=== PATIENT | male | born 1990 | race Caucasian/White ===

== ENCOUNTER 2016-11-29 10:14 | Inpatient (IN) | payer OTHER ==
[2016-11-29 11:08] VITALS: BMI 24.3
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
[2016-11-29] MEDS ORDERED: chlordiazePOXIDE HCL 25 MG CAPSULE PO PRN (12:26)
[2016-11-29] MEDS ORDERED: MAGNESIUM HYDROX 2400MG/30ML ORAL SUSPENSION 30 ML CUP PO PRN (12:26)
[2016-11-29] MEDS ORDERED: LOPERAMIDE HCL 2 MG CAPSULE PO PRN (12:26)
[2016-11-29] MEDS ORDERED: ACETAMINOPHEN 325 MG TABLET (FP) PO PRN (12:26)
[2016-11-29] MEDS ORDERED: MENTHOL/PHENOL 1 EACH UD MM PRN (12:26)
[2016-11-29] MEDS ORDERED: P-EPHED 60MG/TRIPROLIDI 2.5MG TABLET PO PRN (12:26)
[2016-11-29] MEDS ORDERED: MAG HYDROX/AL HYDROX/SIMETH 30 ML UNIT-DOSE CUP PO PRN (12:26)
[2016-11-29] MEDS ORDERED: hydrOXYzine PAMOATE 50 MG CAPSULE (FP) PO PRN (12:26)
[2016-11-29] MEDS ORDERED: guaiFENesin/D-METHORPHAN HB 10 ML UNIT-DOSE CUPS PO PRN (12:26)
[2016-11-29] MEDS ORDERED: MAGNESIUM CITRATE 300 ML BOTTLE PO PRN (12:26)
[2016-11-29] MEDS ORDERED: IBUPROFEN 400 MG TABLET (FP) PO PRN (12:26)
[2016-11-29] MEDS ORDERED: chlordiazePOXIDE HCL 25 MG CAPSULE PO ONE (15:00)
[2016-11-29] MEDS: CEPHALEXIN MONOHYDRATE 500 MG CAPSULE (UD) PO SCH ×2 (17:58→22:13)
[2016-11-29] MEDS: chlordiazePOXIDE HCL 25 MG CAPSULE PO SCH ×2 (18:00→22:13)
[2016-11-29] MEDS: NICOTINE 21 MG/24 HOURS TOPICAL PATCH TD SCH (18:03)
[2016-11-29 19:22] LABS: URINE APPEARANCE CLEAR; URINE BLOOD NEGATIVE (NEGATIVE); URINE GLUCOSE (UA) NEGATIVE (NEGATIVE); URINE KETONE TRACE (NEGATIVE); URINE LEUK ESTERASE NEGATIVE (NEGATIVE); URINE NITRITE NEGATIVE (NEGATIVE); URINE UROBILINOGEN NEGATIVE E.U./dl (0.2-1.0)
[2016-11-29 19:23] LABS: URINE COLOR YELLOW; URINE PROTEIN 1+ (NEGATIVE)
[2016-11-29 19:25] LABS: URINE MUCUS MANY; URINE RBC 28 /hpf (0-3); URINE WBC 2 /hpf (3-5)
[2016-11-29] MEDS ORDERED: diphenhydrAMINE HCL 50 MG CAPSULE PO PRN (22:00)
[2016-11-29] MEDS: THIAMINE HCL 100 MG TABLET (FP) PO SCH (22:13)
[2016-11-30] MEDS: chlordiazePOXIDE HCL 25 MG CAPSULE PO SCH ×4 (05:56→22:26)
[2016-11-30] MEDS: NICOTINE 21 MG/24 HOURS TOPICAL PATCH TD SCH (10:42)
[2016-11-30] MEDS ORDERED: METHADONE HCL 10 MG TABLET (FOR DETOX USE ONLY) PO ONE (11:00)
[2016-11-30 11:02] LABS: URINE APPEARANCE CLEAR; URINE BILIRUBIN NEGATIVE (NEGATIVE); URINE BLOOD 2+ (NEGATIVE); URINE COLOR YELLOW; URINE GLUCOSE (UA) NEGATIVE (NEGATIVE); URINE KETONE NEGATIVE (NEGATIVE); URINE NITRITE NEGATIVE (NEGATIVE); URINE PROTEIN NEGATIVE (NEGATIVE); URINE UROBILINOGEN NEGATIVE E.U./dl (0.2-1.0)
[2016-11-30 11:03] LABS: URINE LEUK ESTERASE TRACE (NEGATIVE)
[2016-11-30 11:04] LABS: MCHC 33.9 g/dl (32.0-35.9); MEAN CELL VOLUME 94.6 fl (80-96); MEAN PLT VOLUME 8.9 fl (7.5-11.1); PLATELET COUNT 224 K/MM3 (134-434); RDW 13.2 % (11.9-15.9); WHITE BLOOD COUNT 4.9 K/mm3 (4.0-10.0)
[2016-11-30 11:07] LABS: CALCIUM OXALATE CRYSTALS MODERATE /hpf (NONE SEEN); URINE MUCUS RARE; URINE RBC 11 /hpf (0-3); URINE WBC <1 /hpf (3-5)
[2016-11-30] MEDS ORDERED: METHADONE HCL 5 MG TABLET ONE (11:21)
[2016-11-30] MEDS ORDERED: METHADONE HCL 40 MG DISPERSABLE TABLET ONE (11:22)
[2016-11-30 11:26] LABS: ALBUMIN 3.3 g/dl (3.4-5.0); ALK PHOS 55 U/L (45-117); ANION GAP 8 (8-16); BILIRUBIN,TOTAL 0.2 mg/dL (0.2-1.0); CALCIUM 8.2 mg/dL (8.5-10.1); CO2 28 mmol/L (21-32); COCKROFT - GAULT 161.27; CREATININE 0.7 mg/dL (0.7-1.3); GLUCOSE,RANDOM 84 mg/dL (74-106); SGOT/AST 26 U/L (15-37); SGPT/ALT 28 U/L (12-78); TOT PROT 6.3 g/dl (6.4-8.2)
[2016-11-30] MEDS ORDERED: METHADONE 80 MG, METHADONE 5 MG PO ONE (11:30)
[2016-11-30] MEDS: CEPHALEXIN MONOHYDRATE 500 MG CAPSULE (UD) PO SCH ×2 (12:38→22:26)
[2016-11-30] MEDS: PRENATAL VITAMINS W/ FOLIC ACID TABLET (FP) PO SCH (12:38)
--- NOTE | 2016-11-30 12:44 | EKG ---
Test Reason : Blood Pressure : / mmHG Vent. Rate : 058 BPM Atrial Rate : 058 BPM P-R Int : 146 ms QRS Dur : 094 ms QT Int : 448 ms P-R-T Axes : 004 065 039 degrees QTc Int : 439 ms SINUS BRADYCARDIA NON-SPECIFIC INTRA-VENTRICULAR CONDUCTION DELAY NO PREVIOUS ECGS AVAILABLE Confirmed by FRED PRABHAKAR MD ([id number]) on 11/30/2016 12:44:20 PM Referred By: Confirmed By:FRED PRABHAKAR MD
--- NOTE | 2016-11-30 12:50 | PN ---
[facility] CIWA - CIWA Score Nausea/Vomitin-No Nausea/No Vomiting Muscle Tremors: 4-Moderate,w/Arms Extend Anxiety: 4-Mod. Anxious/Guarded Agitation: 4-Moderately Restless Paroxysmal Sweats: No Perspiration Orientation: 0-Oriented Tacttile Disturbances: 1-Very Mild Itch/Numbness Auditory Disturbances: 0-None Visual Disturbances: 0-None Headache: 2-Mild CIWA-Ar Total Score: 15 S Progress Note (SOAP) Subjective: Anxious, restless, sweating, chills, tremor, interrupted sleep Objective: 11/30/16 12:45 Last Vital Signs Temp Pulse Resp BP Pulse Ox 97.6 F 71 18 125/75 11/30/16 09:34 11/30/16 09:34 11/30/16 09:34 11/30/16 09:34 Laboratory Tests 11/29/16 11/30/16 11/30/16 19:03 07:00 07:00 WBC 4.9 D RBC 4.27 Hgb 13.7 D Hct 40.4 MCV 94.6 MCHC 33.9 RDW 13.2 Plt Count 224 D MPV 8.9 D Sodium 142 Potassium 4.3 Chloride 106 Carbon Dioxide 28 Anion Gap 8 BUN 13 Creatinine 0.7 D Creat Clearance w eGFR > 60 Random Glucose 84 Calcium 8.2 L Total Bilirubin 0.2 D AST 26 ALT 28 D Alkaline Phosphatase 55 D Total Protein 6.3 L Albumin 3.3 L Urine Color Yellow Urine Appearance Clear Urine pH 6.0 Ur Specific [place] 1.034 Urine Protein 1+ H Urine Glucose (UA) Negative Urine Ketones Trace H Urine Blood Negative Urine Nitrite Negative Urine Bilirubin 2.0 Urine Urobilinogen Negative Ur Leukocyte Esterase Negative Urine RBC 28 Urine WBC 2 Ur Epithelial Cells Rare Calcium Oxalate Crystal Urine Mucus Many RPR Titer 11/30/16 11/30/16 07:00 09:58 WBC RBC Hgb Hct MCV MCHC RDW Plt Count MPV Sodium Potassium Chloride Carbon Dioxide Anion Gap BUN Creatinine Creat Clearance w eGFR Random Glucose Calcium Total Bilirubin AST ALT Alkaline Phosphatase Total Protein Albumin Urine Color Yellow Urine Appearance Clear Urine pH 5.0 Ur Specific [place] 1.028 Urine Protein Negative Urine Glucose (UA) Negative Urine Ketones Negative Urine Blood 2+ H Urine Nitrite Negative Urine Bilirubin Negative Urine Urobilinogen Negative Ur Leukocyte Esterase Trace H Urine RBC 11 Urine WBC <1 Ur Epithelial Cells Rare Calcium Oxalate Crystal Moderate Urine Mucus Rare RPR Titer Nonreactive Labs noted: UA: 2+ blood, 1+ protein Assessment: 11/30/16 12:50 Withdrawal symptoms Noted with hematuria and proteinuria Plan: Continue detox Hematuria and proteinuria: encouraged to drink lots of water, repeat UA
[2016-11-30] MEDS: NICOTINE POLACRILEX 4 MG GUM BUC PRN ×2 (18:03→22:27)
[2016-11-30] MEDS: THIAMINE HCL 100 MG TABLET (FP) PO SCH (22:26)
[2016-12-01] MEDS: chlordiazePOXIDE HCL 25 MG CAPSULE PO SCH ×2 (05:45→10:29)
[2016-12-01] MEDS ORDERED: METHADONE HCL 40 MG DISPERSABLE TABLET PO SCH (09:00)
[2016-12-01] MEDS ORDERED: METHADONE HCL 40 MG DISPERSABLE TABLET ONE (09:11)
[2016-12-01] MEDS ORDERED: METHADONE HCL 5 MG TABLET ONE (09:11)
[2016-12-01] MEDS: CEPHALEXIN MONOHYDRATE 500 MG CAPSULE (UD) PO SCH ×2 (10:29→22:11)
[2016-12-01] MEDS: PRENATAL VITAMINS W/ FOLIC ACID TABLET (FP) PO SCH (10:29)
[2016-12-01] MEDS: METHADONE 80 MG, METHADONE 5 MG PO SCH (10:30)
[2016-12-01] MEDS: NICOTINE POLACRILEX 4 MG GUM BUC PRN ×4 (10:33→22:13)
--- NOTE | 2016-12-01 15:14 | PN ---
[facility] CIWA - CIWA Score Nausea/Vomitin-No Nausea/No Vomiting Muscle Tremors: 4-Moderate,w/Arms Extend Anxiety: 4-Mod. Anxious/Guarded Agitation: 4-Moderately Restless Paroxysmal Sweats: 3 Orientation: 0-Oriented Tacttile Disturbances: 0-None Auditory Disturbances: 0-None Visual Disturbances: 0-None Headache: 0-None Present CIWA-Ar Total Score: 15 BHS Progress Note (SOAP) Subjective: Sweating,interrupted sleep,restless,tremors Objective: 12/01/16 15:13 Vital Signs - 8 hr 12/01/16 12/01/16 12/01/16 09:21 13:56 13:58 Temperature 97.4 F L Pulse Rate 59 L 70 70 Respiratory 20 18 18 Rate Blood Pressure 102/63 122/68 122/68 Laboratory Tests 11/29/16 11/30/16 11/30/16 19:03 07:00 07:00 WBC 4.9 D RBC 4.27 Hgb 13.7 D Hct 40.4 MCV 94.6 MCHC 33.9 RDW 13.2 Plt Count 224 D MPV 8.9 D Sodium 142 Potassium 4.3 Chloride 106 Carbon Dioxide 28 Anion Gap 8 BUN 13 Creatinine 0.7 D Creat Clearance w eGFR > 60 Random Glucose 84 Calcium 8.2 L Total Bilirubin 0.2 D AST 26 ALT 28 D Alkaline Phosphatase 55 D Total Protein 6.3 L Albumin 3.3 L Urine Color Yellow Urine Appearance Clear Urine pH 6.0 Ur Specific [place] 1.034 Urine Protein 1+ H Urine Glucose (UA) Negative Urine Ketones Trace H Urine Blood Negative Urine Nitrite Negative Urine Bilirubin 2.0 Urine Urobilinogen Negative Ur Leukocyte Esterase Negative Urine RBC 28 Urine WBC 2 Ur Epithelial Cells Rare Calcium Oxalate Crystal Urine Mucus Many RPR Titer 11/30/16 11/30/16 07:00 09:58 WBC RBC Hgb Hct MCV MCHC RDW Plt Count MPV Sodium Potassium Chloride Carbon Dioxide Anion Gap BUN Creatinine Creat Clearance w eGFR Random Glucose Calcium Total Bilirubin AST ALT Alkaline Phosphatase Total Protein Albumin Urine Color Yellow Urine Appearance Clear Urine pH 5.0 Ur Specific [place] 1.028 Urine Protein Negative Urine Glucose (UA) Negative Urine Ketones Negative Urine Blood 2+ H Urine Nitrite Negative Urine Bilirubin Negative Urine Urobilinogen Negative Ur Leukocyte Esterase Trace H Urine RBC 11 Urine WBC <1 Ur Epithelial Cells Rare Calcium Oxalate Crystal Moderate Urine Mucus Rare RPR Titer Nonreactive labs noted Assessment: 12/01/16 15:14 Withdrawal sx. Plan: Continue detox
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
[2016-12-01] MEDS: chlordiazePOXIDE 5 MG CAPSULE PO SCH ×2 (17:23→22:11)
[2016-12-01] MEDS: THIAMINE HCL 100 MG TABLET (FP) PO SCH (22:10)
[2016-12-02] MEDS ORDERED: METHADONE HCL 5 MG TABLET ONE (04:03)
[2016-12-02] MEDS ORDERED: METHADONE HCL 40 MG DISPERSABLE TABLET ONE (04:04)
[2016-12-02] MEDS: METHADONE 80 MG, METHADONE 5 MG PO SCH (05:52)
[2016-12-02] MEDS: chlordiazePOXIDE 5 MG CAPSULE PO SCH ×2 (05:52→10:12)
[2016-12-02] MEDS: NICOTINE POLACRILEX 4 MG GUM BUC PRN ×4 (05:57→21:27)
--- NOTE | 2016-12-02 09:37 | PN ---
B[facility] Progress Note (SOAP) Subjective: Sweating,interrupted sleep & body aches Objective: 12/02/16 09:35 Vital Signs - 8 hr 12/02/16 12/02/16 12/02/16 03:03 03:30 06:21 Temperature 97.5 F L Pulse Rate 61 Respiratory 18 18 16 Rate Blood Pressure 111/63 12/02/16 09:21 Temperature Pulse Rate 66 Respiratory 20 Rate Blood Pressure 117/75 Laboratory Last Values WBC 4.9 K/mm3 (4.0-10.0) D 11/30/16 07:00 RBC 4.27 M/mm3 (4.00-5.60) 11/30/16 07:00 Hgb 13.7 GM/dL (11.7-16.9) D 11/30/16 07:00 Hct 40.4 % (35.4-49) 11/30/16 07:00 MCV 94.6 fl (80-96) 11/30/16 07:00 MCHC 33.9 g/dl (32.0-35.9) 11/30/16 07:00 RDW 13.2 % (11.9-15.9) 11/30/16 07:00 Plt Count 224 K/MM3 (134-434) D 11/30/16 07:00 MPV 8.9 fl (7.5-11.1) D 11/30/16 07:00 Sodium 142 mmol/L (136-145) 11/30/16 07:00 Potassium 4.3 mmol/L (3.5-5.1) 11/30/16 07:00 Chloride 106 mmol/L (98-107) 11/30/16 07:00 Carbon Dioxide 28 mmol/L (21-32) 11/30/16 07:00 Anion Gap 8 (8-16) 11/30/16 07:00 BUN 13 mg/dL (7-18) 11/30/16 07:00 Creatinine 0.7 mg/dL (0.7-1.3) D 11/30/16 07:00 Creat Clearance w eGFR > 60 (>60) 11/30/16 07:00 Random Glucose 84 mg/dL (74-106) 11/30/16 07:00 Calcium 8.2 mg/dL (8.5-10.1) L 11/30/16 07:00 Total Bilirubin 0.2 mg/dL (0.2-1.0) D 11/30/16 07:00 AST 26 U/L (15-37) 11/30/16 07:00 ALT 28 U/L (12-78) D 11/30/16 07:00 Alkaline Phosphatase 55 U/L (45-117) D 11/30/16 07:00 Total Protein 6.3 g/dl (6.4-8.2) L 11/30/16 07:00 Albumin 3.3 g/dl (3.4-5.0) L 11/30/16 07:00 Urine Color Yellow 11/30/16 09:58 Urine Appearance Clear 11/30/16 09:58 Urine pH 5.0 (5.0-8.0) 11/30/16 09:58 Ur Specific [place] 1.028 (1.001-1.035) 11/30/16 09:58 Urine Protein Negative (NEGATIVE) 11/30/16 09:58 Urine Glucose (UA) Negative (NEGATIVE) 11/30/16 09:58 Urine Ketones Negative (NEGATIVE) 11/30/16 09:58 Urine Blood 2+ (NEGATIVE) H 11/30/16 09:58 Urine Nitrite Negative (NEGATIVE) 11/30/16 09:58 Urine Bilirubin Negative (NEGATIVE) 11/30/16 09:58 Urine Urobilinogen Negative E.U./dl (0.2-1.0) 11/30/16 09:58 Ur Leukocyte Esterase Trace (NEGATIVE) H 11/30/16 09:58 Urine RBC 11 /hpf (0-3) 11/30/16 09:58 Urine WBC <1 /hpf (3-5) 11/30/16 09:58 Ur Epithelial Cells Rare /hpf (FEW) 11/30/16 09:58 Calcium Oxalate Crystal Moderate /hpf (NONE SEEN) 11/30/16 09:58 Urine Mucus Rare 11/30/16 09:58 RPR Titer Nonreactive (NONREACTIVE) 11/30/16 07:00 labs noted Assessment: 12/02/16 09:36 Withdrawal sx. Plan: Continue detox
[2016-12-02] MEDS: PRENATAL VITAMINS W/ FOLIC ACID TABLET (FP) PO SCH (10:12)
[2016-12-02] MEDS: CEPHALEXIN MONOHYDRATE 500 MG CAPSULE (UD) PO SCH ×2 (10:12→23:03)
[2016-12-02] MEDS: chlordiazePOXIDE HCL 10 MG CAPSULE PO SCH ×2 (17:12→23:04)
[2016-12-02] MEDS: THIAMINE HCL 100 MG TABLET (FP) PO SCH (23:04)
[2016-12-03] MEDS ORDERED: METHADONE HCL 40 MG DISPERSABLE TABLET ONE (04:37)
[2016-12-03] MEDS ORDERED: METHADONE HCL 5 MG TABLET ONE (04:37)
[2016-12-03] MEDS: chlordiazePOXIDE HCL 10 MG CAPSULE PO SCH ×2 (06:11→10:27)
[2016-12-03] MEDS: METHADONE 80 MG, METHADONE 5 MG PO SCH (06:11)
[2016-12-03] MEDS: NICOTINE POLACRILEX 4 MG GUM BUC PRN ×6 (06:13→22:07)
[2016-12-03] MEDS: CEPHALEXIN MONOHYDRATE 500 MG CAPSULE (UD) PO SCH (10:27)
[2016-12-03] MEDS: PRENATAL VITAMINS W/ FOLIC ACID TABLET (FP) PO SCH (10:27)
--- NOTE | 2016-12-03 12:02 | PN ---
BHS Progress Note (SOAP) Subjective: Sweating, Tremors. Objective: PT. A & O X 2 (DISORIENTED ABOUT DAY / DATE). PT. OBSERVED AMBULATING ON UNIT. 12/03/16 11:58 Vital Signs Temperature 97.6 F 12/03/16 09:46 Pulse Rate 73 12/03/16 09:46 Respiratory Rate 18 12/03/16 09:46 Blood Pressure 120/76 12/03/16 09:46 O2 Sat by Pulse Oximetry (%) Laboratory Last Values WBC 4.9 K/mm3 (4.0-10.0) D 11/30/16 07:00 RBC 4.27 M/mm3 (4.00-5.60) 11/30/16 07:00 Hgb 13.7 GM/dL (11.7-16.9) D 11/30/16 07:00 Hct 40.4 % (35.4-49) 11/30/16 07:00 MCV 94.6 fl (80-96) 11/30/16 07:00 MCHC 33.9 g/dl (32.0-35.9) 11/30/16 07:00 RDW 13.2 % (11.9-15.9) 11/30/16 07:00 Plt Count 224 K/MM3 (134-434) D 11/30/16 07:00 MPV 8.9 fl (7.5-11.1) D 11/30/16 07:00 Sodium 142 mmol/L (136-145) 11/30/16 07:00 Potassium 4.3 mmol/L (3.5-5.1) 11/30/16 07:00 Chloride 106 mmol/L (98-107) 11/30/16 07:00 Carbon Dioxide 28 mmol/L (21-32) 11/30/16 07:00 Anion Gap 8 (8-16) 11/30/16 07:00 BUN 13 mg/dL (7-18) 11/30/16 07:00 Creatinine 0.7 mg/dL (0.7-1.3) D 11/30/16 07:00 Creat Clearance w eGFR > 60 (>60) 11/30/16 07:00 Random Glucose 84 mg/dL (74-106) 11/30/16 07:00 Calcium 8.2 mg/dL (8.5-10.1) L 11/30/16 07:00 Total Bilirubin 0.2 mg/dL (0.2-1.0) D 11/30/16 07:00 AST 26 U/L (15-37) 11/30/16 07:00 ALT 28 U/L (12-78) D 11/30/16 07:00 Alkaline Phosphatase 55 U/L (45-117) D 11/30/16 07:00 Total Protein 6.3 g/dl (6.4-8.2) L 11/30/16 07:00 Albumin 3.3 g/dl (3.4-5.0) L 11/30/16 07:00 Urine Color Yellow 11/30/16 09:58 Urine Appearance Clear 11/30/16 09:58 Urine pH 5.0 (5.0-8.0) 11/30/16 09:58 Ur Specific [place] 1.028 (1.001-1.035) 11/30/16 09:58 Urine Protein Negative (NEGATIVE) 11/30/16 09:58 Urine Glucose (UA) Negative (NEGATIVE) 11/30/16 09:58 Urine Ketones Negative (NEGATIVE) 11/30/16 09:58 Urine Blood 2+ (NEGATIVE) H 11/30/16 09:58 Urine Nitrite Negative (NEGATIVE) 11/30/16 09:58 Urine Bilirubin Negative (NEGATIVE) 11/30/16 09:58 Urine Urobilinogen Negative E.U./dl (0.2-1.0) 11/30/16 09:58 Ur Leukocyte Esterase Trace (NEGATIVE) H 11/30/16 09:58 Urine RBC 11 /hpf (0-3) 11/30/16 09:58 Urine WBC <1 /hpf (3-5) 11/30/16 09:58 Ur Epithelial Cells Rare /hpf (FEW) 11/30/16 09:58 Calcium Oxalate Crystal Moderate /hpf (NONE SEEN) 11/30/16 09:58 Urine Mucus Rare 11/30/16 09:58 RPR Titer Nonreactive (NONREACTIVE) 11/30/16 07:00 LABS NOTED. Assessment: 12/03/16 12:00 WITHDRAWAL SYMPTOMS. Plan: CONTINUE DETOX. ADVISED PATIENT TO FOLLOW-UP WITH [facility] / REHAB MEDICAL PROVIDER AFTER DISCHARGE FROM DETOX FOR GENERAL MEDICAL ASSESSMENT AND FOR ABNORMAL ADMISSION LAB VALUES.
[2016-12-03] MEDS: THIAMINE HCL 100 MG TABLET (FP) PO SCH (22:34)
[2016-12-04] MEDS: NICOTINE POLACRILEX 4 MG GUM BUC PRN ×2 (01:18→09:09)
[2016-12-04] MEDS ORDERED: METHADONE HCL 5 MG TABLET ONE (04:49)
[2016-12-04] MEDS ORDERED: METHADONE HCL 40 MG DISPERSABLE TABLET ONE (04:50)
[2016-12-04] MEDS: METHADONE 80 MG, METHADONE 5 MG PO SCH (05:39)
[2016-12-04 06:31] VITALS: BP 119/79; PULSE 65; TEMP 97.1
[2016-12-04] MEDS: PRENATAL VITAMINS W/ FOLIC ACID TABLET (FP) PO SCH (10:52)
--- NOTE | 2016-12-04 11:10 | DS ---
[facility] Detox Discharge Summary Admission Date: 11/29/16 Discharge Date: 12/04/16 - History Present History: Alcohol Dependence, Cocaine Dependence, MMTP Pertinent Past History: ADHD - Physical Exam Results Vital Signs: Vital Signs Temperature 97.1 F L 12/04/16 06:31 Pulse Rate 65 12/04/16 06:31 Respiratory Rate 18 12/04/16 06:31 Blood Pressure 119/79 12/04/16 06:31 O2 Sat by Pulse Oximetry (%) Pertinent Admission Physical Exam Findings: withdrawal sx. Laboratory Last Values WBC 4.9 K/mm3 (4.0-10.0) D 11/30/16 07:00 RBC 4.27 M/mm3 (4.00-5.60) 11/30/16 07:00 Hgb 13.7 GM/dL (11.7-16.9) D 11/30/16 07:00 Hct 40.4 % (35.4-49) 11/30/16 07:00 MCV 94.6 fl (80-96) 11/30/16 07:00 MCHC 33.9 g/dl (32.0-35.9) 11/30/16 07:00 RDW 13.2 % (11.9-15.9) 11/30/16 07:00 Plt Count 224 K/MM3 (134-434) D 11/30/16 07:00 MPV 8.9 fl (7.5-11.1) D 11/30/16 07:00 Sodium 142 mmol/L (136-145) 11/30/16 07:00 Potassium 4.3 mmol/L (3.5-5.1) 11/30/16 07:00 Chloride 106 mmol/L (98-107) 11/30/16 07:00 Carbon Dioxide 28 mmol/L (21-32) 11/30/16 07:00 Anion Gap 8 (8-16) 11/30/16 07:00 BUN 13 mg/dL (7-18) 11/30/16 07:00 Creatinine 0.7 mg/dL (0.7-1.3) D 11/30/16 07:00 Creat Clearance w eGFR > 60 (>60) 11/30/16 07:00 Random Glucose 84 mg/dL (74-106) 11/30/16 07:00 Calcium 8.2 mg/dL (8.5-10.1) L 11/30/16 07:00 Total Bilirubin 0.2 mg/dL (0.2-1.0) D 11/30/16 07:00 AST 26 U/L (15-37) 11/30/16 07:00 ALT 28 U/L (12-78) D 11/30/16 07:00 Alkaline Phosphatase 55 U/L (45-117) D 11/30/16 07:00 Total Protein 6.3 g/dl (6.4-8.2) L 11/30/16 07:00 Albumin 3.3 g/dl (3.4-5.0) L 11/30/16 07:00 Urine Color Yellow 11/30/16 09:58 Urine Appearance Clear 11/30/16 09:58 Urine pH 5.0 (5.0-8.0) 11/30/16 09:58 Ur Specific [place] 1.028 (1.001-1.035) 11/30/16 09:58 Urine Protein Negative (NEGATIVE) 11/30/16 09:58 Urine Glucose (UA) Negative (NEGATIVE) 11/30/16 09:58 Urine Ketones Negative (NEGATIVE) 11/30/16 09:58 Urine Blood 2+ (NEGATIVE) H 11/30/16 09:58 Urine Nitrite Negative (NEGATIVE) 11/30/16 09:58 Urine Bilirubin Negative (NEGATIVE) 11/30/16 09:58 Urine Urobilinogen Negative E.U./dl (0.2-1.0) 11/30/16 09:58 Ur Leukocyte Esterase Trace (NEGATIVE) H 11/30/16 09:58 Urine RBC 11 /hpf (0-3) 11/30/16 09:58 Urine WBC <1 /hpf (3-5) 11/30/16 09:58 Ur Epithelial Cells Rare /hpf (FEW) 11/30/16 09:58 Calcium Oxalate Crystal Moderate /hpf (NONE SEEN) 11/30/16 09:58 Urine Mucus Rare 11/30/16 09:58 RPR Titer Nonreactive (NONREACTIVE) 11/30/16 07:00 labs noted - Treatment Hospital Course: Detox Protocol Followed, Detoxed Safely, Responded well, Discharged Condition Good, Rehab Referral Accepted Patient has Accepted a Rehab Referral to: [facility] - Medication Discharge Medications: Ambulatory Orders Dextroamphetamine/Amphetamine [Adderall Xr 30 mg Capsule] 30 mg PO DAILY Methadone HCl 85 mg PO DAILY 11/29/16 - Diagnosis (1) Cocaine dependence Current Visit: Yes Status: Acute Qualifiers: Substance use status: uncomplicated Qualified Code(s): F14.20 - Cocaine dependence, uncomplicated (2) Nicotine dependence Current Visit: Yes Status: Acute Qualifiers: Nicotine product type: cigarettes Substance use status: uncomplicated Qualified Code(s): F17.210 - Nicotine dependence, cigarettes, uncomplicated (3) Opioid dependence on agonist therapy Current Visit: Yes Status: Acute (4) Sedative hypnotic or anxiolytic dependence Current Visit: Yes Status: Acute (5) ADHD (attention deficit hyperactivity disorder) Current Visit: Yes Status: Chronic (6) Alcohol dependence with uncomplicated withdrawal Current Visit: Yes Status: Chronic (7) Drug-induced mood disorder Current Visit: Yes Status: Acute - AMA Did Patient Leave Against Medical Advice: No
== END 2016-12-04 12:25 | disposition other institution (70) | DRG 773 ==
LOC: YASAS 10:14 → Y3N 14:54
PROVIDERS: ADMIT Internal Medicine; ATTEND Internal Medicine
PROC: HZ2ZZZZ Detoxification Services for Substance Abuse Treatment (ICD-10-PCS; principal; 2016-11-29)
DX: F11.20 Opioid dependence, uncomplicated (principal); F13.20 Sedative, hypnotic or anxiolytic dependence, uncomplicated; F10.230 Alcohol dependence with withdrawal, uncomplicated; F14.20 Cocaine dependence, uncomplicated; F17.210 Nicotine dependence, cigarettes, uncomplicated; F90.9 Attention-deficit hyperactivity disorder, unspecified type; F19.24 Other psychoactive substance dependence with psychoactive substance-induced mood disorder; L03.113 Cellulitis of right upper limb; R31.9 Hematuria, unspecified; R80.9 Proteinuria, unspecified; Z86.69 Personal history of other diseases of the nervous system and sense organs
CPT/HCPCS: 36415; 80053; 81003; 81015; 85027; 86593; 93005; 93010

== ENCOUNTER 2016-12-04 12:36 | Inpatient (IN) | payer OTHER ==
[2016-12-04] MEDS ORDERED: LOPERAMIDE HCL 2 MG CAPSULE PO PRN (13:08)
[2016-12-04] MEDS ORDERED: MENTHOL/PHENOL 1 EACH UD MM PRN (13:08)
[2016-12-04] MEDS ORDERED: guaiFENesin/D-METHORPHAN HB 10 ML UNIT-DOSE CUPS PO PRN (13:08)
[2016-12-04] MEDS ORDERED: IBUPROFEN 400 MG TABLET (FP) PO PRN (13:08)
[2016-12-04] MEDS ORDERED: diphenhydrAMINE HCL 50 MG CAPSULE PO PRN (13:08)
[2016-12-04] MEDS ORDERED: P-EPHED 60MG/TRIPROLIDI 2.5MG TABLET PO PRN (13:08)
[2016-12-04] MEDS ORDERED: MAGNESIUM CITRATE 300 ML BOTTLE PO PRN (13:08)
[2016-12-04] MEDS ORDERED: MAG HYDROX/AL HYDROX/SIMETH 30 ML UNIT-DOSE CUP PO PRN (13:08)
[2016-12-04] MEDS ORDERED: ACETAMINOPHEN 325 MG TABLET (FP) PO PRN (13:08)
--- NOTE | 2016-12-04 16:27 | HP ---
[facility] Re[facility] Assess/Revision - Admission History Admitted to Rehab from: [facility] Date of Admission to Rehab: 12/04/16 - Vital signs Vital Signs: Vital Signs Period Temp Pulse Resp BP Sys/Carrillo Pulse Ox Last 24 Hr 98.5 F 74 18 114/67 - Findings Detox History & Physical reviewed: Yes Concur with findings: Yes Comments/Additional Findings: transferred from detox to rehab admission as per protocol
[2016-12-04] MEDS: THIAMINE HCL 100 MG TABLET (FP) PO SCH (22:15)
[2016-12-05] MEDS: NICOTINE POLACRILEX 4 MG GUM BUC PRN ×6 (03:51→21:51)
[2016-12-05] MEDS ORDERED: METHADONE HCL 5 MG TABLET ONE (04:14)
[2016-12-05] MEDS ORDERED: METHADONE HCL 40 MG DISPERSABLE TABLET ONE (04:14)
[2016-12-05] MEDS ORDERED: METHADONE HCL 10 MG TABLET PO SCH (06:00)
[2016-12-05] MEDS: METHADONE 80 MG, METHADONE 5 MG PO SCH (06:15)
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
[2016-12-05] MEDS: NICOTINE 21 MG/24 HOURS TOPICAL PATCH TD SCH (10:22)
[2016-12-05] MEDS: PRENATAL VITAMINS W/ FOLIC ACID TABLET (FP) PO SCH (10:23)
[2016-12-05 11:45] LABS: HIV 1 & 2 AB NEGATIVE; HIV 1 AGp24 NEGATIVE
[2016-12-05] MEDS: QUEtiapine FUMARATE 100 MG TABLET (FP) PO SCH (21:50)
[2016-12-05] MEDS: THIAMINE HCL 100 MG TABLET (FP) PO SCH (21:50)
[2016-12-05] MEDS: CYCLOBENZAPRINE HCL 10 MG TABLET (FP) PO PRN (21:50)
[2016-12-06] MEDS ORDERED: METHADONE HCL 40 MG DISPERSABLE TABLET ONE (03:36)
[2016-12-06] MEDS ORDERED: METHADONE HCL 5 MG TABLET ONE (03:36)
[2016-12-06] MEDS: METHADONE 80 MG, METHADONE 5 MG PO SCH (06:23)
[2016-12-06] MEDS: NICOTINE POLACRILEX 4 MG GUM BUC PRN ×5 (06:25→21:35)
[2016-12-06] MEDS: PRENATAL VITAMINS W/ FOLIC ACID TABLET (FP) PO SCH (10:42)
[2016-12-06] MEDS: NICOTINE 21 MG/24 HOURS TOPICAL PATCH TD SCH (10:43)
[2016-12-06] MEDS: THIAMINE HCL 100 MG TABLET (FP) PO SCH (21:33)
[2016-12-06] MEDS: QUEtiapine FUMARATE 100 MG TABLET (FP) PO SCH (21:33)
[2016-12-06] MEDS: CYCLOBENZAPRINE HCL 10 MG TABLET (FP) PO PRN (21:34)
[2016-12-07] MEDS ORDERED: METHADONE HCL 5 MG TABLET ONE (03:27)
[2016-12-07] MEDS ORDERED: METHADONE HCL 40 MG DISPERSABLE TABLET ONE (03:28)
[2016-12-07] MEDS: METHADONE 80 MG, METHADONE 5 MG PO SCH (06:23)
[2016-12-07] MEDS: NICOTINE POLACRILEX 4 MG GUM BUC PRN ×5 (06:23→21:36)
[2016-12-07] MEDS: PRENATAL VITAMINS W/ FOLIC ACID TABLET (FP) PO SCH (10:24)
[2016-12-07] MEDS: NICOTINE 21 MG/24 HOURS TOPICAL PATCH TD SCH (10:24)
[2016-12-07] MEDS: QUEtiapine FUMARATE 100 MG TABLET (FP) PO SCH (21:35)
[2016-12-07] MEDS: THIAMINE HCL 100 MG TABLET (FP) PO SCH (21:35)
[2016-12-07] MEDS: CYCLOBENZAPRINE HCL 10 MG TABLET (FP) PO PRN (21:36)
[2016-12-08] MEDS ORDERED: METHADONE HCL 40 MG DISPERSABLE TABLET ONE (03:26)
[2016-12-08] MEDS ORDERED: METHADONE HCL 5 MG TABLET ONE (03:26)
[2016-12-08] MEDS: METHADONE 80 MG, METHADONE 5 MG PO SCH (06:17)
[2016-12-08] MEDS: NICOTINE POLACRILEX 4 MG GUM BUC PRN ×7 (06:18→21:42)
[2016-12-08] MEDS: NICOTINE 21 MG/24 HOURS TOPICAL PATCH TD SCH (10:37)
[2016-12-08] MEDS: PRENATAL VITAMINS W/ FOLIC ACID TABLET (FP) PO SCH (10:37)
[2016-12-08] MEDS: QUEtiapine FUMARATE 100 MG TABLET (FP) PO SCH (21:40)
[2016-12-08] MEDS: CYCLOBENZAPRINE HCL 10 MG TABLET (FP) PO PRN (21:40)
[2016-12-08] MEDS: THIAMINE HCL 100 MG TABLET (FP) PO SCH (21:40)
[2016-12-09] MEDS ORDERED: METHADONE HCL 5 MG TABLET ONE (03:33)
[2016-12-09] MEDS ORDERED: METHADONE HCL 40 MG DISPERSABLE TABLET ONE (03:33)
[2016-12-09] MEDS: METHADONE 80 MG, METHADONE 5 MG PO SCH (06:20)
[2016-12-09] MEDS: NICOTINE POLACRILEX 4 MG GUM BUC PRN ×4 (06:21→21:42)
[2016-12-09] MEDS: NICOTINE 21 MG/24 HOURS TOPICAL PATCH TD SCH (10:31)
[2016-12-09] MEDS: PRENATAL VITAMINS W/ FOLIC ACID TABLET (FP) PO SCH (10:31)
[2016-12-09] MEDS: MAGNESIUM HYDROX 2400MG/30ML ORAL SUSPENSION 30 ML CUP PO PRN ×2 (14:06→21:41)
[2016-12-09] MEDS: THIAMINE HCL 100 MG TABLET (FP) PO SCH (21:41)
[2016-12-09] MEDS: QUEtiapine FUMARATE 100 MG TABLET (FP) PO SCH (21:41)
[2016-12-09] MEDS: CYCLOBENZAPRINE HCL 10 MG TABLET (FP) PO PRN (21:42)
[2016-12-10] MEDS ORDERED: METHADONE HCL 5 MG TABLET ONE (03:29)
[2016-12-10] MEDS ORDERED: METHADONE HCL 40 MG DISPERSABLE TABLET ONE (03:30)
[2016-12-10] MEDS: METHADONE 80 MG, METHADONE 5 MG PO SCH (06:19)
[2016-12-10] MEDS: NICOTINE POLACRILEX 4 MG GUM BUC PRN ×5 (06:20→21:33)
[2016-12-10] MEDS: PRENATAL VITAMINS W/ FOLIC ACID TABLET (FP) PO SCH (10:17)
[2016-12-10] MEDS: NICOTINE 21 MG/24 HOURS TOPICAL PATCH TD SCH (10:18)
[2016-12-10] MEDS: QUEtiapine FUMARATE 100 MG TABLET (FP) PO SCH (21:32)
[2016-12-10] MEDS: THIAMINE HCL 100 MG TABLET (FP) PO SCH (21:32)
[2016-12-10] MEDS: CYCLOBENZAPRINE HCL 10 MG TABLET (FP) PO PRN (21:33)
[2016-12-11] MEDS ORDERED: METHADONE HCL 5 MG TABLET ONE (05:49)
[2016-12-11] MEDS ORDERED: METHADONE HCL 40 MG DISPERSABLE TABLET ONE (05:49)
[2016-12-11] MEDS ORDERED: METHADONE HCL 40 MG DISPERSABLE TABLET PO SCH (06:00)
[2016-12-11] MEDS: METHADONE 80 MG, METHADONE 5 MG PO SCH (06:36)
[2016-12-11] MEDS: NICOTINE POLACRILEX 4 MG GUM BUC PRN ×4 (06:38→21:50)
[2016-12-11] MEDS: NICOTINE 21 MG/24 HOURS TOPICAL PATCH TD SCH (10:12)
[2016-12-11] MEDS: CYCLOBENZAPRINE HCL 10 MG TABLET (FP) PO PRN ×2 (10:14→21:50)
[2016-12-11] MEDS: PRENATAL VITAMINS W/ FOLIC ACID TABLET (FP) PO SCH (10:57)
[2016-12-11] MEDS: THIAMINE HCL 100 MG TABLET (FP) PO SCH (21:48)
[2016-12-11] MEDS: QUEtiapine FUMARATE 100 MG TABLET (FP) PO SCH (21:49)
[2016-12-12] MEDS ORDERED: METHADONE HCL 5 MG TABLET ONE (03:26)
[2016-12-12] MEDS ORDERED: METHADONE HCL 40 MG DISPERSABLE TABLET ONE (03:26)
[2016-12-12] MEDS: METHADONE 80 MG, METHADONE 5 MG PO SCH (06:19)
[2016-12-12] MEDS: NICOTINE POLACRILEX 4 MG GUM BUC PRN ×5 (06:20→21:45)
[2016-12-12] MEDS: NICOTINE 21 MG/24 HOURS TOPICAL PATCH TD SCH (10:02)
[2016-12-12] MEDS: PRENATAL VITAMINS W/ FOLIC ACID TABLET (FP) PO SCH (10:02)
[2016-12-12] MEDS: MAGNESIUM HYDROX 2400MG/30ML ORAL SUSPENSION 30 ML CUP PO PRN (19:13)
[2016-12-12] MEDS: THIAMINE HCL 100 MG TABLET (FP) PO SCH (21:45)
[2016-12-12] MEDS: QUEtiapine FUMARATE 100 MG TABLET (FP) PO SCH (21:45)
[2016-12-12] MEDS: CYCLOBENZAPRINE HCL 10 MG TABLET (FP) PO PRN (21:46)
[2016-12-13] MEDS ORDERED: METHADONE HCL 5 MG TABLET ONE (04:25)
[2016-12-13] MEDS ORDERED: METHADONE HCL 40 MG DISPERSABLE TABLET ONE (04:25)
[2016-12-13] MEDS: METHADONE 80 MG, METHADONE 5 MG PO SCH (06:28)
[2016-12-13] MEDS: NICOTINE POLACRILEX 4 MG GUM BUC PRN ×5 (06:29→21:45)
[2016-12-13] MEDS: NICOTINE 21 MG/24 HOURS TOPICAL PATCH TD SCH (10:28)
[2016-12-13] MEDS: PRENATAL VITAMINS W/ FOLIC ACID TABLET (FP) PO SCH (10:28)
[2016-12-13] MEDS: QUEtiapine FUMARATE 100 MG TABLET (FP) PO SCH (21:44)
[2016-12-13] MEDS: THIAMINE HCL 100 MG TABLET (FP) PO SCH (21:44)
[2016-12-13] MEDS: CYCLOBENZAPRINE HCL 10 MG TABLET (FP) PO PRN (21:46)
[2016-12-14] MEDS ORDERED: METHADONE HCL 5 MG TABLET ONE (03:46)
[2016-12-14] MEDS ORDERED: METHADONE HCL 40 MG DISPERSABLE TABLET ONE (03:46)
[2016-12-14] MEDS: METHADONE 80 MG, METHADONE 5 MG PO SCH (06:13)
[2016-12-14] MEDS: NICOTINE POLACRILEX 4 MG GUM BUC PRN ×4 (06:15→21:35)
[2016-12-14] MEDS: NICOTINE 21 MG/24 HOURS TOPICAL PATCH TD SCH (10:26)
[2016-12-14] MEDS: PRENATAL VITAMINS W/ FOLIC ACID TABLET (FP) PO SCH (10:26)
[2016-12-14] MEDS: CYCLOBENZAPRINE HCL 10 MG TABLET (FP) PO PRN (21:35)
[2016-12-14] MEDS: QUEtiapine FUMARATE 100 MG TABLET (FP) PO SCH (21:35)
[2016-12-14] MEDS: THIAMINE HCL 100 MG TABLET (FP) PO SCH (21:35)
[2016-12-15] MEDS ORDERED: METHADONE HCL 5 MG TABLET ONE (03:24)
[2016-12-15] MEDS ORDERED: METHADONE HCL 40 MG DISPERSABLE TABLET ONE (03:25)
[2016-12-15] MEDS: METHADONE 80 MG, METHADONE 5 MG PO SCH (06:05)
[2016-12-15] MEDS: NICOTINE POLACRILEX 4 MG GUM BUC PRN ×5 (06:05→21:42)
[2016-12-15] MEDS: PRENATAL VITAMINS W/ FOLIC ACID TABLET (FP) PO SCH (10:34)
[2016-12-15] MEDS: NICOTINE 21 MG/24 HOURS TOPICAL PATCH TD SCH (10:34)
[2016-12-15] MEDS: QUEtiapine FUMARATE 100 MG TABLET (FP) PO SCH (21:42)
[2016-12-15] MEDS: THIAMINE HCL 100 MG TABLET (FP) PO SCH (21:42)
[2016-12-16] MEDS ORDERED: METHADONE HCL 40 MG DISPERSABLE TABLET ONE (03:14)
[2016-12-16] MEDS ORDERED: METHADONE HCL 5 MG TABLET ONE (03:14)
[2016-12-16] MEDS: NICOTINE POLACRILEX 4 MG GUM BUC PRN ×4 (06:05→21:41)
[2016-12-16] MEDS: METHADONE 80 MG, METHADONE 5 MG PO SCH (06:05)
[2016-12-16] MEDS: NICOTINE 21 MG/24 HOURS TOPICAL PATCH TD SCH (10:21)
[2016-12-16] MEDS: PRENATAL VITAMINS W/ FOLIC ACID TABLET (FP) PO SCH (10:21)
[2016-12-16] MEDS: QUEtiapine FUMARATE 100 MG TABLET (FP) PO SCH (21:40)
[2016-12-16] MEDS: THIAMINE HCL 100 MG TABLET (FP) PO SCH (21:40)
[2016-12-16] MEDS: CYCLOBENZAPRINE HCL 10 MG TABLET (FP) PO PRN (21:40)
[2016-12-17] MEDS ORDERED: METHADONE HCL 5 MG TABLET ONE (03:26)
[2016-12-17] MEDS ORDERED: METHADONE HCL 40 MG DISPERSABLE TABLET ONE (03:27)
[2016-12-17] MEDS: METHADONE 80 MG, METHADONE 5 MG PO SCH (06:10)
[2016-12-17] MEDS: NICOTINE POLACRILEX 4 MG GUM BUC PRN ×4 (06:11→17:19)
[2016-12-17] MEDS: PRENATAL VITAMINS W/ FOLIC ACID TABLET (FP) PO SCH (10:21)
[2016-12-17] MEDS: NICOTINE 21 MG/24 HOURS TOPICAL PATCH TD SCH (10:22)
[2016-12-17] MEDS: QUEtiapine FUMARATE 100 MG TABLET (FP) PO SCH (21:41)
[2016-12-17] MEDS: CYCLOBENZAPRINE HCL 10 MG TABLET (FP) PO PRN (21:42)
[2016-12-17] MEDS: THIAMINE HCL 100 MG TABLET (FP) PO SCH (21:42)
[2016-12-18] MEDS ORDERED: METHADONE HCL 5 MG TABLET ONE (06:03)
[2016-12-18] MEDS ORDERED: METHADONE HCL 40 MG DISPERSABLE TABLET ONE (06:03)
[2016-12-18] MEDS: METHADONE 80 MG, METHADONE 5 MG PO SCH (06:05)
[2016-12-18] MEDS: NICOTINE POLACRILEX 4 MG GUM BUC PRN ×5 (06:05→21:41)
[2016-12-18] MEDS: CYCLOBENZAPRINE HCL 10 MG TABLET (FP) PO PRN ×2 (10:39→21:40)
[2016-12-18] MEDS: PRENATAL VITAMINS W/ FOLIC ACID TABLET (FP) PO SCH (10:39)
[2016-12-18] MEDS: hydrOXYzine PAMOATE 50 MG CAPSULE (FP) PO PRN (10:39)
[2016-12-18] MEDS: NICOTINE 21 MG/24 HOURS TOPICAL PATCH TD SCH (10:40)
[2016-12-18] MEDS: QUEtiapine FUMARATE 100 MG TABLET (FP) PO SCH (21:40)
[2016-12-18] MEDS: THIAMINE HCL 100 MG TABLET (FP) PO SCH (21:40)
[2016-12-19] MEDS ORDERED: METHADONE HCL 5 MG TABLET ONE (03:23)
[2016-12-19] MEDS ORDERED: METHADONE HCL 40 MG DISPERSABLE TABLET ONE (03:24)
[2016-12-19] MEDS: NICOTINE POLACRILEX 4 MG GUM BUC PRN ×6 (05:59→21:44)
[2016-12-19] MEDS: METHADONE 80 MG, METHADONE 5 MG PO SCH (05:59)
[2016-12-19] MEDS: hydrOXYzine PAMOATE 50 MG CAPSULE (FP) PO PRN (10:13)
[2016-12-19] MEDS: PRENATAL VITAMINS W/ FOLIC ACID TABLET (FP) PO SCH (10:13)
[2016-12-19] MEDS: NICOTINE 21 MG/24 HOURS TOPICAL PATCH TD SCH (10:13)
[2016-12-19] MEDS: CYCLOBENZAPRINE HCL 10 MG TABLET (FP) PO PRN ×2 (10:13→21:43)
[2016-12-19] MEDS: QUEtiapine FUMARATE 100 MG TABLET (FP) PO SCH (21:43)
[2016-12-19] MEDS: THIAMINE HCL 100 MG TABLET (FP) PO SCH (21:43)
[2016-12-20] MEDS ORDERED: METHADONE HCL 5 MG TABLET ONE (03:21)
[2016-12-20] MEDS ORDERED: METHADONE HCL 40 MG DISPERSABLE TABLET ONE (03:22)
[2016-12-20] MEDS: NICOTINE POLACRILEX 4 MG GUM BUC PRN ×3 (06:17→21:35)
[2016-12-20] MEDS: METHADONE 80 MG, METHADONE 5 MG PO SCH (06:17)
[2016-12-20] MEDS: PRENATAL VITAMINS W/ FOLIC ACID TABLET (FP) PO SCH (10:33)
[2016-12-20] MEDS: NICOTINE 21 MG/24 HOURS TOPICAL PATCH TD SCH (10:33)
[2016-12-20] MEDS: hydrOXYzine PAMOATE 50 MG CAPSULE (FP) PO PRN (10:34)
[2016-12-20] MEDS: CYCLOBENZAPRINE HCL 10 MG TABLET (FP) PO PRN ×2 (10:34→21:35)
[2016-12-20] MEDS: THIAMINE HCL 100 MG TABLET (FP) PO SCH (21:34)
[2016-12-20] MEDS: QUEtiapine FUMARATE 100 MG TABLET (FP) PO SCH (21:34)
[2016-12-21] MEDS ORDERED: METHADONE HCL 5 MG TABLET ONE (03:16)
[2016-12-21] MEDS ORDERED: METHADONE HCL 40 MG DISPERSABLE TABLET ONE (03:17)
[2016-12-21] MEDS: METHADONE 80 MG, METHADONE 5 MG PO SCH (06:17)
[2016-12-21] MEDS: NICOTINE POLACRILEX 4 MG GUM BUC PRN ×3 (06:18→19:44)
[2016-12-21] MEDS: PRENATAL VITAMINS W/ FOLIC ACID TABLET (FP) PO SCH (10:30)
[2016-12-21] MEDS: NICOTINE 21 MG/24 HOURS TOPICAL PATCH TD SCH (10:30)
[2016-12-21] MEDS: hydrOXYzine PAMOATE 50 MG CAPSULE (FP) PO PRN (10:30)
[2016-12-21] MEDS: CYCLOBENZAPRINE HCL 10 MG TABLET (FP) PO PRN ×2 (10:30→21:35)
[2016-12-21] MEDS: THIAMINE HCL 100 MG TABLET (FP) PO SCH (21:35)
[2016-12-21] MEDS: QUEtiapine FUMARATE 100 MG TABLET (FP) PO SCH (21:35)
[2016-12-22] MEDS ORDERED: METHADONE HCL 5 MG TABLET ONE (05:02)
[2016-12-22] MEDS ORDERED: METHADONE HCL 40 MG DISPERSABLE TABLET ONE (05:03)
[2016-12-22] MEDS: METHADONE 80 MG, METHADONE 5 MG PO SCH (05:48)
[2016-12-22] MEDS: NICOTINE POLACRILEX 4 MG GUM BUC PRN ×4 (05:49→22:01)
[2016-12-22] MEDS: CYCLOBENZAPRINE HCL 10 MG TABLET (FP) PO PRN ×2 (10:43→22:00)
[2016-12-22] MEDS: NICOTINE 21 MG/24 HOURS TOPICAL PATCH TD SCH (10:43)
[2016-12-22] MEDS: PRENATAL VITAMINS W/ FOLIC ACID TABLET (FP) PO SCH (10:43)
[2016-12-22] MEDS: hydrOXYzine PAMOATE 50 MG CAPSULE (FP) PO PRN (10:43)
[2016-12-22] MEDS ORDERED: POLYETHYLENE GLYCOL 3350 119 GM BTL PO ONE (13:28)
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
[2016-12-22] MEDS: THIAMINE HCL 100 MG TABLET (FP) PO SCH (21:59)
[2016-12-22] MEDS: QUEtiapine FUMARATE 200 MG TABLET PO SCH (21:59)
[2016-12-23] MEDS ORDERED: METHADONE HCL 40 MG DISPERSABLE TABLET ONE (03:15)
[2016-12-23] MEDS ORDERED: METHADONE HCL 5 MG TABLET ONE (03:15)
[2016-12-23] MEDS: METHADONE 80 MG, METHADONE 5 MG PO SCH (05:36)
[2016-12-23] MEDS: NICOTINE POLACRILEX 4 MG GUM BUC PRN ×4 (05:37→21:32)
[2016-12-23] MEDS: PRENATAL VITAMINS W/ FOLIC ACID TABLET (FP) PO SCH (10:22)
[2016-12-23] MEDS: NICOTINE 21 MG/24 HOURS TOPICAL PATCH TD SCH (10:22)
[2016-12-23] MEDS: POLYETHYLENE GLYCOL 3350 119 GM BTL PO SCH (10:23)
[2016-12-23] MEDS: hydrOXYzine PAMOATE 50 MG CAPSULE (FP) PO PRN (10:24)
[2016-12-23] MEDS: MAGNESIUM HYDROX 2400MG/30ML ORAL SUSPENSION 30 ML CUP PO PRN (14:59)
[2016-12-23] MEDS: THIAMINE HCL 100 MG TABLET (FP) PO SCH (21:31)
[2016-12-23] MEDS: QUEtiapine FUMARATE 200 MG TABLET PO SCH (21:31)
[2016-12-23] MEDS: CYCLOBENZAPRINE HCL 10 MG TABLET (FP) PO PRN (21:32)
[2016-12-24] MEDS ORDERED: METHADONE HCL 5 MG TABLET ONE (03:36)
[2016-12-24] MEDS ORDERED: METHADONE HCL 40 MG DISPERSABLE TABLET ONE (03:36)
[2016-12-24] MEDS: METHADONE 80 MG, METHADONE 5 MG PO SCH (06:03)
[2016-12-24] MEDS: NICOTINE POLACRILEX 4 MG GUM BUC PRN ×4 (06:04→21:32)
[2016-12-24] MEDS: PRENATAL VITAMINS W/ FOLIC ACID TABLET (FP) PO SCH (10:28)
[2016-12-24] MEDS: CYCLOBENZAPRINE HCL 10 MG TABLET (FP) PO PRN ×2 (10:28→21:32)
[2016-12-24] MEDS: hydrOXYzine PAMOATE 50 MG CAPSULE (FP) PO PRN (10:28)
[2016-12-24] MEDS: NICOTINE 21 MG/24 HOURS TOPICAL PATCH TD SCH (10:28)
[2016-12-24] MEDS: MAGNESIUM HYDROX 2400MG/30ML ORAL SUSPENSION 30 ML CUP PO PRN (10:29)
[2016-12-24] MEDS: POLYETHYLENE GLYCOL 3350 119 GM BTL PO SCH (10:29)
[2016-12-24] MEDS: THIAMINE HCL 100 MG TABLET (FP) PO SCH (21:31)
[2016-12-24] MEDS: QUEtiapine FUMARATE 200 MG TABLET PO SCH (21:31)
[2016-12-25] MEDS ORDERED: METHADONE HCL 40 MG DISPERSABLE TABLET ONE (06:02)
[2016-12-25] MEDS ORDERED: METHADONE HCL 5 MG TABLET ONE (06:02)
[2016-12-25] MEDS: METHADONE 80 MG, METHADONE 5 MG PO SCH (06:04)
[2016-12-25] MEDS: NICOTINE POLACRILEX 4 MG GUM BUC PRN ×3 (06:04→21:41)
[2016-12-25] MEDS: hydrOXYzine PAMOATE 50 MG CAPSULE (FP) PO PRN (10:34)
[2016-12-25] MEDS: PRENATAL VITAMINS W/ FOLIC ACID TABLET (FP) PO SCH (10:34)
[2016-12-25] MEDS: NICOTINE 21 MG/24 HOURS TOPICAL PATCH TD SCH (10:34)
[2016-12-25] MEDS: POLYETHYLENE GLYCOL 3350 119 GM BTL PO SCH (10:35)
[2016-12-25] MEDS: CYCLOBENZAPRINE HCL 10 MG TABLET (FP) PO PRN ×2 (10:35→21:40)
[2016-12-25] MEDS: QUEtiapine FUMARATE 200 MG TABLET PO SCH (21:39)
[2016-12-25] MEDS: THIAMINE HCL 100 MG TABLET (FP) PO SCH (21:39)
[2016-12-26] MEDS ORDERED: METHADONE HCL 5 MG TABLET ONE (03:29)
[2016-12-26] MEDS ORDERED: METHADONE HCL 40 MG DISPERSABLE TABLET ONE (03:30)
[2016-12-26] MEDS: METHADONE 80 MG, METHADONE 5 MG PO SCH (06:07)
[2016-12-26] MEDS: NICOTINE POLACRILEX 4 MG GUM BUC PRN ×5 (06:08→21:42)
[2016-12-26] MEDS: POLYETHYLENE GLYCOL 3350 119 GM BTL PO SCH (10:19)
[2016-12-26] MEDS: NICOTINE 21 MG/24 HOURS TOPICAL PATCH TD SCH (10:20)
[2016-12-26] MEDS: hydrOXYzine PAMOATE 50 MG CAPSULE (FP) PO PRN ×2 (10:21→21:42)
[2016-12-26] MEDS: PRENATAL VITAMINS W/ FOLIC ACID TABLET (FP) PO SCH (10:21)
[2016-12-26] MEDS: THIAMINE HCL 100 MG TABLET (FP) PO SCH (21:41)
[2016-12-26] MEDS: QUEtiapine FUMARATE 200 MG TABLET PO SCH (21:41)
[2016-12-26] MEDS: CYCLOBENZAPRINE HCL 10 MG TABLET (FP) PO PRN (21:42)
[2016-12-27] MEDS ORDERED: METHADONE HCL 40 MG DISPERSABLE TABLET ONE (03:11)
[2016-12-27] MEDS ORDERED: METHADONE HCL 5 MG TABLET ONE (03:11)
[2016-12-27] MEDS: METHADONE 80 MG, METHADONE 5 MG PO SCH (06:04)
[2016-12-27] MEDS: NICOTINE POLACRILEX 4 MG GUM BUC PRN ×3 (06:05→21:45)
[2016-12-27] MEDS: PRENATAL VITAMINS W/ FOLIC ACID TABLET (FP) PO SCH (10:11)
[2016-12-27] MEDS: NICOTINE 21 MG/24 HOURS TOPICAL PATCH TD SCH (10:11)
[2016-12-27] MEDS: CYCLOBENZAPRINE HCL 10 MG TABLET (FP) PO PRN ×2 (10:14→21:44)
[2016-12-27] MEDS: hydrOXYzine PAMOATE 50 MG CAPSULE (FP) PO PRN (10:14)
[2016-12-27] MEDS: POLYETHYLENE GLYCOL 3350 119 GM BTL PO SCH (10:15)
[2016-12-27] MEDS: THIAMINE HCL 100 MG TABLET (FP) PO SCH (21:43)
[2016-12-27] MEDS: QUEtiapine FUMARATE 200 MG TABLET PO SCH (21:43)
[2016-12-28] MEDS ORDERED: METHADONE HCL 40 MG DISPERSABLE TABLET ONE (03:11)
[2016-12-28] MEDS ORDERED: METHADONE HCL 5 MG TABLET ONE (03:11)
[2016-12-28] MEDS: METHADONE 80 MG, METHADONE 5 MG PO SCH (05:49)
[2016-12-28] MEDS: CYCLOBENZAPRINE HCL 10 MG TABLET (FP) PO PRN ×2 (10:23→21:44)
[2016-12-28] MEDS: NICOTINE 21 MG/24 HOURS TOPICAL PATCH TD SCH (10:23)
[2016-12-28] MEDS: hydrOXYzine PAMOATE 50 MG CAPSULE (FP) PO PRN (10:23)
[2016-12-28] MEDS: PRENATAL VITAMINS W/ FOLIC ACID TABLET (FP) PO SCH (10:23)
[2016-12-28] MEDS: POLYETHYLENE GLYCOL 3350 119 GM BTL PO SCH (10:24)
[2016-12-28] MEDS: NICOTINE POLACRILEX 4 MG GUM BUC PRN ×2 (10:26→21:45)
[2016-12-28] MEDS: THIAMINE HCL 100 MG TABLET (FP) PO SCH (21:44)
[2016-12-28] MEDS: QUEtiapine FUMARATE 200 MG TABLET PO SCH (21:44)
[2016-12-29] MEDS ORDERED: METHADONE HCL 5 MG TABLET ONE (03:18)
[2016-12-29] MEDS ORDERED: METHADONE HCL 40 MG DISPERSABLE TABLET ONE (03:19)
[2016-12-29] MEDS: METHADONE 80 MG, METHADONE 5 MG PO SCH (06:12)
[2016-12-29] MEDS: NICOTINE POLACRILEX 4 MG GUM BUC PRN (06:14)
[2016-12-29 07:04] VITALS: BP 121/53; PULSE 85; TEMP 97.2
--- NOTE | 2016-12-29 08:22 | PN ---
Psychiatric Progress Note Vital Signs: Vital Signs Period Temp Pulse Resp BP Sys/Carrillo Pulse Ox Last 24 Hr 97.2 F 85 16-16 121/53 Date of Session: 12/29/16 Chief Complaint:: Discharge visit HPI: Patient addressed Alcohol,Cocaine,Opioid and Anxiolytic dependence comorbid with Substance induced mood disorder. ROS: S/P Cellulitis of R arm. Current Medications: Active Medications Generic Name Dose Route Start Last Admin Trade Name Freq PRN Reason Stop Dose Admin Acetaminophen 650 mg 12/04/16 13:08 Tylenol - PO Q4H PRN FEVER OR PAIN Al Hydroxide/Mg Hydroxide 30 ml 12/04/16 13:08 Mylanta Oral Suspension - PO Q6H PRN DYSPEPSIA Cyclobenzaprine HCl 10 mg 12/04/16 15:25 12/28/16 21:44 Flexeril - PO 10 mg TID PRN Administration MUSCLE SPASMS Diphenhydramine HCl 50 mg 12/04/16 13:08 Benadryl - PO HSMR1 PRN FOR ITCHING Eucalyptus/Menthol/Phenol/Sorbitol 1 each 12/04/16 13:08 Cepastat Lozenge - MM Q4H PRN SORE THROAT Guaifenesin 10 ml 12/04/16 13:08 Robitussin Dm - PO Q6H PRN COUGH Hydroxyzine Pamoate 50 mg 12/04/16 14:59 12/28/16 10:23 Vistaril - PO 50 mg Q4H PRN Administration ANXIETY Ibuprofen 400 mg 12/04/16 13:08 Motrin - PO Q6H PRN PAIN Loperamide HCl 4 mg 12/04/16 13:08 Imodium - PO Q6H PRN DIARRHEA Magnesium Hydroxide 30 ml 12/04/16 13:08 12/24/16 10:29 Milk Of Magnesia - PO 30 ml DAILY PRN Administration CONSTIPATION Methadone HCl 80 mg/ Methadone 85 mg 12/25/16 06:00 12/29/16 06:12 HCl 5 mg PO 12/31/16 05:59 85 mg DAILY@0600 DEREK Administration Nicotine 21 mg 12/05/16 10:00 12/28/16 10:23 Nicoderm Patch - TD 21 mg DAILY DEREK Administration Nicotine Polacrilex 4 mg 12/05/16 03:42 12/29/16 06:14 Nicorette Gum - BUC 4 mg Q2H PRN Administration NICOTINE REPLACEMENT RX Polyethylene Glycol 17 gm 12/23/16 10:00 12/28/16 10:24 Miralax (For Daily Use) - PO 17 gm DAILY DEREK Administration Multivit/Folic Acid/Iron 1 tab 12/05/16 10:00 12/28/16 10:23 Vitamins (Sjr) - PO 1 tab DAILY DEREK Administration Pseudoephedrine/Triprolidine 1 combo 12/04/16 13:08 Actifed - PO TID PRN NASAL CONGESTION Quetiapine Fumarate 200 mg 12/22/16 22:00 12/28/16 21:44 Seroquel - PO 200 mg HS DEREK Administration Thiamine HCl 100 mg 12/04/16 22:00 12/28/16 21:44 Vitamin B1 - PO 100 mg HS DEREK Administration Current Side Effect: No Lab tests ordered: No Lab tests reviewed: Yes Provider note:: Patient completed this program today.he has met his treatment goals and will continue to address his issues on outpatient basis at halfway facility with [facility].He continues to find that Seroquel 200 mg po hs help to reduce mood instability,sleeping difficulties.script for 30 days provided. Supportive therapy provided focusing on relapse prevention,coping skills, support utilization tpo maintain recovery. Patient is stable for discharge today. Total face to face time:: 30 Mental Status Exam - Mental Status Exam Alert and Oriented to: Time, Place, Person Cognitive Function: Grossly Intact Patient Appearance: Well Groomed Mood: Euthymic Affect: Appropriate Patient Behavior: Cooperative Speech Pattern: Aphasic Voice Loudness: Normal Thought Process: Goal Oriented Thought Disorder: Not Present Hallucinations: Denies Suicidal Ideation: Denies Homicidal Ideation: Denies Insight/Judgement: Fair Sleep: Fair Appetite: Good Muscle strength/Tone: Normal Gait/Station: Normal Psychiatric Treatment Plan - Problem List (1) Cellulitis of right arm Current Visit: Yes Comment: related to injection drug use - will order warm pack and keflex (2) Cocaine dependence Current Visit: Yes Qualifiers: Substance use status: uncomplicated Qualified Code(s): F14.20 - Cocaine dependence, uncomplicated (3) Drug-induced mood disorder Current Visit: Yes (4) Nicotine dependence Current Visit: Yes Qualifiers: Nicotine product type: cigarettes Substance use status: uncomplicated Qualified Code(s): F17.210 - Nicotine dependence, cigarettes, uncomplicated (5) Opioid dependence on agonist therapy Current Visit: Yes (6) Sedative hypnotic or anxiolytic dependence Current Visit: Yes
[2016-12-29] MEDS: POLYETHYLENE GLYCOL 3350 119 GM BTL PO SCH (09:54)
[2016-12-29] MEDS: NICOTINE 21 MG/24 HOURS TOPICAL PATCH TD SCH (09:56)
[2016-12-29] MEDS: PRENATAL VITAMINS W/ FOLIC ACID TABLET (FP) PO SCH (09:56)
== END 2016-12-29 10:50 | disposition home or self-care (01) | DRG 772 ==
LOC: YASAS 12:36 → Y5N 12:37
PROVIDERS: ADMIT Psychiatry & Neurology Psychiatry; ATTEND Psychiatry & Neurology Psychiatry
PROC: HZ42ZZZ Group Counseling for Substance Abuse Treatment, Cognitive-Behavioral (ICD-10-PCS; principal; 2016-12-04)
DX: F13.20 Sedative, hypnotic or anxiolytic dependence, uncomplicated (principal); F11.20 Opioid dependence, uncomplicated; F10.20 Alcohol dependence, uncomplicated; F14.20 Cocaine dependence, uncomplicated; F17.210 Nicotine dependence, cigarettes, uncomplicated; F19.24 Other psychoactive substance dependence with psychoactive substance-induced mood disorder; F19.280 Other psychoactive substance dependence with psychoactive substance-induced anxiety disorder; F19.282 Other psychoactive substance dependence with psychoactive substance-induced sleep disorder; F90.9 Attention-deficit hyperactivity disorder, unspecified type; L03.113 Cellulitis of right upper limb; Z63.4 Disappearance and death of family member
CPT/HCPCS: 36415; 87389

== ENCOUNTER 2018-01-11 13:43 | Inpatient (IN) | payer OTHER ==
[2018-01-11 16:29] VITALS: BMI 23.4
--- NOTE | 2018-01-11 17:55 | HP ---
CIWA Score - CIWA Score Nausea/Vomitin-Mild Nausea/No Vomiting Muscle Tremors: 2 Anxiety: 1-Mildly Anxious Agitation: 1-Slight > Activity Paroxysmal Sweats: 3 Orientation: 0-Oriented Tacttile Disturbances: 0-None Auditory Disturbances: 0-None Visual Disturbances: 0-None Headache: 0-None Present CIWA-Ar Total Score: 8 Admission ROS S - HPI Chief Complaint: withdrawal symptoms Allergies/Adverse Reactions: Allergies Allergy/AdvReac Type Severity Reaction Status Date / Time No Known Allergies Allergy Verified 01/11/18 16:57 History of Present Illness: 27yo male with hx of nicotine ( 2 PPD), xanax, cocaine and alcohol dependence is here seeking detox. Linked to [facility] at [facility] on methadone 160mg, last medicated today. PMHX: anxiety, depression, ADHD. Denies suicidal / homicidal ideation. Denies hx of hx of seizures, last seizures 2011 from benzo and alcohol withdrawal. Last detox [facility] a month ago, d/c 12/06/17. Longest period of sobriety 2 years. Exam Limitations: No Limitations - Ebola screening Have you traveled outside of the country in the last 21 days: No Have you had contact with anyone from an Ebola affected area: No Have you been sick,other than usual withdrawal symptoms: No - Review of Systems Constitutional: Chills, Diaphoresis, Loss of Appetite, Unintentional Wgt. Loss ( 30 lbs) EENT: reports: No Symptoms Reported Respiratory: reports: No Symptoms reported Cardiac: reports: No Symptoms Reported GI: reports: No Symptoms Reported, Nausea, Poor Appetite, Poor Fluid Intake : reports: No Symptoms Reported Musculoskeletal: reports: Back Pain (low back pain) Integumentary: reports: No Symptoms Reported Neuro: reports: See HPI Endocrine: reports: Increased Thirst Hematology: reports: No Symptoms Reported Psychiatric: reports: Orientated x3, Anxious Other Systems: Reviewed and Negative Patient History - Patient Medical History Hx Anemia: No Hx Asthma: No Hx Chronic Obstructive Pulmonary Disease (COPD): No Hx Cancer: No Hx Cardiac Disorders: No Hx Congestive Heart Failure: No Hx Hypertension: No Hx Hypercholesterolemia: No Hx Pacemaker: No HX Cerebrovascular Accident: No Hx Seizures: Yes (Last episode 2011) Hx Dementia: No Hx Diabetes: No Hx Gastrointestinal Disorders: No Hx Liver Disease: No Hx Genitourinary Disorders: No Hx Sexually Transmitted Disorders: No Hx Renal Disease (ESRD): No Hx Thyroid Disease: No Hx Human Immunodeficiency Virus (HIV): No (Last tested a week ago ) Hx Hepatitis C: Yes (Dx 2 weeks Pending tx ) Hx Depression: Yes Hx Suicide Attempt: No Hx Bipolar Disorder: No Hx Schizophrenia: No - Patient Surgical History Past Surgical History: No Hx Neurologic Surgery: No Hx Cataract Extraction: No Hx Cardiac Surgery: No Hx Lung Surgery: No Hx Breast Surgery: No Hx Breast Biopsy: No Hx Abdominal Surgery: No Hx Appendectomy: No Hx Cholecystectomy: No Hx Genitourinary Surgery: No Hx Section: (N/A) Hx Orthopedic Surgery: No Anesthesia Reaction: (N/A) - PPD History Previous Implant?: Yes Documented Results: Negative w/proof Date: 12/01/16 Results: 0mm PPD to be Administered?: Yes - Reproductive History Patient is a Female of Child Bearing Age (11 -55 yrs old): No - Smoking Cessation Smoking history: Current every day smoker Have you smoked in the past 12 months: Yes Aproximately how many cigarettes per day: 40 Hx Chewing Tobacco Use: No (DAILY) Initiated information on smoking cessation: Yes 'Breaking Loose' booklet given: 01/11/18 - Substance & Tx. History Hx Alcohol Use: Yes Hx Substance Use: Yes Substance Use Type: Alcohol, Tranquilizers Hx Substance Use Treatment: Yes ([facility] One month ago d/C 12/06/17) - Substances Abused Alcohol Route: Oral Frequency: Daily Amount used: liquor- 2 pints, beer- 2 six pack Age of first use: 13 Date of Last Use: 01/11/18 Alprazolam (Xanax) Route: Oral Frequency: Daily Amount used: 8mg Age of first use: 16 Date of Last Use: 01/10/18 Cocaine Route: Injection Frequency: Daily Amount used: 3 bags Age of first use: 16 Date of Last Use: 01/10/18 Family Disease History - Family Disease History Family Disease History: Other: Father (alive, incarcerated - ), Mother ( ) Admission Physical Exam BHS - Vital Signs Vital Signs: Vital Signs - 24 hr 01/11/18 16:26 Temperature 98.1 F Pulse Rate 55 L Respiratory 18 Rate Blood Pressure 119/76 - Physical General Appearance: Yes: Appropriately Dressed, Sweating, Anxious HEENTM: Yes: EOMI, Hearing grossly Normal, Normal ENT Inspection, Normocephalic , Normal Voice, CAROLYN, Pharynx Normal, Tm's normal Respiratory: Yes: Chest Non-Tender, Lungs Clear, Normal Breath Sounds, No Respiratory Distress, No Accessory Muscle Use Neck: Yes: Within Normal Limits Breast: Yes: Breast Exam Deferred Cardiology: Yes: Regular Rhythm, Regular Rate Abdominal: Yes: Normal Bowel Sounds, Non Tender, Flat, Soft Genitourinary: Yes: Within Normal Limits Back: Yes: Normal Inspection Musculoskeletal: Yes: full range of Motion, Gait Steady, Pelvis Stable Extremities: Yes: Normal Capillary Refill, Normal Inspection, Normal Range of Motion, Non-Tender Neurological: Yes: Depressed Affect Lymphatic: Yes: Within Normal Limits - Diagnostic (1) Hepatitis C Current Visit: Yes Status: Acute (2) Cocaine dependence Current Visit: No Status: Acute Qualifiers: Substance use status: uncomplicated Qualified Code(s): F14.20 - Cocaine dependence, uncomplicated (3) Nicotine dependence Current Visit: No Status: Acute Qualifiers: Nicotine product type: cigarettes Substance use status: uncomplicated Qualified Code(s): F17.210 - Nicotine dependence, cigarettes, uncomplicated (4) Opioid dependence on agonist therapy Current Visit: No Status: Acute (5) Sedative hypnotic or anxiolytic dependence Current Visit: No Status: Acute (6) ADHD (attention deficit hyperactivity disorder) Current Visit: No Status: Chronic (7) Alcohol dependence with uncomplicated withdrawal Current Visit: No Status: Chronic Cleared for Admission [facility] - Detox or Rehab [facility] Level of Care: Medically Supervised Detox Regimen/Protocol: [facility] Breath Alcohol Content Breath Alcohol Content: 0.010 Urine Drug Screen - Results Drug Screen Negative: No Urine Drug Screen Results: THC-Marijuana, LUIS-Cocaine, BZO-Benzodiazepines, MTD- Methadone
[2018-01-11] MEDS ORDERED: LOPERAMIDE HCL 2 MG CAPSULE PO PRN (18:06)
[2018-01-11] MEDS ORDERED: MAGNESIUM HYDROX 2400MG/30ML ORAL SUSPENSION 30 ML CUP PO PRN (18:06)
[2018-01-11] MEDS ORDERED: MENTHOL/PHENOL 1 EACH UD MM PRN (18:06)
[2018-01-11] MEDS ORDERED: P-EPHED 60MG/TRIPROLIDI 2.5MG TABLET PO PRN (18:06)
[2018-01-11] MEDS ORDERED: MAG HYDROX/AL HYDROX/SIMETH 30 ML UNIT-DOSE CUP PO PRN (18:06)
[2018-01-11] MEDS ORDERED: ACETAMINOPHEN 325 MG TABLET (FP) PO PRN (18:06)
[2018-01-11] MEDS ORDERED: guaiFENesin/D-METHORPHAN HB 10 ML UNIT-DOSE CUPS PO PRN (18:06)
[2018-01-11] MEDS ORDERED: MAGNESIUM CITRATE 300 ML BOTTLE PO PRN (18:06)
[2018-01-11] MEDS ORDERED: IBUPROFEN 400 MG TABLET (FP) PO PRN (18:06)
[2018-01-11] MEDS ORDERED: chlordiazePOXIDE HCL 25 MG CAPSULE PO ONE (19:00)
[2018-01-11] MEDS: NICOTINE POLACRILEX 4 MG GUM BC PRN ×2 (20:10→22:13)
[2018-01-11] MEDS: chlordiazePOXIDE HCL 25 MG CAPSULE PO SCH (22:11)
[2018-01-11] MEDS: THIAMINE HCL 100 MG TABLET (FP) PO SCH (22:11)
[2018-01-11] MEDS: MELATONIN 5 MG TABLETS PO PRN (22:12)
[2018-01-12 02:27] LABS: URINE APPEARANCE CLEAR; URINE BILIRUBIN NEGATIVE (<2.0 mg/dL); URINE BLOOD NEGATIVE (NEGATIVE); URINE COLOR LTYELLOW; URINE GLUCOSE (UA) NEGATIVE (NEGATIVE); URINE KETONE NEGATIVE (NEGATIVE); URINE LEUK ESTERASE TRACE (NEGATIVE); URINE NITRITE NEGATIVE (NEGATIVE); URINE PROTEIN NEGATIVE (NEGATIVE); URINE UROBILINOGEN NEGATIVE mg/dL (0.2-1.0)
[2018-01-12 02:53] LABS: EPI CELLS RARE /HPF (FEW)
[2018-01-12] MEDS: chlordiazePOXIDE HCL 25 MG CAPSULE PO SCH ×4 (06:11→22:16)
[2018-01-12] MEDS: NICOTINE POLACRILEX 4 MG GUM BC PRN ×5 (06:12→22:19)
[2018-01-12] MEDS: METHADONE HCL 40 MG DISPERSABLE TABLET PO SCH (07:40)
[2018-01-12] MEDS: hydrOXYzine PAMOATE 50 MG CAPSULE (FP) PO PRN (07:42)
[2018-01-12] MEDS: PRENATAL VITAMINS W/ FOLIC ACID TABLET (FP) PO SCH (10:14)
[2018-01-12] MEDS: NICOTINE 21 MG/24 HOURS TOPICAL PATCH TD SCH (10:14)
[2018-01-12 10:23] LABS: HEMATOCRIT 39.6 % (35.4-49); HEMOGLOBIN 13.6 GM/dL (11.7-16.9); MCH 32.3 pg (25.7-33.7); MCHC 34.3 g/dl (32.0-35.9); MEAN CELL VOLUME 94.1 fl (80-96); MEAN PLT VOLUME 8.3 fl (7.5-11.1); PLATELET COUNT 229 K/MM3 (134-434); RBC 4.21 M/mm3 (4.00-5.60); RDW 13.1 % (11.9-15.9); WHITE BLOOD COUNT 5.1 K/mm3 (4.0-10.0)
[2018-01-12 11:51] LABS: CHLORIDE 101 mmol/L (98-107); POTASSIUM 4.3 mmol/L (3.5-5.1); SODIUM 137 mmol/L (136-145)
[2018-01-12 12:12] LABS: ALBUMIN 3.3 g/dl (3.4-5.0); ALK PHOS 52 U/L (45-117); ANION GAP 7 (8-16); BILIRUBIN,TOTAL 0.3 mg/dL (0.2-1.0); BLOOD UREA NITROGEN 13 mg/dL (7-18); CALCIUM 8.5 mg/dL (8.5-10.1); CO2 29 mmol/L (21-32); CREATININE 0.7 mg/dL (0.7-1.3); GLUCOSE,RANDOM 87 mg/dL (74-106); SGOT/AST 48 U/L (15-37); SGPT/ALT 73 U/L (12-78); TOT PROT 6.6 g/dl (6.4-8.2)
--- NOTE | 2018-01-12 12:22 | PN ---
S CIWA - CIWA Score Nausea/Vomitin-No Nausea/No Vomiting Muscle Tremors: 4-Moderate,w/Arms Extend Anxiety: 4-Mod. Anxious/Guarded Agitation: 4-Moderately Restless Paroxysmal Sweats: 1-Minimal Palms Moist Orientation: 0-Oriented Tacttile Disturbances: 3-Moderate Itch/Numb/Burn Auditory Disturbances: 0-None Visual Disturbances: 0-None Headache: 0-None Present CIWA-Ar Total Score: 16 BHS Progress Note (SOAP) Subjective: ANXIETY,SWEATS,COLD SWEATS,TREMORS,INTERMITTENT SLEEP-TAKES SEROQUEL. Objective: 01/12/18 12:20 Vital Signs 01/12/18 01/12/18 05:47 09:06 Temperature 97.5 F L 96.5 F L Pulse Rate 60 70 Respiratory 16 18 Rate Blood Pressure 114/73 132/72 Laboratory Tests 01/11/18 01/12/18 01/12/18 Unknown 07:30 07:30 WBC 5.1 RBC 4.21 Hgb 13.6 Hct 39.6 MCV 94.1 MCH 32.3 MCHC 34.3 RDW 13.1 Plt Count 229 MPV 8.3 Sodium 137 Potassium 4.3 Chloride 101 Carbon Dioxide 29 Anion Gap 7 L BUN 13 Creatinine 0.7 Creat Clearance w eGFR > 60 Random Glucose 87 Calcium 8.5 Total Bilirubin 0.3 D AST 48 H D ALT 73 D Alkaline Phosphatase 52 Total Protein 6.6 Albumin 3.3 L Urine Color Ltyellow Urine Appearance Clear Urine pH 5.0 Ur Specific [place] 1.013 Urine Protein Negative Urine Glucose (UA) Negative Urine Ketones Negative Urine Blood Negative Urine Nitrite Negative Urine Bilirubin Negative Urine Urobilinogen Negative Ur Leukocyte Esterase Trace Urine WBC (Auto) <1 Urine RBC (Auto) 1 Ur Epithelial Cells Rare Assessment: 01/12/18 12:21 WITHDRAWAL SX Plan: CONTINUE DETOX INCREASE PO FLUIDS FOLLOW UP WITH PSYCH EVAL/RE:INSOMNIA
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
[2018-01-12] MEDS: chlordiazePOXIDE HCL 25 MG CAPSULE PO PRN (15:02)
--- NOTE | 2018-01-12 18:00 | EKG ---
Test Reason : Blood Pressure : / mmHG Vent. Rate : 053 BPM Atrial Rate : 053 BPM P-R Int : 156 ms QRS Dur : 094 ms QT Int : 452 ms P-R-T Axes : 011 063 061 degrees QTc Int : 424 ms SINUS BRADYCARDIA OTHERWISE NORMAL ECG WHEN COMPARED WITH ECG OF 29-NOV-2016 16:54, NO SIGNIFICANT CHANGE WAS FOUND Confirmed by MD KAVIN, KENNEY ([id number]) on 01/12/2018 5:59:44 PM Referred By: Confirmed By:KENNEY VALE MD
[2018-01-12] MEDS ORDERED: QUEtiapine FUMARATE 100 MG TABLET (FP) PO SCH (22:00)
[2018-01-12] MEDS: THIAMINE HCL 100 MG TABLET (FP) PO SCH (22:16)
[2018-01-12] MEDS: MELATONIN 5 MG TABLETS PO PRN (22:18)
[2018-01-13] MEDS: NICOTINE POLACRILEX 4 MG GUM BC PRN ×6 (04:16→22:26)
[2018-01-13] MEDS: chlordiazePOXIDE HCL 25 MG CAPSULE PO PRN ×3 (04:16→21:12)
[2018-01-13] MEDS: chlordiazePOXIDE HCL 25 MG CAPSULE PO SCH ×3 (05:10→17:05)
[2018-01-13] MEDS: METHADONE HCL 40 MG DISPERSABLE TABLET PO SCH (05:13)
[2018-01-13] MEDS: PRENATAL VITAMINS W/ FOLIC ACID TABLET (FP) PO SCH (10:04)
[2018-01-13] MEDS: NICOTINE 21 MG/24 HOURS TOPICAL PATCH TD SCH (10:04)
--- NOTE | 2018-01-13 14:22 | PN ---
[facility] CIWA - CIWA Score Nausea/Vomitin-No Nausea/No Vomiting Muscle Tremors: 4-Moderate,w/Arms Extend Anxiety: 4-Mod. Anxious/Guarded Agitation: 4-Moderately Restless Paroxysmal Sweats: 1-Minimal Palms Moist Orientation: 0-Oriented Tacttile Disturbances: 0-None Auditory Disturbances: 0-None Visual Disturbances: 0-None Headache: 0-None Present CIWA-Ar Total Score: 13 S Progress Note (SOAP) Subjective: OOB WITH STEADY GAIT.INTERMITTENT SLEEP. Objective: 01/13/18 14:20 Vital Signs 01/13/18 01/13/18 01/13/18 06:36 09:18 13:55 Temperature 98 F 96.0 F L 97.1 F L Pulse Rate 52 L 75 67 Respiratory 18 20 18 Rate Blood Pressure 112/59 106/64 111/62 Laboratory Tests 01/11/18 01/12/18 01/12/18 Unknown 07:30 07:30 WBC 5.1 RBC 4.21 Hgb 13.6 Hct 39.6 MCV 94.1 MCH 32.3 MCHC 34.3 RDW 13.1 Plt Count 229 MPV 8.3 Sodium 137 Potassium 4.3 Chloride 101 Carbon Dioxide 29 Anion Gap 7 L BUN 13 Creatinine 0.7 Creat Clearance w eGFR > 60 Random Glucose 87 Calcium 8.5 Total Bilirubin 0.3 D AST 48 H D ALT 73 D Alkaline Phosphatase 52 Total Protein 6.6 Albumin 3.3 L Urine Color Ltyellow Urine Appearance Clear Urine pH 5.0 Ur Specific [place] 1.013 Urine Protein Negative Urine Glucose (UA) Negative Urine Ketones Negative Urine Blood Negative Urine Nitrite Negative Urine Bilirubin Negative Urine Urobilinogen Negative Ur Leukocyte Esterase Trace Urine WBC (Auto) <1 Urine RBC (Auto) 1 Ur Epithelial Cells Rare RPR Titer 01/12/18 07:30 WBC RBC Hgb Hct MCV MCH MCHC RDW Plt Count MPV Sodium Potassium Chloride Carbon Dioxide Anion Gap BUN Creatinine Creat Clearance w eGFR Random Glucose Calcium Total Bilirubin AST ALT Alkaline Phosphatase Total Protein Albumin Urine Color Urine Appearance Urine pH Ur Specific [place] Urine Protein Urine Glucose (UA) Urine Ketones Urine Blood Urine Nitrite Urine Bilirubin Urine Urobilinogen Ur Leukocyte Esterase Urine WBC (Auto) Urine RBC (Auto) Ur Epithelial Cells RPR Titer Nonreactive Assessment: 01/13/18 14:21 WITHDRAWAL SX Plan: CONTINUE DETOX F/U WITH PSYCH MD TODAY RE:INSOMNIA
[2018-01-13] MEDS: QUEtiapine FUMARATE 100 MG TABLET (FP) PO SCH (22:24)
[2018-01-13] MEDS: chlordiazePOXIDE 5 MG CAPSULE PO SCH (22:24)
[2018-01-13] MEDS: THIAMINE HCL 100 MG TABLET (FP) PO SCH (22:24)
[2018-01-14] MEDS: METHADONE HCL 40 MG DISPERSABLE TABLET PO SCH (05:34)
[2018-01-14] MEDS: chlordiazePOXIDE 5 MG CAPSULE PO SCH ×3 (05:34→17:09)
[2018-01-14] MEDS: NICOTINE POLACRILEX 4 MG GUM BC PRN ×4 (05:36→20:03)
[2018-01-14] MEDS: NICOTINE 21 MG/24 HOURS TOPICAL PATCH TD SCH (10:17)
[2018-01-14] MEDS: PRENATAL VITAMINS W/ FOLIC ACID TABLET (FP) PO SCH (10:17)
--- NOTE | 2018-01-14 13:54 | PN ---
[facility] Progress Note (SOAP) Subjective: ANXIETY,SWEATS/CHILLS,FATIGUE. Objective: 01/14/18 13:53 Vital Signs 01/14/18 01/14/18 01/14/18 06:11 06:30 09:51 Temperature 98.8 F 97.3 F L Pulse Rate 62 71 Respiratory 16 18 16 Rate Blood Pressure 113/63 120/75 Laboratory Tests 01/11/18 01/12/18 01/12/18 Unknown 07:30 07:30 WBC 5.1 RBC 4.21 Hgb 13.6 Hct 39.6 MCV 94.1 MCH 32.3 MCHC 34.3 RDW 13.1 Plt Count 229 MPV 8.3 Sodium 137 Potassium 4.3 Chloride 101 Carbon Dioxide 29 Anion Gap 7 L BUN 13 Creatinine 0.7 Creat Clearance w eGFR > 60 Random Glucose 87 Calcium 8.5 Total Bilirubin 0.3 D AST 48 H D ALT 73 D Alkaline Phosphatase 52 Total Protein 6.6 Albumin 3.3 L Urine Color Ltyellow Urine Appearance Clear Urine pH 5.0 Ur Specific [place] 1.013 Urine Protein Negative Urine Glucose (UA) Negative Urine Ketones Negative Urine Blood Negative Urine Nitrite Negative Urine Bilirubin Negative Urine Urobilinogen Negative Ur Leukocyte Esterase Trace Urine WBC (Auto) <1 Urine RBC (Auto) 1 Ur Epithelial Cells Rare RPR Titer 01/12/18 07:30 WBC RBC Hgb Hct MCV MCH MCHC RDW Plt Count MPV Sodium Potassium Chloride Carbon Dioxide Anion Gap BUN Creatinine Creat Clearance w eGFR Random Glucose Calcium Total Bilirubin AST ALT Alkaline Phosphatase Total Protein Albumin Urine Color Urine Appearance Urine pH Ur Specific [place] Urine Protein Urine Glucose (UA) Urine Ketones Urine Blood Urine Nitrite Urine Bilirubin Urine Urobilinogen Ur Leukocyte Esterase Urine WBC (Auto) Urine RBC (Auto) Ur Epithelial Cells RPR Titer Nonreactive Assessment: 01/14/18 13:54 WITHDRAWAL SX Plan: CONTINUE DETOX
[2018-01-14] MEDS: hydrOXYzine PAMOATE 50 MG CAPSULE (FP) PO PRN (20:03)
[2018-01-14] MEDS: THIAMINE HCL 100 MG TABLET (FP) PO SCH (22:31)
[2018-01-14] MEDS: chlordiazePOXIDE HCL 10 MG CAPSULE PO SCH (22:31)
[2018-01-14] MEDS: QUEtiapine FUMARATE 100 MG TABLET (FP) PO SCH (22:32)
[2018-01-15] MEDS: METHADONE HCL 40 MG DISPERSABLE TABLET PO SCH (05:13)
[2018-01-15] MEDS: chlordiazePOXIDE HCL 10 MG CAPSULE PO SCH ×2 (05:13→10:52)
[2018-01-15] MEDS: NICOTINE POLACRILEX 4 MG GUM BC PRN ×2 (05:15→10:32)
[2018-01-15 09:54] VITALS: BP 109/73; PULSE 103; TEMP 96.4
[2018-01-15] MEDS: PRENATAL VITAMINS W/ FOLIC ACID TABLET (FP) PO SCH (10:31)
[2018-01-15] MEDS: NICOTINE 21 MG/24 HOURS TOPICAL PATCH TD SCH (10:31)
--- NOTE | 2018-01-15 10:45 | PN ---
[facility] Progress Note (SOAP) Subjective: DETOX COMPLETED. ALERT O X 3. NAD. PT REFERRED TO REHAB TODAY. Objective: 01/15/18 10:44 Vital Signs 01/15/18 01/15/18 01/15/18 03:30 06:32 09:53 Temperature 98.0 F 96.4 F L Pulse Rate 67 103 H Respiratory 18 18 20 Rate Blood Pressure 108/62 109/73 Laboratory Tests 01/11/18 01/12/18 01/12/18 Unknown 07:30 07:30 WBC 5.1 RBC 4.21 Hgb 13.6 Hct 39.6 MCV 94.1 MCH 32.3 MCHC 34.3 RDW 13.1 Plt Count 229 MPV 8.3 Sodium 137 Potassium 4.3 Chloride 101 Carbon Dioxide 29 Anion Gap 7 L BUN 13 Creatinine 0.7 Creat Clearance w eGFR > 60 Random Glucose 87 Calcium 8.5 Total Bilirubin 0.3 D AST 48 H D ALT 73 D Alkaline Phosphatase 52 Total Protein 6.6 Albumin 3.3 L Urine Color Ltyellow Urine Appearance Clear Urine pH 5.0 Ur Specific [place] 1.013 Urine Protein Negative Urine Glucose (UA) Negative Urine Ketones Negative Urine Blood Negative Urine Nitrite Negative Urine Bilirubin Negative Urine Urobilinogen Negative Ur Leukocyte Esterase Trace Urine WBC (Auto) <1 Urine RBC (Auto) 1 Ur Epithelial Cells Rare RPR Titer 01/12/18 07:30 WBC RBC Hgb Hct MCV MCH MCHC RDW Plt Count MPV Sodium Potassium Chloride Carbon Dioxide Anion Gap BUN Creatinine Creat Clearance w eGFR Random Glucose Calcium Total Bilirubin AST ALT Alkaline Phosphatase Total Protein Albumin Urine Color Urine Appearance Urine pH Ur Specific [place] Urine Protein Urine Glucose (UA) Urine Ketones Urine Blood Urine Nitrite Urine Bilirubin Urine Urobilinogen Ur Leukocyte Esterase Urine WBC (Auto) Urine RBC (Auto) Ur Epithelial Cells RPR Titer Nonreactive Assessment: 01/15/18 10:45 MEDICALLY STABLE Plan: D/C PT TODAY FOLLOW UP AT REHAB TODAY
--- NOTE | 2018-01-15 10:47 | DS ---
[facility] Detox Discharge Summary Admission Date: 01/11/18 Discharge Date: 01/15/18 - History Present History: Alcohol Dependence, Sedative Dependence, MMTP Additional Comments: DETOX COMPLETED. ALERT O X 3. NAD. Pertinent Past History: PLEASE SEE DX BELOW - Physical Exam Results Vital Signs: Vital Signs Temperature 96.4 F L 01/15/18 09:53 Pulse Rate 103 H 01/15/18 09:53 Respiratory Rate 20 01/15/18 09:53 Blood Pressure 109/73 01/15/18 09:53 O2 Sat by Pulse Oximetry (%) Pertinent Admission Physical Exam Findings: WITHDRAWAL SX Laboratory Tests 01/11/18 01/12/18 01/12/18 Unknown 07:30 07:30 WBC 5.1 RBC 4.21 Hgb 13.6 Hct 39.6 MCV 94.1 MCH 32.3 MCHC 34.3 RDW 13.1 Plt Count 229 MPV 8.3 Sodium 137 Potassium 4.3 Chloride 101 Carbon Dioxide 29 Anion Gap 7 L BUN 13 Creatinine 0.7 Creat Clearance w eGFR > 60 Random Glucose 87 Calcium 8.5 Total Bilirubin 0.3 D AST 48 H D ALT 73 D Alkaline Phosphatase 52 Total Protein 6.6 Albumin 3.3 L Urine Color Ltyellow Urine Appearance Clear Urine pH 5.0 Ur Specific [place] 1.013 Urine Protein Negative Urine Glucose (UA) Negative Urine Ketones Negative Urine Blood Negative Urine Nitrite Negative Urine Bilirubin Negative Urine Urobilinogen Negative Ur Leukocyte Esterase Trace Urine WBC (Auto) <1 Urine RBC (Auto) 1 Ur Epithelial Cells Rare RPR Titer 01/12/18 07:30 WBC RBC Hgb Hct MCV MCH MCHC RDW Plt Count MPV Sodium Potassium Chloride Carbon Dioxide Anion Gap BUN Creatinine Creat Clearance w eGFR Random Glucose Calcium Total Bilirubin AST ALT Alkaline Phosphatase Total Protein Albumin Urine Color Urine Appearance Urine pH Ur Specific [place] Urine Protein Urine Glucose (UA) Urine Ketones Urine Blood Urine Nitrite Urine Bilirubin Urine Urobilinogen Ur Leukocyte Esterase Urine WBC (Auto) Urine RBC (Auto) Ur Epithelial Cells RPR Titer Nonreactive - Treatment Hospital Course: Detox Protocol Followed, Detoxed Safely, Responded well, Discharged Condition Good, Rehab Referral Accepted Patient has Accepted a Rehab Referral to: [facility] - Medication Discharge Medications: Ambulatory Orders Methadone (Detox) [Dolophine -] 160 mg PO DAILY 01/11/18 - Diagnosis (1) Nicotine dependence Current Visit: Yes Status: Acute Qualifiers: Nicotine product type: cigarettes Substance use status: in withdrawal Qualified Code(s): F17.213 - Nicotine dependence, cigarettes, with withdrawal (2) Sedative hypnotic or anxiolytic dependence Current Visit: Yes Status: Acute (3) Alcohol dependence with uncomplicated withdrawal Current Visit: Yes Status: Acute (4) Hepatitis C Current Visit: Yes Status: Chronic Qualifiers: Viral hepatitis chronicity: chronic (5) Methadone maintenance therapy patient Current Visit: Yes Status: Chronic - AMA Did Patient Leave Against Medical Advice: No
== END 2018-01-15 13:20 | disposition other institution (70) | DRG 773 ==
LOC: YASAS 13:43 → Y3N 18:16
PROVIDERS: ADMIT Surgery; ATTEND Surgery
PROC: HZ2ZZZZ Detoxification Services for Substance Abuse Treatment (ICD-10-PCS; principal; 2018-01-11)
DX: F10.230 Alcohol dependence with withdrawal, uncomplicated (principal); F11.20 Opioid dependence, uncomplicated; F13.20 Sedative, hypnotic or anxiolytic dependence, uncomplicated; F14.20 Cocaine dependence, uncomplicated; F12.10 Cannabis abuse, uncomplicated; F17.213 Nicotine dependence, cigarettes, with withdrawal; F90.9 Attention-deficit hyperactivity disorder, unspecified type; F19.24 Other psychoactive substance dependence with psychoactive substance-induced mood disorder; B18.2 Chronic viral hepatitis C; G47.00 Insomnia, unspecified; Z86.69 Personal history of other diseases of the nervous system and sense organs
CPT/HCPCS: 36415; 80053; 81003; 81015; 85027; 86593; 93005; 93010

== ENCOUNTER 2018-10-11 15:46 | Inpatient (IN) | payer OTHER ==
[2018-10-11 16:59] VITALS: BMI 28.8
--- NOTE | 2018-10-11 17:28 | HP ---
CIWA Score - Admission Criteria [facility]AS Guidelines: Admission for Medically Managed Detox: Requires at least one of the followin. CIWA greater than 12 2. Seizures within the past 24 hours 3. Delirium tremens within the past 24 hours 4. Hallucinations within the past 24 hours 5. Acute intervention needed for co occurring medical disorder 6. Acute intervention needed for co occurring psychiatric disorder 7. Severe withdrawal that cannot be handled at a lower level of care (continued vomiting, continued diarrhea, abnormal vital signs) requiring intravenous medication and/or fluids 8. Admission ROS [facility] Chief Complaint: rehab Allergies/Adverse Reactions: Allergies Allergy/AdvReac Type Severity Reaction Status Date / Time shellfish derived Allergy Severe Swelling Verified 10/11/18 18:02 SEA FOOD Allergy Severe Swelling Uncoded 10/11/18 17:08 History of Present Illness: 28 yo male with hx of xanax, alcohol, cocaine and nicotine dependence presents for rehabilitation. Patient was referred by [facility] in which he completed detox 09/2718 -10/11/18. PMHX: hep C ( on meds), ventral hernia, constipation, weight loss, insomnia. Linked to M[facility] 01/14 [phone] methadone 110 mg, last medicated today while at [facility], dose pending verification. Denies suicidal / homicidal ideation. Reports hx of alcohol and benzo withdrawal, last episode July 2018. Longest period of sobriety seven months reports relapsed July 29, 2018. Exam Limitations: No Limitations - Ebola screening Have you traveled outside of the country in the last 21 days: No Have you had contact with anyone from an Ebola affected area: No Have you been sick,other than usual withdrawal symptoms: No - Review of Systems Constitutional: Chills, Diaphoresis, Changes in sleep, Other (tremors keysha benzo withdrawal) EENT: reports: No Symptoms Reported Respiratory: reports: No Symptoms reported Cardiac: reports: No Symptoms Reported GI: reports: Constipated, Poor Fluid Intake : reports: No Symptoms Reported Musculoskeletal: reports: No Symptoms Reported Integumentary: reports: No Symptoms Reported Neuro: reports: Headache Endocrine: reports: Increased Thirst Hematology: reports: No Symptoms Reported Psychiatric: reports: Orientated x3, Anxious Other Systems: Reviewed and Negative Patient History - Patient Medical History Hx Anemia: No Hx Asthma: No Hx Chronic Obstructive Pulmonary Disease (COPD): No Hx Cancer: No Hx Cardiac Disorders: No Hx Congestive Heart Failure: No Hx Hypertension: No Hx Hypercholesterolemia: No Hx Pacemaker: No HX Cerebrovascular Accident: No Hx Seizures: Yes (Last episode 2011 r/t with) Hx Dementia: No Hx Diabetes: No Hx Gastrointestinal Disorders: No Hx Liver Disease: No Hx Genitourinary Disorders: No Hx Sexually Transmitted Disorders: No Hx Renal Disease (ESRD): No Hx Thyroid Disease: No Hx Human Immunodeficiency Virus (HIV): No (Last tested a week ago ) Hx Hepatitis C: Yes Hx Depression: Yes Hx Suicide Attempt: No Hx Bipolar Disorder: No Hx Schizophrenia: No - Patient Surgical History Past Surgical History: No Hx Neurologic Surgery: No Hx Cataract Extraction: No Hx Cardiac Surgery: No Hx Lung Surgery: No Hx Breast Surgery: No Hx Breast Biopsy: No Hx Abdominal Surgery: No Hx Appendectomy: No Hx Cholecystectomy: No Hx Genitourinary Surgery: No Hx Section: (N/A) Hx Orthopedic Surgery: No Other Surgical History: throat sx at 3 yrs old Anesthesia Reaction: (N/A) - PPD History Previous Implant?: No Documented Results: Negative w/proof Date: 01/13/18 Results: 0 mm PPD to be Administered?: No - Smoking Cessation Smoking history: Current every day smoker Have you smoked in the past 12 months: Yes Aproximately how many cigarettes per day: 40 Hx Chewing Tobacco Use: No (DAILY) Initiated information on smoking cessation: Yes 'Breaking Loose' booklet given: 10/11/18 - Substance & Tx. History Hx Alcohol Use: Yes Hx Substance Use: Yes Substance Use Type: Alcohol, Cocaine, Tranquilizers Hx Substance Use Treatment: Yes (Detox [facility] 10/06/18 -10/11/18) - Substances Abused Alcohol Route: Oral Frequency: 3-6 times per week Amount used: 1 pint liquor Age of first use: 12 Date of Last Use: 10/03/18 Alprazolam (Xanax) Route: Oral Frequency: Daily Amount used: 8 mg Age of first use: 17 Date of Last Use: 11/02/18 Cocaine Route: Injection Frequency: Daily Amount used: $100 Age of first use: 13 Date of Last Use: 09/28/18 Family Disease History - Family Disease History Family Disease History: Other: Father (alive, incarcerated - ), Mother ( ) Admission Physical Exam S - Vital Signs Vital Signs: Vital Signs - 24 hr 10/11/18 16:57 Temperature 97.9 F Pulse Rate 76 Respiratory 18 Rate Blood Pressure 132/81 - Physical General Appearance: Yes: Appropriately Dressed, Thin, Tremorous, Anxious HEENTM: Yes: EOMI, Hearing grossly Normal, Normal ENT Inspection, Normocephalic , Normal Voice, CAROLYN, Pharynx Normal, Tm's normal Respiratory: Yes: Chest Non-Tender, Lungs Clear, Normal Breath Sounds, No Respiratory Distress, No Accessory Muscle Use Neck: Yes: Within Normal Limits Breast: Yes: Breast Exam Deferred Cardiology: Yes: Regular Rhythm, Regular Rate Abdominal: Yes: Normal Bowel Sounds, Non Tender, Flat, Soft Genitourinary: Yes: Within Normal Limits Back: Yes: Normal Inspection Musculoskeletal: Yes: full range of Motion, Gait Steady, Pelvis Stable Extremities: Yes: Normal Capillary Refill, Normal Inspection, Normal Range of Motion, Non-Tender Neurological: Yes: survey associate II-XII NML intact, Fully Oriented, Alert, Motor Strength 5/5, Depressed Affect Integumentary: Yes: Normal Color, Dry, Warm Lymphatic: Yes: Within Normal Limits - Diagnostic (1) Constipation Current Visit: Yes Status: Chronic Qualifiers: Constipation type: unspecified constipation type Qualified Code(s): K59.00 - Constipation, unspecified (2) Weight loss Current Visit: Yes Status: Acute (3) Alcohol dependence Current Visit: Yes Status: Acute Qualifiers: Substance use status: uncomplicated Qualified Code(s): F10.20 - Alcohol dependence, uncomplicated (4) Cocaine dependence Current Visit: Yes Status: Acute Qualifiers: Substance use status: uncomplicated Qualified Code(s): F14.20 - Cocaine dependence, uncomplicated (5) Sedative hypnotic or anxiolytic dependence Current Visit: Yes Status: Acute (6) Hepatitis C Current Visit: Yes Status: Chronic Qualifiers: Viral hepatitis chronicity: acute Hepatic coma status: without hepatic coma Qualified Code(s): B17.10 - Acute hepatitis C without hepatic coma (7) Nicotine dependence Current Visit: Yes Status: Chronic Qualifiers: Nicotine product type: cigarettes Substance use status: in withdrawal Qualified Code(s): F17.213 - Nicotine dependence, cigarettes, with withdrawal (8) Opioid dependence on agonist therapy Current Visit: Yes Status: Chronic [facility] Breath Alcohol Content Breath Alcohol Content: 0 Urine Drug Screen - Results Drug Screen Negative: No Urine Drug Screen Results: BZO-Benzodiazepines, MTD-Methadone Inpatient Rehab Admission - Rehab Decision to Admit Inpatient rehab admission?: Yes - Initial Determination Are CD services needed?: Yes Free of communicable disease: Yes Not in need of hospitalization: Yes - Rehab Admission Criteria Previous failed treatment: Yes Poor recovery environment: Yes Comorbidities: Yes Lacks judgement: Yes Patient is meeting Inpatient Rehab admission criteria:: Yes
[2018-10-11] MEDS ORDERED: LOPERAMIDE HCL 2 MG CAPSULE PO PRN (17:43)
[2018-10-11] MEDS ORDERED: MAGNESIUM CITRATE 300 ML BOTTLE PO PRN (17:43)
[2018-10-11] MEDS ORDERED: guaiFENesin/D-METHORPHAN HB 10 ML UNIT-DOSE CUPS PO PRN (17:43)
[2018-10-11] MEDS ORDERED: MAG HYDROX/AL HYDROX/SIMETH 30 ML UNIT-DOSE CUP PO PRN (17:43)
[2018-10-11] MEDS ORDERED: ACETAMINOPHEN 325 MG TABLET (FP) PO PRN (17:43)
[2018-10-11] MEDS ORDERED: P-EPHED 60MG/TRIPROLIDI 2.5MG TABLET PO PRN (17:43)
[2018-10-11] MEDS ORDERED: IBUPROFEN 400 MG TABLET (FP) PO PRN (17:43)
[2018-10-11] MEDS ORDERED: MENTHOL/PHENOL 1 EACH UD MM PRN (17:43)
[2018-10-11] MEDS ORDERED: DOCUSATE SODIUM 100 MG CAPSULE (FP) PO PRN (18:09)
[2018-10-11] MEDS: THIAMINE HCL 100 MG TABLET (FP) PO SCH (21:57)
[2018-10-11] MEDS: GABAPENTIN 100 MG CAPSULE (FP) PO SCH (21:57)
[2018-10-11 23:00] LABS: URINE APPEARANCE CLEAR; URINE BILIRUBIN NEGATIVE (<2.0 mg/dL); URINE COLOR DKYELLOW; URINE GLUCOSE (UA) NEGATIVE (NEGATIVE); URINE KETONE NEGATIVE (NEGATIVE); URINE LEUK ESTERASE TRACE (NEGATIVE); URINE NITRITE NEGATIVE (NEGATIVE); URINE PROTEIN NEGATIVE (NEGATIVE); URINE UROBILINOGEN NEGATIVE mg/dL (0.2-1.0)
[2018-10-11 23:05] LABS: URINE BACTERIA RARE /hpf (NONE SEEN); URINE MUCUS RARE
[2018-10-12] MEDS: GABAPENTIN 100 MG CAPSULE (FP) PO SCH ×3 (06:00→21:42)
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
[2018-10-12] MEDS: PRENATAL VITAMINS W/ FOLIC ACID TABLET (FP) PO SCH (10:25)
[2018-10-12] MEDS: NICOTINE POLACRILEX 4 MG GUM BC PRN ×3 (10:25→21:42)
[2018-10-12] MEDS: NICOTINE 21 MG/24 HOURS TOPICAL PATCH TD SCH (10:25)
[2018-10-12] MEDS ORDERED: METHADONE HCL 10 MG TABLET PO ONE (10:48)
[2018-10-12] MEDS: PATIENT'S OWN MEDICATION (NON-FORMULARY) (Glecaprevir/Pibrentasvir [Mavyret 100-40 Mg Tabl PO SCH (11:00)
[2018-10-12] MEDS ORDERED: PT OWN MED DRAWER 7, Y5N ONE (11:12)
[2018-10-12] MEDS ORDERED: METHADONE HCL 10 MG TABLET ONE (11:50)
[2018-10-12] MEDS ORDERED: METHADONE HCL 40 MG DISPERSABLE TABLET ONE (11:50)
[2018-10-12] MEDS ORDERED: METHADONE 80 MG, METHADONE 30 MG PO ONE (12:00)
[2018-10-12] MEDS: MAGNESIUM HYDROX 2400MG/30ML ORAL SUSPENSION 30 ML CUP PO PRN (12:39)
[2018-10-12 13:10] LABS: HEMATOCRIT 39.3 % (35.4-49); HEMOGLOBIN 13.5 GM/dL (11.7-16.9); MCH 32.8 pg (25.7-33.7); MCHC 34.4 g/dl (32.0-35.9); MEAN CELL VOLUME 95.2 fl (80-96); MEAN PLT VOLUME 8.7 fl (7.5-11.1); PLATELET COUNT 244 K/MM3 (134-434); RBC 4.13 M/mm3 (4.00-5.60); WHITE BLOOD COUNT 4.9 K/mm3 (4.0-10.0)
[2018-10-12 13:20] LABS: ALBUMIN 3.4 g/dl (3.4-5.0); ALK PHOS 80 U/L (45-117); ANION GAP 7 MMOL/L (8-16); BILIRUBIN,TOTAL 0.3 mg/dL (0.2-1); BLOOD UREA NITROGEN 19 mg/dL (7-18); CALCIUM 8.3 mg/dL (8.5-10.1); CHLORIDE 100 mmol/L (98-107); CO2 28 mmol/L (21-32); CREATININE 0.7 mg/dL (0.55-1.3); GLUCOSE,RANDOM 98 mg/dL (74-106); POTASSIUM 4.4 mmol/L (3.5-5.1); SGOT/AST 160 U/L (15-37); SGPT/ALT 282 U/L (13-61); SODIUM 135 mmol/L (136-145); TOT PROT 6.8 g/dl (6.4-8.2)
[2018-10-12] MEDS: THIAMINE HCL 100 MG TABLET (FP) PO SCH (21:42)
[2018-10-12] MEDS: QUEtiapine FUMARATE 100 MG TABLET (FP) PO SCH (21:42)
[2018-10-13] MEDS: NICOTINE POLACRILEX 4 MG GUM BC PRN ×5 (00:35→21:37)
[2018-10-13] MEDS ORDERED: METHADONE HCL 40 MG DISPERSABLE TABLET ONE (05:18)
[2018-10-13] MEDS ORDERED: METHADONE HCL 10 MG TABLET ONE (05:18)
[2018-10-13] MEDS ORDERED: METHADONE HCL 10 MG TABLET PO SCH (06:00)
[2018-10-13] MEDS: METHADONE 80 MG, METHADONE 30 MG PO SCH (06:22)
[2018-10-13] MEDS: GABAPENTIN 100 MG CAPSULE (FP) PO SCH ×3 (06:22→21:36)
[2018-10-13] MEDS ORDERED: PT OWN MED DRAWER 7, Y5N ONE ×2 (08:55→10:32)
[2018-10-13] MEDS: NICOTINE 21 MG/24 HOURS TOPICAL PATCH TD SCH (09:51)
[2018-10-13] MEDS: PRENATAL VITAMINS W/ FOLIC ACID TABLET (FP) PO SCH (09:51)
[2018-10-13] MEDS: PATIENT'S OWN MEDICATION (NON-FORMULARY) (Glecaprevir/Pibrentasvir [Mavyret 100-40 Mg Tabl PO SCH (09:51)
[2018-10-13] MEDS: MAGNESIUM HYDROX 2400MG/30ML ORAL SUSPENSION 30 ML CUP PO PRN (09:57)
[2018-10-13] MEDS: THIAMINE HCL 100 MG TABLET (FP) PO SCH (21:36)
[2018-10-13] MEDS: QUEtiapine FUMARATE 100 MG TABLET (FP) PO SCH (21:36)
[2018-10-13] MEDS: MELATONIN 5 MG TABLETS PO PRN (21:36)
[2018-10-13] MEDS: hydrOXYzine PAMOATE 50 MG CAPSULE (FP) PO PRN (21:37)
[2018-10-14] MEDS ORDERED: METHADONE HCL 40 MG DISPERSABLE TABLET ONE (05:19)
[2018-10-14] MEDS ORDERED: METHADONE HCL 10 MG TABLET ONE (05:19)
[2018-10-14] MEDS: METHADONE 80 MG, METHADONE 30 MG PO SCH (06:15)
[2018-10-14] MEDS: GABAPENTIN 100 MG CAPSULE (FP) PO SCH ×3 (06:15→21:05)
[2018-10-14] MEDS: NICOTINE POLACRILEX 4 MG GUM BC PRN ×4 (06:17→17:34)
[2018-10-14] MEDS ORDERED: PT OWN MED DRAWER 7, Y5N ONE ×2 (09:22→11:03)
[2018-10-14] MEDS: PATIENT'S OWN MEDICATION (NON-FORMULARY) (Glecaprevir/Pibrentasvir [Mavyret 100-40 Mg Tabl PO SCH (10:24)
[2018-10-14] MEDS: PRENATAL VITAMINS W/ FOLIC ACID TABLET (FP) PO SCH (10:24)
[2018-10-14] MEDS: NICOTINE 21 MG/24 HOURS TOPICAL PATCH TD SCH (10:24)
[2018-10-14] MEDS: MAGNESIUM HYDROX 2400MG/30ML ORAL SUSPENSION 30 ML CUP PO PRN (10:27)
--- NOTE | 2018-10-14 15:11 | PN ---
[facility] Progress Note Note: Client states that when he was at [facility] the provider was going to give him something to help him urinate. He is experiencing hesitancy when urinating and feels like he does not completely empty his bladder. But states that it is getting better daily. Does not have a UTI. Urine Test Results Urine Color Dkyellow 10/11/18 22:45 Urine Appearance Clear 10/11/18 22:45 Urine pH 8.0 (5.0-8.0) D 10/11/18 22:45 Ur Specific Eads 1.025 (1.010-1.035) 10/11/18 22:45 Urine Protein Negative (NEGATIVE) 10/11/18 22:45 Urine Glucose (UA) Negative (NEGATIVE) 10/11/18 22:45 Urine Ketones Negative (NEGATIVE) 10/11/18 22:45 Urine Blood Negative (NEGATIVE) 10/11/18 22:45 Urine Nitrite Negative (NEGATIVE) 10/11/18 22:45 Urine Bilirubin Negative (<2.0 mg/dL) 10/11/18 22:45 Ur Leukocyte Esterase Trace (NEGATIVE) 10/11/18 22:45 Urine Bacteria Rare /hpf (NONE SEEN) 10/11/18 22:45 Urine Mucus Rare 10/11/18 22:45 Discussed with the patient the need for a work-up before any medication is prescribed. Continue to monitor.
[2018-10-14] MEDS: QUEtiapine FUMARATE 100 MG TABLET (FP) PO SCH (21:05)
[2018-10-14] MEDS: MELATONIN 5 MG TABLETS PO PRN (21:05)
[2018-10-14] MEDS: THIAMINE HCL 100 MG TABLET (FP) PO SCH (21:05)
[2018-10-14] MEDS: hydrOXYzine PAMOATE 50 MG CAPSULE (FP) PO PRN (21:05)
[2018-10-15] MEDS ORDERED: METHADONE HCL 10 MG TABLET ONE (04:46)
[2018-10-15] MEDS ORDERED: METHADONE HCL 40 MG DISPERSABLE TABLET ONE (04:46)
[2018-10-15] MEDS: GABAPENTIN 100 MG CAPSULE (FP) PO SCH ×3 (06:08→23:45)
[2018-10-15] MEDS: METHADONE 80 MG, METHADONE 30 MG PO SCH (06:08)
[2018-10-15] MEDS: NICOTINE POLACRILEX 4 MG GUM BC PRN ×3 (06:09→23:44)
[2018-10-15] MEDS ORDERED: PT OWN MED DRAWER 7, Y5N ONE ×2 (08:57→11:05)
[2018-10-15] MEDS: PRENATAL VITAMINS W/ FOLIC ACID TABLET (FP) PO SCH (09:45)
[2018-10-15] MEDS: NICOTINE 21 MG/24 HOURS TOPICAL PATCH TD SCH (09:45)
[2018-10-15] MEDS: PATIENT'S OWN MEDICATION (NON-FORMULARY) (Glecaprevir/Pibrentasvir [Mavyret 100-40 Mg Tabl PO SCH (09:45)
[2018-10-15] MEDS: hydrOXYzine PAMOATE 50 MG CAPSULE (FP) PO PRN ×3 (09:46→23:44)
[2018-10-15] MEDS: MAGNESIUM HYDROX 2400MG/30ML ORAL SUSPENSION 30 ML CUP PO PRN (09:49)
[2018-10-15] MEDS: QUEtiapine FUMARATE 100 MG TABLET (FP) PO SCH (23:44)
[2018-10-15] MEDS: MELATONIN 5 MG TABLETS PO PRN (23:44)
[2018-10-15] MEDS: THIAMINE HCL 100 MG TABLET (FP) PO SCH (23:44)
[2018-10-16] MEDS ORDERED: METHADONE HCL 10 MG TABLET ONE (05:22)
[2018-10-16] MEDS ORDERED: METHADONE HCL 40 MG DISPERSABLE TABLET ONE (05:22)
[2018-10-16] MEDS: NICOTINE POLACRILEX 4 MG GUM BC PRN ×4 (06:06→21:04)
[2018-10-16] MEDS: GABAPENTIN 100 MG CAPSULE (FP) PO SCH ×3 (06:06→21:04)
[2018-10-16] MEDS: METHADONE 80 MG, METHADONE 30 MG PO SCH (06:07)
[2018-10-16] MEDS ORDERED: PT OWN MED DRAWER 7, Y5N ONE ×2 (08:45→10:16)
[2018-10-16] MEDS: PATIENT'S OWN MEDICATION (NON-FORMULARY) (Glecaprevir/Pibrentasvir [Mavyret 100-40 Mg Tabl PO SCH (09:29)
[2018-10-16] MEDS: NICOTINE 21 MG/24 HOURS TOPICAL PATCH TD SCH (09:29)
[2018-10-16] MEDS: PRENATAL VITAMINS W/ FOLIC ACID TABLET (FP) PO SCH (09:29)
[2018-10-16] MEDS: MAGNESIUM HYDROX 2400MG/30ML ORAL SUSPENSION 30 ML CUP PO PRN (10:09)
[2018-10-16] MEDS: THIAMINE HCL 100 MG TABLET (FP) PO SCH (21:04)
[2018-10-16] MEDS: MELATONIN 5 MG TABLETS PO PRN (21:04)
[2018-10-16] MEDS: QUEtiapine FUMARATE 100 MG TABLET (FP) PO SCH (21:04)
[2018-10-17] MEDS ORDERED: METHADONE HCL 40 MG DISPERSABLE TABLET ONE (03:23)
[2018-10-17] MEDS ORDERED: METHADONE HCL 10 MG TABLET ONE (03:23)
[2018-10-17] MEDS: METHADONE 80 MG, METHADONE 30 MG PO SCH (06:36)
[2018-10-17] MEDS: GABAPENTIN 100 MG CAPSULE (FP) PO SCH ×3 (06:38→21:20)
[2018-10-17] MEDS: NICOTINE POLACRILEX 4 MG GUM BC PRN ×5 (06:38→21:21)
[2018-10-17] MEDS ORDERED: PT OWN MED DRAWER 7, Y5N ONE (08:49)
[2018-10-17] MEDS: PRENATAL VITAMINS W/ FOLIC ACID TABLET (FP) PO SCH (10:12)
[2018-10-17] MEDS: NICOTINE 21 MG/24 HOURS TOPICAL PATCH TD SCH (10:12)
[2018-10-17] MEDS: PATIENT'S OWN MEDICATION (NON-FORMULARY) (Glecaprevir/Pibrentasvir [Mavyret 100-40 Mg Tabl PO SCH (10:12)
[2018-10-17] MEDS: hydrOXYzine PAMOATE 50 MG CAPSULE (FP) PO PRN (21:20)
[2018-10-17] MEDS: MELATONIN 5 MG TABLETS PO PRN (21:20)
[2018-10-17] MEDS: THIAMINE HCL 100 MG TABLET (FP) PO SCH (21:20)
[2018-10-17] MEDS: QUEtiapine FUMARATE 100 MG TABLET (FP) PO SCH (21:20)
[2018-10-18] MEDS ORDERED: METHADONE HCL 40 MG DISPERSABLE TABLET ONE (04:06)
[2018-10-18] MEDS ORDERED: METHADONE HCL 10 MG TABLET ONE (04:06)
[2018-10-18] MEDS: GABAPENTIN 100 MG CAPSULE (FP) PO SCH ×3 (06:18→21:53)
[2018-10-18] MEDS: NICOTINE POLACRILEX 4 MG GUM BC PRN ×4 (06:18→21:53)
[2018-10-18] MEDS: METHADONE 80 MG, METHADONE 30 MG PO SCH (06:18)
[2018-10-18] MEDS ORDERED: PT OWN MED DRAWER 7, Y5N ONE ×2 (09:02→10:47)
[2018-10-18] MEDS: NICOTINE 21 MG/24 HOURS TOPICAL PATCH TD SCH (10:36)
[2018-10-18] MEDS: PATIENT'S OWN MEDICATION (NON-FORMULARY) (Glecaprevir/Pibrentasvir [Mavyret 100-40 Mg Tabl PO SCH (10:36)
[2018-10-18] MEDS: PRENATAL VITAMINS W/ FOLIC ACID TABLET (FP) PO SCH (10:36)
[2018-10-18] MEDS: MAGNESIUM HYDROX 2400MG/30ML ORAL SUSPENSION 30 ML CUP PO PRN (10:38)
[2018-10-18] MEDS: THIAMINE HCL 100 MG TABLET (FP) PO SCH (21:53)
[2018-10-18] MEDS: QUEtiapine FUMARATE 100 MG TABLET (FP) PO SCH (21:53)
[2018-10-18] MEDS: hydrOXYzine PAMOATE 50 MG CAPSULE (FP) PO PRN (21:53)
[2018-10-18] MEDS: MELATONIN 5 MG TABLETS PO PRN (21:53)
[2018-10-19] MEDS ORDERED: METHADONE HCL 40 MG DISPERSABLE TABLET ONE (04:28)
[2018-10-19] MEDS ORDERED: METHADONE HCL 10 MG TABLET ONE (04:28)
[2018-10-19] MEDS: METHADONE 80 MG, METHADONE 30 MG PO SCH (06:19)
[2018-10-19] MEDS: NICOTINE POLACRILEX 4 MG GUM BC PRN ×4 (06:20→21:39)
[2018-10-19] MEDS: GABAPENTIN 100 MG CAPSULE (FP) PO SCH ×3 (06:20→21:39)
[2018-10-19] MEDS: NICOTINE 21 MG/24 HOURS TOPICAL PATCH TD SCH (10:24)
[2018-10-19] MEDS: PRENATAL VITAMINS W/ FOLIC ACID TABLET (FP) PO SCH (10:24)
[2018-10-19] MEDS: hydrOXYzine PAMOATE 50 MG CAPSULE (FP) PO PRN ×2 (10:25→21:39)
[2018-10-19] MEDS: PATIENT'S OWN MEDICATION (NON-FORMULARY) (Glecaprevir/Pibrentasvir [Mavyret 100-40 Mg Tabl PO SCH (10:26)
[2018-10-19] MEDS ORDERED: PT OWN MED DRAWER 7, Y5N ONE (10:26)
[2018-10-19] MEDS: THIAMINE HCL 100 MG TABLET (FP) PO SCH (21:39)
[2018-10-19] MEDS: QUEtiapine FUMARATE 100 MG TABLET (FP) PO SCH (21:39)
[2018-10-19] MEDS: MELATONIN 5 MG TABLETS PO PRN (21:39)
[2018-10-20] MEDS ORDERED: METHADONE HCL 10 MG TABLET ONE (04:00)
[2018-10-20] MEDS ORDERED: METHADONE HCL 40 MG DISPERSABLE TABLET ONE (04:00)
[2018-10-20] MEDS: NICOTINE POLACRILEX 4 MG GUM BC PRN ×5 (06:15→21:29)
[2018-10-20] MEDS: METHADONE 80 MG, METHADONE 30 MG PO SCH (06:15)
[2018-10-20] MEDS: GABAPENTIN 100 MG CAPSULE (FP) PO SCH ×3 (06:15→21:28)
[2018-10-20] MEDS ORDERED: PT OWN MED DRAWER 7, Y5N ONE (08:54)
[2018-10-20] MEDS: PRENATAL VITAMINS W/ FOLIC ACID TABLET (FP) PO SCH (10:38)
[2018-10-20] MEDS: NICOTINE 21 MG/24 HOURS TOPICAL PATCH TD SCH (10:38)
[2018-10-20] MEDS: PATIENT'S OWN MEDICATION (NON-FORMULARY) (Glecaprevir/Pibrentasvir [Mavyret 100-40 Mg Tabl PO SCH (10:38)
[2018-10-20] MEDS: THIAMINE HCL 100 MG TABLET (FP) PO SCH (21:28)
[2018-10-20] MEDS: MELATONIN 5 MG TABLETS PO PRN (21:28)
[2018-10-20] MEDS: QUEtiapine FUMARATE 100 MG TABLET (FP) PO SCH (21:29)
[2018-10-20] MEDS: hydrOXYzine PAMOATE 50 MG CAPSULE (FP) PO PRN (21:29)
[2018-10-21] MEDS ORDERED: METHADONE HCL 40 MG DISPERSABLE TABLET ONE (03:17)
[2018-10-21] MEDS ORDERED: METHADONE HCL 10 MG TABLET ONE (03:17)
[2018-10-21] MEDS: METHADONE 80 MG, METHADONE 30 MG PO SCH (06:24)
[2018-10-21] MEDS: GABAPENTIN 100 MG CAPSULE (FP) PO SCH ×4 (06:24→21:16)
[2018-10-21] MEDS: NICOTINE POLACRILEX 4 MG GUM BC PRN ×4 (06:26→21:17)
[2018-10-21] MEDS: NICOTINE 21 MG/24 HOURS TOPICAL PATCH TD SCH (10:13)
[2018-10-21] MEDS: PATIENT'S OWN MEDICATION (NON-FORMULARY) (Glecaprevir/Pibrentasvir [Mavyret 100-40 Mg Tabl PO SCH (10:13)
[2018-10-21] MEDS: PRENATAL VITAMINS W/ FOLIC ACID TABLET (FP) PO SCH (10:13)
[2018-10-21] MEDS: MELATONIN 5 MG TABLETS PO PRN (21:16)
[2018-10-21] MEDS: THIAMINE HCL 100 MG TABLET (FP) PO SCH (21:16)
[2018-10-21] MEDS: hydrOXYzine PAMOATE 50 MG CAPSULE (FP) PO PRN (21:17)
[2018-10-21] MEDS: QUEtiapine FUMARATE 100 MG TABLET (FP) PO SCH (21:17)
[2018-10-22] MEDS ORDERED: METHADONE HCL 10 MG TABLET ONE (02:43)
[2018-10-22] MEDS ORDERED: METHADONE HCL 40 MG DISPERSABLE TABLET ONE (02:43)
[2018-10-22] MEDS: GABAPENTIN 100 MG CAPSULE (FP) PO SCH ×3 (06:11→21:24)
[2018-10-22] MEDS: METHADONE 80 MG, METHADONE 30 MG PO SCH (06:11)
[2018-10-22] MEDS: NICOTINE POLACRILEX 4 MG GUM BC PRN ×5 (06:11→21:25)
[2018-10-22] MEDS ORDERED: PT OWN MED DRAWER 7, Y5N ONE ×2 (08:48→10:34)
[2018-10-22] MEDS: PATIENT'S OWN MEDICATION (NON-FORMULARY) (Glecaprevir/Pibrentasvir [Mavyret 100-40 Mg Tabl PO SCH (10:09)
[2018-10-22] MEDS: MAGNESIUM HYDROX 2400MG/30ML ORAL SUSPENSION 30 ML CUP PO PRN (10:10)
[2018-10-22] MEDS: PRENATAL VITAMINS W/ FOLIC ACID TABLET (FP) PO SCH (10:10)
[2018-10-22] MEDS: NICOTINE 21 MG/24 HOURS TOPICAL PATCH TD SCH (10:10)
[2018-10-22] MEDS: THIAMINE HCL 100 MG TABLET (FP) PO SCH (21:24)
[2018-10-22] MEDS: QUEtiapine FUMARATE 100 MG TABLET (FP) PO SCH (21:24)
[2018-10-22] MEDS: MELATONIN 5 MG TABLETS PO PRN (21:24)
[2018-10-22] MEDS: hydrOXYzine PAMOATE 50 MG CAPSULE (FP) PO PRN (21:24)
[2018-10-23] MEDS ORDERED: METHADONE HCL 10 MG TABLET ONE (04:11)
[2018-10-23] MEDS ORDERED: METHADONE HCL 40 MG DISPERSABLE TABLET ONE (04:11)
[2018-10-23] MEDS: METHADONE 80 MG, METHADONE 30 MG PO SCH (06:16)
[2018-10-23] MEDS: GABAPENTIN 100 MG CAPSULE (FP) PO SCH ×3 (06:16→21:31)
[2018-10-23] MEDS: hydrOXYzine PAMOATE 50 MG CAPSULE (FP) PO PRN ×2 (10:10→21:31)
[2018-10-23] MEDS: PRENATAL VITAMINS W/ FOLIC ACID TABLET (FP) PO SCH (10:10)
[2018-10-23] MEDS: PATIENT'S OWN MEDICATION (NON-FORMULARY) (Glecaprevir/Pibrentasvir [Mavyret 100-40 Mg Tabl PO SCH (10:10)
[2018-10-23] MEDS: NICOTINE 21 MG/24 HOURS TOPICAL PATCH TD SCH (10:10)
[2018-10-23] MEDS ORDERED: PT OWN MED DRAWER 7, Y5N ONE (10:10)
[2018-10-23] MEDS: NICOTINE POLACRILEX 4 MG GUM BC PRN ×3 (10:11→21:31)
[2018-10-23] MEDS: THIAMINE HCL 100 MG TABLET (FP) PO SCH (21:31)
[2018-10-23] MEDS: QUEtiapine FUMARATE 100 MG TABLET (FP) PO SCH (21:31)
[2018-10-23] MEDS: MELATONIN 5 MG TABLETS PO PRN (21:31)
[2018-10-24] MEDS ORDERED: METHADONE HCL 10 MG TABLET ONE (04:05)
[2018-10-24] MEDS ORDERED: METHADONE HCL 40 MG DISPERSABLE TABLET ONE (04:05)
[2018-10-24] MEDS: GABAPENTIN 100 MG CAPSULE (FP) PO SCH ×3 (06:01→22:02)
[2018-10-24] MEDS: METHADONE 80 MG, METHADONE 30 MG PO SCH (06:01)
[2018-10-24] MEDS: NICOTINE POLACRILEX 4 MG GUM BC PRN ×4 (06:01→22:03)
[2018-10-24] MEDS ORDERED: PT OWN MED DRAWER 7, Y5N ONE (08:52)
[2018-10-24] MEDS: PATIENT'S OWN MEDICATION (NON-FORMULARY) (Glecaprevir/Pibrentasvir [Mavyret 100-40 Mg Tabl PO SCH (10:03)
[2018-10-24] MEDS: PRENATAL VITAMINS W/ FOLIC ACID TABLET (FP) PO SCH (10:03)
[2018-10-24] MEDS: NICOTINE 21 MG/24 HOURS TOPICAL PATCH TD SCH (10:03)
[2018-10-24] MEDS: QUEtiapine FUMARATE 100 MG TABLET (FP) PO SCH (22:02)
[2018-10-24] MEDS: THIAMINE HCL 100 MG TABLET (FP) PO SCH (22:02)
[2018-10-24] MEDS: hydrOXYzine PAMOATE 50 MG CAPSULE (FP) PO PRN (22:02)
[2018-10-24] MEDS: MELATONIN 5 MG TABLETS PO PRN (22:02)
[2018-10-25] MEDS ORDERED: METHADONE HCL 10 MG TABLET ONE (06:02)
[2018-10-25] MEDS ORDERED: METHADONE HCL 40 MG DISPERSABLE TABLET ONE (06:02)
[2018-10-25] MEDS: GABAPENTIN 100 MG CAPSULE (FP) PO SCH ×3 (06:05→21:30)
[2018-10-25] MEDS: METHADONE 80 MG, METHADONE 30 MG PO SCH (06:05)
[2018-10-25] MEDS: NICOTINE POLACRILEX 4 MG GUM BC PRN ×3 (06:05→21:31)
[2018-10-25] MEDS: PRENATAL VITAMINS W/ FOLIC ACID TABLET (FP) PO SCH (10:16)
[2018-10-25] MEDS: PATIENT'S OWN MEDICATION (NON-FORMULARY) (Glecaprevir/Pibrentasvir [Mavyret 100-40 Mg Tabl PO SCH (10:16)
[2018-10-25] MEDS: MAGNESIUM HYDROX 2400MG/30ML ORAL SUSPENSION 30 ML CUP PO PRN (10:17)
[2018-10-25] MEDS: NICOTINE 21 MG/24 HOURS TOPICAL PATCH TD SCH (10:17)
[2018-10-25] MEDS ORDERED: PT OWN MED DRAWER 7, Y5N ONE (14:12)
[2018-10-25] MEDS: THIAMINE HCL 100 MG TABLET (FP) PO SCH (21:30)
[2018-10-25] MEDS: QUEtiapine FUMARATE 100 MG TABLET (FP) PO SCH (21:30)
[2018-10-25] MEDS: MELATONIN 5 MG TABLETS PO PRN (21:31)
[2018-10-26] MEDS ORDERED: METHADONE HCL 40 MG DISPERSABLE TABLET ONE (04:36)
[2018-10-26] MEDS ORDERED: METHADONE HCL 10 MG TABLET ONE (04:36)
[2018-10-26] MEDS: NICOTINE POLACRILEX 4 MG GUM BC PRN ×3 (06:35→21:35)
[2018-10-26] MEDS: METHADONE 80 MG, METHADONE 30 MG PO SCH (06:35)
[2018-10-26] MEDS: GABAPENTIN 100 MG CAPSULE (FP) PO SCH ×3 (06:35→21:35)
[2018-10-26] MEDS ORDERED: PT OWN MED DRAWER 7, Y5N ONE ×2 (09:16→10:59)
[2018-10-26] MEDS: PATIENT'S OWN MEDICATION (NON-FORMULARY) (Glecaprevir/Pibrentasvir [Mavyret 100-40 Mg Tabl PO SCH (10:49)
[2018-10-26] MEDS: NICOTINE 21 MG/24 HOURS TOPICAL PATCH TD SCH (10:49)
[2018-10-26] MEDS: PRENATAL VITAMINS W/ FOLIC ACID TABLET (FP) PO SCH (10:50)
[2018-10-26] MEDS: MAGNESIUM HYDROX 2400MG/30ML ORAL SUSPENSION 30 ML CUP PO PRN (10:51)
[2018-10-26] MEDS: MELATONIN 5 MG TABLETS PO PRN (21:34)
[2018-10-26] MEDS: THIAMINE HCL 100 MG TABLET (FP) PO SCH (21:34)
[2018-10-26] MEDS: QUEtiapine FUMARATE 100 MG TABLET (FP) PO SCH (21:35)
[2018-10-27] MEDS ORDERED: METHADONE HCL 10 MG TABLET ONE (04:13)
[2018-10-27] MEDS ORDERED: METHADONE HCL 40 MG DISPERSABLE TABLET ONE (04:13)
[2018-10-27] MEDS: GABAPENTIN 100 MG CAPSULE (FP) PO SCH ×3 (05:50→21:41)
[2018-10-27] MEDS: METHADONE 80 MG, METHADONE 30 MG PO SCH (05:50)
[2018-10-27] MEDS: NICOTINE POLACRILEX 4 MG GUM BC PRN ×3 (05:50→21:42)
[2018-10-27] MEDS ORDERED: PT OWN MED DRAWER 7, Y5N ONE ×2 (09:05→14:39)
[2018-10-27] MEDS: NICOTINE 21 MG/24 HOURS TOPICAL PATCH TD SCH (10:01)
[2018-10-27] MEDS: PRENATAL VITAMINS W/ FOLIC ACID TABLET (FP) PO SCH (10:01)
[2018-10-27] MEDS: PATIENT'S OWN MEDICATION (NON-FORMULARY) (Glecaprevir/Pibrentasvir [Mavyret 100-40 Mg Tabl PO SCH (10:01)
[2018-10-27] MEDS: THIAMINE HCL 100 MG TABLET (FP) PO SCH (21:41)
[2018-10-27] MEDS: hydrOXYzine PAMOATE 50 MG CAPSULE (FP) PO PRN (21:41)
[2018-10-27] MEDS: MELATONIN 5 MG TABLETS PO PRN (21:41)
[2018-10-27] MEDS: QUEtiapine FUMARATE 100 MG TABLET (FP) PO SCH (21:42)
[2018-10-28] MEDS ORDERED: METHADONE HCL 10 MG TABLET ONE (04:08)
[2018-10-28] MEDS ORDERED: METHADONE HCL 40 MG DISPERSABLE TABLET ONE (04:09)
[2018-10-28] MEDS: GABAPENTIN 100 MG CAPSULE (FP) PO SCH ×3 (05:52→21:35)
[2018-10-28] MEDS: NICOTINE POLACRILEX 4 MG GUM BC PRN ×5 (05:52→21:36)
[2018-10-28] MEDS: METHADONE 80 MG, METHADONE 30 MG PO SCH (05:52)
[2018-10-28] MEDS ORDERED: PT OWN MED DRAWER 7, Y5N ONE (08:59)
[2018-10-28] MEDS: NICOTINE 21 MG/24 HOURS TOPICAL PATCH TD SCH (10:02)
[2018-10-28] MEDS: PATIENT'S OWN MEDICATION (NON-FORMULARY) (Glecaprevir/Pibrentasvir [Mavyret 100-40 Mg Tabl PO SCH (10:02)
[2018-10-28] MEDS: PRENATAL VITAMINS W/ FOLIC ACID TABLET (FP) PO SCH (10:02)
[2018-10-28] MEDS: THIAMINE HCL 100 MG TABLET (FP) PO SCH (21:35)
[2018-10-28] MEDS: QUEtiapine FUMARATE 100 MG TABLET (FP) PO SCH (21:35)
[2018-10-28] MEDS: hydrOXYzine PAMOATE 50 MG CAPSULE (FP) PO PRN (21:35)
[2018-10-28] MEDS: MELATONIN 5 MG TABLETS PO PRN (21:35)
[2018-10-29] MEDS ORDERED: METHADONE HCL 10 MG TABLET ONE (03:52)
[2018-10-29] MEDS ORDERED: METHADONE HCL 40 MG DISPERSABLE TABLET ONE (03:53)
[2018-10-29] MEDS: METHADONE 80 MG, METHADONE 30 MG PO SCH (05:54)
[2018-10-29] MEDS: GABAPENTIN 100 MG CAPSULE (FP) PO SCH ×3 (05:54→21:16)
[2018-10-29] MEDS ORDERED: PT OWN MED DRAWER 7, Y5N ONE (08:58)
[2018-10-29] MEDS: NICOTINE POLACRILEX 4 MG GUM BC PRN ×3 (09:00→21:16)
[2018-10-29] MEDS: PRENATAL VITAMINS W/ FOLIC ACID TABLET (FP) PO SCH (09:48)
[2018-10-29] MEDS: PATIENT'S OWN MEDICATION (NON-FORMULARY) (Glecaprevir/Pibrentasvir [Mavyret 100-40 Mg Tabl PO SCH (09:48)
[2018-10-29] MEDS: NICOTINE 21 MG/24 HOURS TOPICAL PATCH TD SCH (09:48)
[2018-10-29] MEDS: QUEtiapine FUMARATE 100 MG TABLET (FP) PO SCH (21:15)
[2018-10-29] MEDS: THIAMINE HCL 100 MG TABLET (FP) PO SCH (21:15)
[2018-10-29] MEDS: MELATONIN 5 MG TABLETS PO PRN (21:16)
[2018-10-30] MEDS ORDERED: METHADONE HCL 40 MG DISPERSABLE TABLET ONE (03:35)
[2018-10-30] MEDS ORDERED: METHADONE HCL 10 MG TABLET ONE (03:35)
[2018-10-30] MEDS: NICOTINE POLACRILEX 4 MG GUM BC PRN ×4 (06:26→21:30)
[2018-10-30] MEDS: METHADONE 80 MG, METHADONE 30 MG PO SCH (06:26)
[2018-10-30] MEDS: GABAPENTIN 100 MG CAPSULE (FP) PO SCH ×3 (06:26→21:29)
[2018-10-30] MEDS ORDERED: PT OWN MED DRAWER 7, Y5N ONE ×2 (08:46→12:08)
[2018-10-30] MEDS: PATIENT'S OWN MEDICATION (NON-FORMULARY) (Glecaprevir/Pibrentasvir [Mavyret 100-40 Mg Tabl PO SCH (10:10)
[2018-10-30] MEDS: PRENATAL VITAMINS W/ FOLIC ACID TABLET (FP) PO SCH (10:10)
[2018-10-30] MEDS: NICOTINE 21 MG/24 HOURS TOPICAL PATCH TD SCH (10:10)
[2018-10-30] MEDS: QUEtiapine FUMARATE 100 MG TABLET (FP) PO SCH (21:29)
[2018-10-30] MEDS: THIAMINE HCL 100 MG TABLET (FP) PO SCH (21:29)
[2018-10-30] MEDS: MELATONIN 5 MG TABLETS PO PRN (21:30)
[2018-10-31] MEDS ORDERED: METHADONE HCL 10 MG TABLET ONE (02:49)
[2018-10-31] MEDS ORDERED: METHADONE HCL 40 MG DISPERSABLE TABLET ONE (02:49)
[2018-10-31] MEDS: GABAPENTIN 100 MG CAPSULE (FP) PO SCH ×3 (05:59→21:06)
[2018-10-31] MEDS: NICOTINE POLACRILEX 4 MG GUM BC PRN ×3 (05:59→21:06)
[2018-10-31] MEDS: METHADONE 80 MG, METHADONE 30 MG PO SCH (05:59)
[2018-10-31] MEDS ORDERED: PT OWN MED DRAWER 7, Y5N ONE (08:45)
[2018-10-31] MEDS: NICOTINE 21 MG/24 HOURS TOPICAL PATCH TD SCH (09:53)
[2018-10-31] MEDS: PATIENT'S OWN MEDICATION (NON-FORMULARY) (Glecaprevir/Pibrentasvir [Mavyret 100-40 Mg Tabl PO SCH (09:53)
[2018-10-31] MEDS: PRENATAL VITAMINS W/ FOLIC ACID TABLET (FP) PO SCH (09:53)
[2018-10-31] MEDS: THIAMINE HCL 100 MG TABLET (FP) PO SCH (21:05)
[2018-10-31] MEDS: MELATONIN 5 MG TABLETS PO PRN (21:06)
[2018-10-31] MEDS: QUEtiapine FUMARATE 100 MG TABLET (FP) PO SCH (21:06)
[2018-11-01] MEDS ORDERED: METHADONE HCL 10 MG TABLET ONE (04:01)
[2018-11-01] MEDS ORDERED: METHADONE HCL 40 MG DISPERSABLE TABLET ONE (04:02)
[2018-11-01] MEDS ORDERED: METHADONE 80 MG, METHADONE 30 MG PO SCH (06:00)
[2018-11-01] MEDS: GABAPENTIN 100 MG CAPSULE (FP) PO SCH (06:16)
[2018-11-01] MEDS: NICOTINE POLACRILEX 4 MG GUM BC PRN (06:17)
--- NOTE | 2018-11-01 06:20 | PN ---
S Progress Note Note: Patient is discharged today. Script for 30 days supply of Seroquel 100 mg po HS [facility] [address] [place], [place] [id number]
[2018-11-01 07:12] VITALS: BP 126/73; PULSE 67; TEMP 97.9
[2018-11-01] MEDS ORDERED: PT OWN MED DRAWER 7, Y5N ONE (08:59)
[2018-11-01] MEDS: PATIENT'S OWN MEDICATION (NON-FORMULARY) (Glecaprevir/Pibrentasvir [Mavyret 100-40 Mg Tabl PO SCH (09:06)
[2018-11-01] MEDS: PRENATAL VITAMINS W/ FOLIC ACID TABLET (FP) PO SCH (09:06)
[2018-11-01] MEDS: NICOTINE 21 MG/24 HOURS TOPICAL PATCH TD SCH (09:07)
--- NOTE | 2018-11-01 09:56 | PN ---
S Progress Note Note: REHAB DISCHARGE NOTE: PATIENT COMPLETED REHAB TODAY AND REPORTS ACCOMPLISHING ALL REHAB GOALS. PATIENT 'S AFTERCARE SCHEDULED FOR [facility] AND HAS APPT TODAY AT 11AM. PATIENT IS MEDICALLY STABLE AND DENIES SI/HI. ENCOURAGED BY CONCRETE STONE FINISHER TO CONTINUE WITH AFTERCARE AND GROUP MEETINGS TO PREVENT RELAPSE. PATIENT ALSO ENCOURAGED TO FOLLOW UP WITH PCP WITHIN 72 HOURS OF DISCHARGE TO CONTINUE MEDICAL MANAGEMENT. Vital Signs Temperature 97.9 F 11/01/18 07:11 Pulse Rate 67 11/01/18 07:11 Respiratory Rate 18 11/01/18 07:11 Blood Pressure 126/73 11/01/18 07:11 O2 Sat by Pulse Oximetry (%) Ambulatory Orders Methadone (Detox) [Dolophine -] 110 mg PO DAILY 01/11/18 Glecaprevir/Pibrentasvir [Mavyret 100-40 mg Tablet] 3 each PO DAILY 10/11/18 Quetiapine Fumarate [Seroquel] 100 mg PO HS #30 tablet 11/01/18
== END 2018-11-01 09:25 | disposition home or self-care (01) | DRG 772 ==
LOC: YASAS 15:46 → Y3W 17:56
PROVIDERS: ADMIT Neuromusculoskeletal Medicine & OMM; ATTEND Neuromusculoskeletal Medicine & OMM
PROC: HZ42ZZZ Group Counseling for Substance Abuse Treatment, Cognitive-Behavioral (ICD-10-PCS; principal; 2018-10-11)
DX: F10.20 Alcohol dependence, uncomplicated (principal); F11.20 Opioid dependence, uncomplicated; F13.20 Sedative, hypnotic or anxiolytic dependence, uncomplicated; F14.20 Cocaine dependence, uncomplicated; F17.210 Nicotine dependence, cigarettes, uncomplicated; F90.9 Attention-deficit hyperactivity disorder, unspecified type; F19.280 Other psychoactive substance dependence with psychoactive substance-induced anxiety disorder; F19.282 Other psychoactive substance dependence with psychoactive substance-induced sleep disorder; B18.2 Chronic viral hepatitis C; Z86.69 Personal history of other diseases of the nervous system and sense organs; Z91.013 Allergy to seafood
CPT/HCPCS: 36415; 80053; 81003; 81015; 85027; 86593; 87389

== ENCOUNTER 2019-02-22 09:05 | Inpatient (IN) | payer OTHER ==
[2019-02-22 10:14] VITALS: BMI 28.7
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
[2019-02-22] MEDS ORDERED: IBUPROFEN 400 MG TABLET (FP) PO PRN (15:47)
[2019-02-22] MEDS ORDERED: MAGNESIUM HYDROX 2400MG/30ML ORAL SUSPENSION 30 ML CUP PO PRN (15:47)
[2019-02-22] MEDS ORDERED: MAGNESIUM CITRATE 300 ML BOTTLE PO PRN (15:47)
[2019-02-22] MEDS ORDERED: MELATONIN 5 MG TABLETS PO PRN (15:47)
[2019-02-22] MEDS ORDERED: hydrOXYzine HCL 25 MG TABLET (FP) PO PRN (15:47)
[2019-02-22] MEDS ORDERED: MAG HYDROX/AL HYDROX/SIMETH 30 ML UNIT-DOSE CUP PO PRN (15:47)
[2019-02-22] MEDS ORDERED: ACETAMINOPHEN 325 MG TABLET (FP) PO PRN ×2 (15:47)
[2019-02-22] MEDS ORDERED: NICOTINE POLACRILEX 2 MG GUM BUC PRN (15:47)
[2019-02-22] MEDS ORDERED: MENTHOL/PHENOL 1 EACH UD MM PRN (15:47)
[2019-02-22] MEDS ORDERED: BISMUTH SUBSALICYLATE 524 MG/30 ML UD PO PRN (15:47)
[2019-02-22] MEDS ORDERED: METHADONE HCL 10 MG TABLET (FOR DETOX USE ONLY) PO ONE (17:30)
[2019-02-22] MEDS: chlordiazePOXIDE HCL 25 MG CAPSULE PO SCH ×2 (17:50→22:03)
[2019-02-22] MEDS: THIAMINE HCL 100 MG TABLET (FP) PO SCH (22:03)
[2019-02-22] MEDS: NICOTINE POLACRILEX 4 MG GUM BUC PRN (22:05)
[2019-02-22] MEDS: CEPHALEXIN MONOHYDRATE 500 MG CAPSULE (UD) PO SCH ×2 (22:57→23:34)
[2019-02-22] MEDS: SULFAMETHOXAZOLE/TRIMETHOPRIM 800MG/160MG D.S. TABLET PO SCH (22:57)
[2019-02-23] MEDS: chlordiazePOXIDE HCL 25 MG CAPSULE PO SCH ×4 (06:39→22:05)
[2019-02-23] MEDS: NICOTINE POLACRILEX 4 MG GUM BUC PRN ×6 (06:39→22:06)
[2019-02-23] MEDS ORDERED: METHADONE HCL 5 MG TABLET (FOR DETOX USE ONLY) ONE (08:31)
[2019-02-23] MEDS ORDERED: METHADONE HCL 10 MG TABLET (FOR DETOX USE ONLY) ONE (08:31)
[2019-02-23] MEDS ORDERED: ONDANSETRON *ODT* 4 MG TABLET SL ONE (09:15)
[2019-02-23 09:45] LABS: HEMATOCRIT 36.4 % (35.4-49); HEMOGLOBIN 12.6 GM/dL (11.7-16.9); MCH 32.1 pg (25.7-33.7); MCHC 34.6 g/dl (32.0-35.9); MEAN CELL VOLUME 92.8 fl (80-96); MEAN PLT VOLUME 7.5 fl (7.5-11.1); PLATELET COUNT 358 K/MM3 (134-434); RBC 3.93 M/mm3 (4.00-5.60); RDW 12.9 % (11.9-15.9); WHITE BLOOD COUNT 5.2 K/mm3 (4.0-10.0)
[2019-02-23 09:50] LABS: ALBUMIN 3.1 g/dl (3.4-5.0); BILIRUBIN,TOTAL 0.2 mg/dL (0.2-1); BLOOD UREA NITROGEN 10.5 mg/dL (7-18); CALCIUM 8.3 mg/dL (8.5-10.1); CREATININE 0.9 mg/dL (0.55-1.3); POTASSIUM 4.2 mmol/L (3.5-5.1); TOT PROT 6.2 g/dl (6.4-8.2)
[2019-02-23] MEDS ORDERED: METHADONE (DETOX) 20 MG, METHADONE (DETOX) 5 MG PO ONE (10:00)
--- NOTE | 2019-02-23 10:41 | PN ---
S CIWA - CIWA Score Nausea/Vomitin-Mild Nausea/No Vomiting Muscle Tremors: 4-Moderate,w/Arms Extend Anxiety: 3 Agitation: 3 Paroxysmal Sweats: 1-Minimal Palms Moist Orientation: 1-Uncertain about Date Tacttile Disturbances: 1-Very Mild Itch/Numbness Auditory Disturbances: 0-None Visual Disturbances: 0-None Headache: 0-None Present CIWA-Ar Total Score: 14 BHS COWS - Scale Resting Pulse: 1= [place] 81-100 Sweatin= Chills/Flushing Restless Observation: 1= Difficult to Sit Still Pupil Size: 0= Normal to Room Light Bone or Joint Aches: 1= Mild Discomfort Runny Nose/ Eye Tearin= Nasal Congestion GI Upset > 30mins: 2= Nausea/Diarrhea Tremor Observation of Outstretched Hands: 2= Slight Tremor Visible Yawning Observation: 2= >3x During Session Anxiety or Irritability: 2=Irritable/Anxious Goose Flesh Skin: 0=Smooth Skin COWS Score: 13 S Progress Note (SOAP) Subjective: patient has long history of gerd treated with zantac discontinue motrin feeling nausea ZOFRAN 8 MG PO ONE DOSE NOW CONTINUE MONITORING SWEATING TREMOR PATIENT REPORTED HAD SEIZURE 7 DAYS AGO TREATED AT [facility] DISCHARGED NO TREATMENT FOLLOW UP Objective: 02/23/19 10:40 Vital Signs Temperature 97.5 F L 02/23/19 09:17 Pulse Rate 91 H 02/23/19 09:17 Respiratory Rate 18 02/23/19 09:17 Blood Pressure 119/79 02/23/19 09:17 O2 Sat by Pulse Oximetry (%) Laboratory Last Values WBC 5.2 K/mm3 (4.0-10.0) 02/23/19 07:00 RBC 3.93 M/mm3 (4.00-5.60) L 02/23/19 07:00 Hgb 12.6 GM/dL (11.7-16.9) 02/23/19 07:00 Hct 36.4 % (35.4-49) 02/23/19 07:00 MCV 92.8 fl (80-96) 02/23/19 07:00 MCH 32.1 pg (25.7-33.7) 02/23/19 07:00 MCHC 34.6 g/dl (32.0-35.9) 02/23/19 07:00 RDW 12.9 % (11.9-15.9) 02/23/19 07:00 Plt Count 358 K/MM3 (134-434) D 02/23/19 07:00 MPV 7.5 fl (7.5-11.1) D 02/23/19 07:00 Sodium 136 mmol/L (136-145) 02/23/19 07:00 Potassium 4.2 mmol/L (3.5-5.1) 02/23/19 07:00 Chloride 103 mmol/L (98-107) 02/23/19 07:00 Carbon Dioxide 28 mmol/L (21-32) 02/23/19 07:00 Anion Gap 6 MMOL/L (8-16) L 02/23/19 07:00 BUN 10.5 mg/dL (7-18) 02/23/19 07:00 Creatinine 0.9 mg/dL (0.55-1.3) 02/23/19 07:00 Est GFR (CKD-EPI)AfAm 131.44 02/23/19 07:00 Est GFR (CKD-EPI)NonAf 113.41 02/23/19 07:00 Random Glucose 135 mg/dL (74-106) H 02/23/19 07:00 Calcium 8.3 mg/dL (8.5-10.1) L 02/23/19 07:00 Total Bilirubin 0.2 mg/dL (0.2-1) 02/23/19 07:00 AST 14 U/L (15-37) L 02/23/19 07:00 ALT 21 U/L (13-61) 02/23/19 07:00 Alkaline Phosphatase 64 U/L (45-117) 02/23/19 07:00 Total Protein 6.2 g/dl (6.4-8.2) L 02/23/19 07:00 Albumin 3.1 g/dl (3.4-5.0) L 02/23/19 07:00 LAB NOTED Assessment: 02/23/19 10:41 ALCOHOL BENZO AND OPIATE WITHDRAWAL SX Plan: CONTINUE ALCOHOL BENZO AND OPIATE DETOX
[2019-02-23] MEDS: NICOTINE 14 MG/24 HOURS TOPICAL PATCH TD SCH (11:37)
[2019-02-23] MEDS: SULFAMETHOXAZOLE/TRIMETHOPRIM 800MG/160MG D.S. TABLET PO SCH ×2 (11:38→22:05)
[2019-02-23] MEDS: CEPHALEXIN MONOHYDRATE 500 MG CAPSULE (UD) PO SCH ×4 (11:38→22:05)
[2019-02-23] MEDS: PRENATAL VITAMINS W/ FOLIC ACID TABLET (FP) PO SCH (11:38)
[2019-02-23] MEDS: chlordiazePOXIDE HCL 25 MG CAPSULE PO PRN ×2 (13:05→19:45)
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
[2019-02-23] MEDS ORDERED: QUEtiapine FUMARATE 100 MG TABLET (FP) PO PRN (16:48)
[2019-02-23] MEDS: hydrOXYzine HCL 25 MG TABLET (FP) PO PRN (17:28)
[2019-02-23] MEDS: THIAMINE HCL 100 MG TABLET (FP) PO SCH (22:05)
[2019-02-23] MEDS: RANITIDINE HCL 150 MG TABLET (FP) PO SCH (22:05)
[2019-02-23] MEDS: QUEtiapine FUMARATE 100 MG TABLET (FP) PO SCH (22:05)
[2019-02-24] MEDS: chlordiazePOXIDE HCL 25 MG CAPSULE PO SCH ×4 (05:14→22:24)
[2019-02-24] MEDS: NICOTINE POLACRILEX 4 MG GUM BUC PRN ×6 (05:14→22:27)
[2019-02-24] MEDS ORDERED: METHADONE HCL 10 MG TABLET (FOR DETOX USE ONLY) PO ONE (10:00)
[2019-02-24] MEDS: SULFAMETHOXAZOLE/TRIMETHOPRIM 800MG/160MG D.S. TABLET PO SCH ×2 (10:04→22:25)
[2019-02-24] MEDS: CEPHALEXIN MONOHYDRATE 500 MG CAPSULE (UD) PO SCH ×4 (10:05→22:25)
[2019-02-24] MEDS: PRENATAL VITAMINS W/ FOLIC ACID TABLET (FP) PO SCH (10:05)
[2019-02-24] MEDS: RANITIDINE HCL 150 MG TABLET (FP) PO SCH ×2 (10:05→22:25)
[2019-02-24] MEDS: NICOTINE 14 MG/24 HOURS TOPICAL PATCH TD SCH (10:07)
--- NOTE | 2019-02-24 10:27 | PN ---
[facility] CIWA - CIWA Score Nausea/Vomitin Muscle Tremors: 2 Anxiety: 4-Mod. Anxious/Guarded Agitation: 3 Paroxysmal Sweats: 2 Orientation: 0-Oriented Tacttile Disturbances: 1-Very Mild Itch/Numbness Auditory Disturbances: 0-None Visual Disturbances: 0-None Headache: 0-None Present CIWA-Ar Total Score: 14 BHS COWS - Scale Resting Pulse: 1= [place] 81-100 Sweatin= Chills/Flushing Restless Observation: 1= Difficult to Sit Still Pupil Size: 0= Normal to Room Light Bone or Joint Aches: 2= Severe Diffuse Aches Runny Nose/ Eye Tearin= Runny Nose/Eyes GI Upset > 30mins: 2= Nausea/Diarrhea Tremor Observation of Outstretched Hands: 1= Tremor [place], Not Seen Yawning Observation: 0= None Anxiety or Irritability: 2=Irritable/Anxious Goose Flesh Skin: 0=Smooth Skin COWS Score: 12 S Progress Note (SOAP) Subjective: d c/o of nausea, vomiting, tremors,anxious, body aches chills Objective: 02/24/19 10:26 Vital Signs Temperature 96.6 F L 02/24/19 09:12 Pulse Rate 97 H 02/24/19 09:12 Respiratory Rate 18 02/24/19 09:12 Blood Pressure 112/71 02/24/19 09:12 O2 Sat by Pulse Oximetry (%) Laboratory Last Values WBC 5.2 K/mm3 (4.0-10.0) 02/23/19 07:00 RBC 3.93 M/mm3 (4.00-5.60) L 02/23/19 07:00 Hgb 12.6 GM/dL (11.7-16.9) 02/23/19 07:00 Hct 36.4 % (35.4-49) 02/23/19 07:00 MCV 92.8 fl (80-96) 02/23/19 07:00 MCH 32.1 pg (25.7-33.7) 02/23/19 07:00 MCHC 34.6 g/dl (32.0-35.9) 02/23/19 07:00 RDW 12.9 % (11.9-15.9) 02/23/19 07:00 Plt Count 358 K/MM3 (134-434) D 02/23/19 07:00 MPV 7.5 fl (7.5-11.1) D 02/23/19 07:00 Sodium 136 mmol/L (136-145) 02/23/19 07:00 Potassium 4.2 mmol/L (3.5-5.1) 02/23/19 07:00 Chloride 103 mmol/L (98-107) 02/23/19 07:00 Carbon Dioxide 28 mmol/L (21-32) 02/23/19 07:00 Anion Gap 6 MMOL/L (8-16) L 02/23/19 07:00 BUN 10.5 mg/dL (7-18) 02/23/19 07:00 Creatinine 0.9 mg/dL (0.55-1.3) 02/23/19 07:00 Est GFR (CKD-EPI)AfAm 131.44 02/23/19 07:00 Est GFR (CKD-EPI)NonAf 113.41 02/23/19 07:00 Random Glucose 135 mg/dL (74-106) H 02/23/19 07:00 Calcium 8.3 mg/dL (8.5-10.1) L 02/23/19 07:00 Total Bilirubin 0.2 mg/dL (0.2-1) 02/23/19 07:00 AST 14 U/L (15-37) L 02/23/19 07:00 ALT 21 U/L (13-61) 02/23/19 07:00 Alkaline Phosphatase 64 U/L (45-117) 02/23/19 07:00 Total Protein 6.2 g/dl (6.4-8.2) L 02/23/19 07:00 Albumin 3.1 g/dl (3.4-5.0) L 02/23/19 07:00 RPR Titer Nonreactive (NONREACTIVE) 02/23/19 07:00 Assessment: 02/24/19 11:37 Patient is AO x 3 no acute distress, anxious, irritable no adventitious breath sounds full ROM, ambulating in the unit Plan: gabapentin 200 mg TID increase PO fluids continue to monitor
[2019-02-24] MEDS: hydrOXYzine HCL 25 MG TABLET (FP) PO PRN ×3 (10:28→22:26)
[2019-02-24] MEDS: chlordiazePOXIDE HCL 25 MG CAPSULE PO PRN ×2 (13:22→20:12)
[2019-02-24] MEDS: GABAPENTIN 100 MG CAPSULE (FP) PO SCH ×2 (13:22→22:25)
[2019-02-24] MEDS ORDERED: GABAPENTIN 100 MG CAPSULE (FP) PO SCH (14:00)
[2019-02-24] MEDS: QUEtiapine FUMARATE 100 MG TABLET (FP) PO SCH (22:25)
[2019-02-24] MEDS: THIAMINE HCL 100 MG TABLET (FP) PO SCH (22:25)
[2019-02-25] MEDS ORDERED: chlordiazePOXIDE HCL 10 MG CAPSULE PO PRN
[2019-02-25] MEDS ORDERED: chlordiazePOXIDE HCL 10 MG CAPSULE PO SCH (05:00)
[2019-02-25] MEDS: GABAPENTIN 100 MG CAPSULE (FP) PO SCH (05:51)
[2019-02-25] MEDS: NICOTINE POLACRILEX 4 MG GUM BUC PRN (05:51)
[2019-02-25] MEDS ORDERED: METHADONE HCL 10 MG TABLET (FOR DETOX USE ONLY) ONE (08:22)
[2019-02-25] MEDS ORDERED: METHADONE HCL 5 MG TABLET (FOR DETOX USE ONLY) ONE (08:23)
[2019-02-25 09:34] VITALS: BP 126/75; PULSE 91; TEMP 96.7
[2019-02-25] MEDS ORDERED: METHADONE (DETOX) 10 MG, METHADONE (DETOX) 5 MG PO ONE (10:00)
--- NOTE | 2019-02-25 17:53 | PN ---
[facility] CIWA - CIWA Score Nausea/Vomitin-No Nausea/No Vomiting Muscle Tremors: 2 Anxiety: 4-Mod. Anxious/Guarded Agitation: 4-Moderately Restless Paroxysmal Sweats: 3 Orientation: 0-Oriented Tacttile Disturbances: 1-Very Mild Itch/Numbness Auditory Disturbances: 0-None Visual Disturbances: 1-Very Mild Sensitivity Headache: 0-None Present CIWA-Ar Total Score: 15 S COWS - Scale Resting Pulse: 1= [place] 81-100 Sweatin=Flushed/Facial Moisture Restless Observation: 1= Difficult to Sit Still Pupil Size: 0= Normal to Room Light Bone or Joint Aches: 0= None Runny Nose/ Eye Tearin= None GI Upset > 30mins: 0= None Tremor Observation of Outstretched Hands: 2= Slight Tremor Visible Yawning Observation: 1= 1-2x During Session Anxiety or Irritability: 4=Extreme Anxiety Goose Flesh Skin: 0=Smooth Skin COWS Score: 11 S Progress Note (SOAP) Subjective: Tremors, Sweating, Anxious, Restless, Body Aches. Objective: PATIENT A & O X 3, OBSERVED AMBULATING ON UNIT UNASSISTED. IN NO ACUTE DISTRESS. 02/25/19 17:55 Vital Signs Temperature 96.7 F L 02/25/19 09:33 Pulse Rate 91 H 02/25/19 09:33 Respiratory Rate 18 02/25/19 09:33 Blood Pressure 126/75 02/25/19 09:33 O2 Sat by Pulse Oximetry (%) Laboratory Tests 02/23/19 02/23/19 02/23/19 07:00 07:00 07:00 WBC 5.2 RBC 3.93 L Hgb 12.6 Hct 36.4 MCV 92.8 MCH 32.1 MCHC 34.6 RDW 12.9 Plt Count 358 D MPV 7.5 D Sodium 136 Potassium 4.2 Chloride 103 Carbon Dioxide 28 Anion Gap 6 L BUN 10.5 Creatinine 0.9 Est GFR (CKD-EPI)AfAm 131.44 Est GFR (CKD-EPI)NonAf 113.41 Random Glucose 135 H Calcium 8.3 L Total Bilirubin 0.2 AST 14 L ALT 21 Alkaline Phosphatase 64 Total Protein 6.2 L Albumin 3.1 L RPR Titer Nonreactive LABS NOTED. Assessment: 02/25/19 17:55 WITHDRAWAL SYMPTOMS. Plan: CONTINUE DETOX.
--- NOTE | 2019-02-25 18:03 | DS ---
[facility] Detox Discharge Summary Admission Date: 02/22/19 Discharge Date: 02/25/19 - History Present History: Alcohol Dependence, Cocaine Dependence, Opioid Dependence, Sedative Dependence Additional Comments: PATIENT DOES NOT WISH TO REMAIN TO COMPLETE DETOX REGIMEN, INDICATING THAT HE DOES NOT BELIEVE THAT DETOX TREATMENT AT [facility] IS BENEFICIAL FOR HIM. RISKS OF LEAVING DETOX UNIT AGAINST MEDICAL ADVICE AND PRIOR TO COMPLETION OF DETOX REGIMEN EXPLAINED TO PATIENT. PATIENT ADVISED TO GO IMMEDIATELY TO NEAREST ER SHOULD ANY INTOLERABLE WITHDRAWAL / DETOX SYMPTOMS DEVELOP AT ANY TIME. PATIENT ALSO ADVISED TO COMPLETE REMAINDER FULL COURSES OF ANTIBIOTICS (KEFLEX, BACTRIM ) PRESCRIBED FOR HIM PRIOR TO (AND CONTINUED DURING) DETOX ADMISSION AND TO FOLLOW-UP WITH FINAL FINISHER FORGING DIES SOON POSSIBLE FOR FURTHER MEDICAL EVALUATION FOR HISTORY OF CELLULITIS OF LEFT FOOT. PATIENT VERBALIZED UNDERSTANDING OF ALL INFORMATION / RECOMMENDATIONS PRESENTED TO HIM PRIOR TO DEPARTURE FROM DETOX UNIT. PATIENT LEFT DETOX UNIT IN STABLE MEDICAL CONDITION. Pertinent Past History: History Of Seizures, Hep C, Cellulitis Of Left Foot, Nicotine Dependence. - Physical Exam Results Vital Signs: Vital Signs Temperature 96.7 F L 02/25/19 09:33 Pulse Rate 91 H 02/25/19 09:33 Respiratory Rate 18 02/25/19 09:33 Blood Pressure 126/75 02/25/19 09:33 O2 Sat by Pulse Oximetry (%) Pertinent Admission Physical Exam Findings: WITHDRAWAL SYMPTOMS. Laboratory Tests 02/23/19 02/23/19 02/23/19 07:00 07:00 07:00 WBC 5.2 RBC 3.93 L Hgb 12.6 Hct 36.4 MCV 92.8 MCH 32.1 MCHC 34.6 RDW 12.9 Plt Count 358 D MPV 7.5 D Sodium 136 Potassium 4.2 Chloride 103 Carbon Dioxide 28 Anion Gap 6 L BUN 10.5 Creatinine 0.9 Est GFR (CKD-EPI)AfAm 131.44 Est GFR (CKD-EPI)NonAf 113.41 Random Glucose 135 H Calcium 8.3 L Total Bilirubin 0.2 AST 14 L ALT 21 Alkaline Phosphatase 64 Total Protein 6.2 L Albumin 3.1 L RPR Titer Nonreactive LABS NOTED. - Medication Discharge Medications: Ambulatory Orders Cephalexin [Keflex] 500 mg PO QID #28 capsule 02/22/19 Quetiapine Fumarate [Seroquel] 100 mg PO HS PRN 02/22/19 Sulfamethoxazole/Trimethoprim [Bactrim Ds -] 1 tab PO BID #14 tablet 02/22/19 Ranitidine [Zantac -] 150 mg PO BID 02/23/19 - Diagnosis (1) Opioid dependence Status: Acute Qualifiers: Substance use status: uncomplicated Qualified Code(s): F11.20 - Opioid dependence, uncomplicated (2) Alcohol dependence with uncomplicated withdrawal Status: Acute (3) Cocaine dependence Status: Chronic Qualifiers: Substance use status: uncomplicated Qualified Code(s): F14.20 - Cocaine dependence, uncomplicated (4) Nicotine dependence Status: Chronic Qualifiers: Nicotine product type: cigarettes Substance use status: uncomplicated Qualified Code(s): F17.210 - Nicotine dependence, cigarettes, uncomplicated (5) Sedative hypnotic or anxiolytic dependence Status: Acute (6) Cellulitis of left foot Status: Acute - AMA Did Patient Leave Against Medical Advice: Yes (PATIENT DID NOT WISH TO REAMIN TO COMPLETE DETOX REGIMEN.)
[2019-02-26] MEDS ORDERED: chlordiazePOXIDE HCL 10 MG CAPSULE PO SCH (05:00)
[2019-02-26] MEDS ORDERED: METHADONE HCL 10 MG TABLET (FOR DETOX USE ONLY) PO ONE (10:00)
[2019-02-27] MEDS ORDERED: chlordiazePOXIDE HCL 10 MG CAPSULE PO ONE (05:00)
[2019-02-27] MEDS ORDERED: METHADONE HCL 5 MG TABLET (FOR DETOX USE ONLY) PO ONE (06:00)
== END 2019-02-25 10:18 | disposition left against medical advice (07) | DRG 770 ==
LOC: YASAS 09:05 → Y3N 16:00
PROVIDERS: ADMIT Surgery; ATTEND Surgery
PROC: HZ2ZZZZ Detoxification Services for Substance Abuse Treatment (ICD-10-PCS; principal; 2019-02-22)
DX: F11.23 Opioid dependence with withdrawal (principal); F10.230 Alcohol dependence with withdrawal, uncomplicated; F13.230 Sedative, hypnotic or anxiolytic dependence with withdrawal, uncomplicated; F14.20 Cocaine dependence, uncomplicated; F17.210 Nicotine dependence, cigarettes, uncomplicated; L03.116 Cellulitis of left lower limb; G40.909 Epilepsy, unspecified, not intractable, without status epilepticus; R00.0 Tachycardia, unspecified; Z91.013 Allergy to seafood
CPT/HCPCS: 36415; 80053; 85027; 86593; Q0162

== ENCOUNTER 2019-02-22 12:44 | Emergency (ER) | payer OTHER ==
[2019-02-22 13:12] VITALS: BP 134/83; PULSE 93; TEMP 97.3; BMI 27.3
--- NOTE | 2019-02-22 13:18 | PDOC ---
Rapid Medical Evaluation Chief Complaint: Edema Time Seen by Provider: 02/22/19 13:17 Medical Evaluation: Allergies Allergy/AdvReac Type Severity Reaction Status Date / Time fish derived Allergy Severe Swelling Verified 02/22/19 09:45 shellfish derived Allergy Severe Swelling Verified 02/22/19 09:44 No Known Drug Allergies Allergy Verified 02/22/19 09:44 SEA FOOD Allergy Severe Swelling Uncoded 02/22/19 09:44 Vital Signs Temp Pulse Resp BP Pulse Ox 97.3 F L 93 H 18 134/83 100 02/22/19 13:10 02/22/19 13:10 02/22/19 13:10 02/22/19 13:10 02/22/19 13:10 02/22/19 13:18 I have performed a brief in-person evaluation of this patient. The patient presents with a chief complaint of: Pertinent physical exam findings: I have ordered the following: The patient will proceed to the ED for further evaluation.
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
[2019-02-22] MEDS ORDERED: CEPHALEXIN MONOHYDRATE 500 MG CAPSULE (UD) PO ONE (14:54)
[2019-02-22] MEDS ORDERED: SULFAMETHOXAZOLE/TRIMETHOPRIM 800MG/160MG D.S. TABLET PO ONE (14:55)
[2019-02-22] MEDS ORDERED: CEPHALEXIN MONOHYDRATE 500 MG CAPSULE (UD) ONE (15:07)
[2019-02-22] MEDS ORDERED: SULFAMETHOXAZOLE/TRIMETHOPRIM 800MG/160MG D.S. TABLET ONE (15:08)
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
== END 2019-02-22 15:14 | disposition home or self-care (01) ==
LOC: JER 12:44
DX: L03.114 Cellulitis of left upper limb (principal); F10.20 Alcohol dependence, uncomplicated; F13.20 Sedative, hypnotic or anxiolytic dependence, uncomplicated; F14.20 Cocaine dependence, uncomplicated; Z91.013 Allergy to seafood
CPT/HCPCS: 99282-25

== ENCOUNTER 2022-12-25 12:59 | Inpatient (IN) | payer OTHER ==
[2022-12-25 14:34] VITALS: BMI 24.6
[2022-12-25] MEDS ORDERED: LORazepam 1 MG TABLET PO PRN (15:02)
[2022-12-25] MEDS ORDERED: IBUPROFEN 400 MG TABLET (FP) PO PRN (15:02)
[2022-12-25] MEDS ORDERED: guaiFENesin 600 MG TABLET.ER (FP) PO PRN (15:02)
[2022-12-25] MEDS ORDERED: BENZONATATE 200 MG CAPSULE PO PRN (15:02)
[2022-12-25] MEDS ORDERED: NALOXONE HCL (KLOXXADO) 8 MG SPRAY NS PRN (15:02)
[2022-12-25] MEDS ORDERED: BENZOCAINE/MENTHOL (CHLORASEPTIC ) LOZENGE MM PRN (15:02)
[2022-12-25] MEDS ORDERED: ONDANSETRON *ODT* 4 MG TABLET SL PRN (15:02)
[2022-12-25] MEDS ORDERED: NALOXONE HCL 0.4 MG/ML VIAL IM PRN (15:02)
[2022-12-25] MEDS ORDERED: LOPERAMIDE HCL 2 MG CAPSULE PO PRN (15:02)
[2022-12-25] MEDS ORDERED: DICYCLOMINE HCL 10 MG CAPSULE PO PRN (15:02)
[2022-12-25] MEDS ORDERED: MAG HYDROX/AL HYDROX/SIMETH 30 ML UNIT-DOSE CUP PO PRN (15:02)
[2022-12-25] MEDS ORDERED: NICOTINE 10 MG CARTRIDGE (INHALER) IH PRN (15:02)
[2022-12-25] MEDS ORDERED: ACETAMINOPHEN 325 MG TABLET (FP) PO PRN (15:02)
[2022-12-25] MEDS ORDERED: POLYETHYLENE GLYCOL (HEALTHYLAX) 3350 17 GM PACKET PO PRN (15:02)
[2022-12-25] MEDS ORDERED: BISMUTH SUBSALICYLATE 262 MG/15 ML BTL PO PRN (15:02)
[2022-12-25] MEDS ORDERED: IBUPROFEN 600 MG TABLET (FP) PO PRN (15:02)
[2022-12-25] MEDS ORDERED: MAGNESIUM HYDROX 2400MG/30ML ORAL SUSPENSION 30 ML CUP PO PRN (15:02)
[2022-12-25] MEDS ORDERED: LORazepam 2 MG TABLET PO ONE (15:20)
[2022-12-25] MEDS ORDERED: LORazepam 2 MG TABLET ONE (15:52)
[2022-12-25] MEDS: PRENATAL VITAMINS W/ FOLIC ACID TABLET (FP) PO SCH (15:57)
[2022-12-25] MEDS: LORazepam 2 MG TABLET PO SCH ×2 (21:58→22:28)
[2022-12-25] MEDS: MELATONIN 5 MG TABLETS PO SCH (22:28)
[2022-12-25] MEDS: THIAMINE HCL 100 MG TABLET (FP) PO SCH (22:29)
[2022-12-25] MEDS: METHOCARBAMOL 500 MG TABLET PO PRN (22:29)
[2022-12-25] MEDS: NICOTINE POLACRILEX 4 MG GUM BUC PRN (22:30)
[2022-12-26] MEDS: LORazepam 2 MG TABLET PO SCH ×4 (05:25→22:47)
[2022-12-26] MEDS: METHOCARBAMOL 500 MG TABLET PO PRN (05:26)
[2022-12-26] MEDS: NICOTINE POLACRILEX 4 MG GUM BUC PRN ×5 (05:27→22:48)
[2022-12-26] MEDS ORDERED: methaDONE HCL 10 MG TABLET PO ONE (08:54)
[2022-12-26] MEDS ORDERED: methaDONE 80 MG, methaDONE 20 MG PO ONE (09:30)
[2022-12-26] MEDS: PRENATAL VITAMINS W/ FOLIC ACID TABLET (FP) PO SCH (10:21)
[2022-12-26] MEDS: hydrOXYzine PAMOATE 25 MG CAPSULE (FP) PO PRN (10:22)
[2022-12-26 11:00] LABS: HEMATOCRIT 35.6 % (35.4-49); HEMOGLOBIN 12.5 GM/dL (11.7-16.9); MCH 31.7 pg (25.7-33.7); MCHC 35.2 g/dl (32.0-35.9); MEAN CELL VOLUME 89.9 fl (80-96); MEAN PLT VOLUME 7.9 fl (7.5-11.1); PLATELET COUNT 341 10^3/uL (134-434); POTASSIUM 4.2 mmol/L (3.5-5.1); RBC 3.95 M/mm3 (4.00-5.60); RDW 14.5 % (11.9-15.9); WHITE BLOOD COUNT 5.3 K/mm3 (4.0-10.0)
[2022-12-26 11:09] LABS: ALBUMIN 2.9 g/dl (3.4-5.0); BLOOD UREA NITROGEN 10.3 mg/dL (7-18)
[2022-12-26 11:11] LABS: CALCIUM 8.8 mg/dL (8.5-10.1)
[2022-12-26 11:12] LABS: CREATININE 0.8 mg/dL (0.55-1.3)
[2022-12-26 11:13] LABS: TOT PROT 6.1 g/dl (6.4-8.2)
[2022-12-26 11:14] LABS: BILIRUBIN,TOTAL 0.3 mg/dL (0.2-1)
[2022-12-26] MEDS: LACTULOSE 20 GM/30 ML UDC (FOR ORAL USE ONLY) PO SCH ×2 (14:42→22:48)
[2022-12-26] MEDS: THIAMINE HCL 100 MG TABLET (FP) PO SCH (22:47)
[2022-12-26] MEDS: MELATONIN 5 MG TABLETS PO SCH (22:47)
[2022-12-26] MEDS: QUEtiapine FUMARATE 100 MG TABLET (FP) PO SCH (22:48)
[2022-12-27] MEDS: NICOTINE POLACRILEX 4 MG GUM BUC PRN ×5 (03:09→22:44)
[2022-12-27] MEDS: LACTULOSE 20 GM/30 ML UDC (FOR ORAL USE ONLY) PO SCH ×3 (05:53→22:43)
[2022-12-27] MEDS: LORazepam 1 MG TABLET PO SCH ×4 (05:53→22:43)
[2022-12-27] MEDS: methaDONE 80 MG, methaDONE 20 MG PO SCH (05:53)
[2022-12-27] MEDS ORDERED: methaDONE HCL 10 MG TABLET PO SCH (06:00)
[2022-12-27] MEDS: hydrOXYzine PAMOATE 25 MG CAPSULE (FP) PO PRN ×2 (08:35→17:24)
[2022-12-27] MEDS: PRENATAL VITAMINS W/ FOLIC ACID TABLET (FP) PO SCH (10:32)
[2022-12-27] MEDS: METHOCARBAMOL 500 MG TABLET PO PRN (10:36)
[2022-12-27] MEDS: QUEtiapine FUMARATE 100 MG TABLET (FP) PO SCH (22:43)
[2022-12-27] MEDS: MELATONIN 5 MG TABLETS PO SCH (23:19)
[2022-12-27] MEDS: THIAMINE HCL 100 MG TABLET (FP) PO SCH (23:19)
[2022-12-28] MEDS ORDERED: LORazepam 0.5 MG TABLET PO PRN
[2022-12-28] MEDS: LORazepam 0.5 MG TABLET PO SCH ×4 (05:35→22:14)
[2022-12-28] MEDS: methaDONE 80 MG, methaDONE 20 MG PO SCH (05:49)
[2022-12-28] MEDS: LACTULOSE 20 GM/30 ML UDC (FOR ORAL USE ONLY) PO SCH ×3 (05:49→22:15)
[2022-12-28] MEDS: PRENATAL VITAMINS W/ FOLIC ACID TABLET (FP) PO SCH (10:39)
[2022-12-28] MEDS: METHOCARBAMOL 500 MG TABLET PO PRN ×2 (10:40→17:19)
[2022-12-28] MEDS: hydrOXYzine PAMOATE 25 MG CAPSULE (FP) PO PRN (10:40)
[2022-12-28] MEDS: NICOTINE POLACRILEX 4 MG GUM BUC PRN ×3 (10:42→22:17)
[2022-12-28] MEDS: QUEtiapine FUMARATE 100 MG TABLET (FP) PO SCH (22:14)
[2022-12-28] MEDS: THIAMINE HCL 100 MG TABLET (FP) PO SCH (22:14)
[2022-12-28] MEDS: MELATONIN 5 MG TABLETS PO SCH (22:15)
[2022-12-29] MEDS: NICOTINE POLACRILEX 4 MG GUM BUC PRN ×3 (00:44→09:21)
[2022-12-29] MEDS ORDERED: LORazepam 0.5 MG TABLET PO ONE (05:00)
[2022-12-29] MEDS: methaDONE 80 MG, methaDONE 20 MG PO SCH (05:31)
[2022-12-29] MEDS: LACTULOSE 20 GM/30 ML UDC (FOR ORAL USE ONLY) PO SCH (05:32)
[2022-12-29 09:41] VITALS: BP 109/61; PULSE 87; RESP 18; TEMP 96.8
[2022-12-29] MEDS: PRENATAL VITAMINS W/ FOLIC ACID TABLET (FP) PO SCH (10:39)
== END 2022-12-29 11:25 | disposition other institution (70) | DRG 773 ==
LOC: YASAS 12:59 → Y6N 15:15
PROVIDERS: ADMIT Allergy & Immunology; ATTEND Surgery
PROC: HZ2ZZZZ Detoxification Services for Substance Abuse Treatment (ICD-10-PCS; principal; 2022-12-25)
DX: F10.230 Alcohol dependence with withdrawal, uncomplicated (principal); F13.230 Sedative, hypnotic or anxiolytic dependence with withdrawal, uncomplicated; F11.20 Opioid dependence, uncomplicated; F14.20 Cocaine dependence, uncomplicated; F15.20 Other stimulant dependence, uncomplicated; F17.210 Nicotine dependence, cigarettes, uncomplicated; F19.280 Other psychoactive substance dependence with psychoactive substance-induced anxiety disorder; F19.282 Other psychoactive substance dependence with psychoactive substance-induced sleep disorder; F19.24 Other psychoactive substance dependence with psychoactive substance-induced mood disorder; E72.20 Disorder of urea cycle metabolism, unspecified; R63.4 Abnormal weight loss; Z68.24 Body mass index [BMI] 24.0-24.9, adult; Z86.69 Personal history of other diseases of the nervous system and sense organs; Z86.19 Personal history of other infectious and parasitic diseases
CPT/HCPCS: 36415; 80053; 82140; 85027; 86780; 87811; C9803-CS; U0003; U0005

== ENCOUNTER 2022-12-29 11:10 | Inpatient (IN) | payer OTHER ==
[2022-12-29] MEDS ORDERED: NICOTINE 10 MG CARTRIDGE (INHALER) IH PRN (13:57)
[2022-12-29] MEDS ORDERED: LOPERAMIDE HCL 2 MG CAPSULE PO PRN (13:57)
[2022-12-29] MEDS ORDERED: IBUPROFEN 600 MG TABLET (FP) PO PRN (13:57)
[2022-12-29] MEDS ORDERED: NALOXONE HCL 0.4 MG/ML VIAL IVPUSH PRN (13:57)
[2022-12-29] MEDS ORDERED: AMMONIUM LACTATE 12% LOTION 225 GM BOTTLE TP PRN (13:57)
[2022-12-29] MEDS ORDERED: POLYETHYLENE GLYCOL (HEALTHYLAX) 3350 17 GM PACKET PO PRN (13:57)
[2022-12-29] MEDS ORDERED: guaiFENesin 600 MG TABLET.ER (FP) PO PRN (13:57)
[2022-12-29] MEDS ORDERED: MAG HYDROX/AL HYDROX/SIMETH 30 ML UNIT-DOSE CUP PO PRN (13:57)
[2022-12-29] MEDS ORDERED: COLLOIDAL OATMEAL 1 BAR EACH TP PRN (13:57)
[2022-12-29] MEDS ORDERED: BENZOCAINE/MENTHOL (CHLORASEPTIC ) LOZENGE MM PRN (13:57)
[2022-12-29] MEDS ORDERED: NICOTINE 14 MG/24 HOURS TOPICAL PATCH TD PRN (13:57)
[2022-12-29] MEDS ORDERED: ACETAMINOPHEN 325 MG TABLET (FP) PO PRN (13:57)
[2022-12-29] MEDS ORDERED: NALOXONE HCL (KLOXXADO) 8 MG SPRAY NS PRN (13:57)
[2022-12-29] MEDS ORDERED: IBUPROFEN 400 MG TABLET (FP) PO PRN (13:57)
[2022-12-29] MEDS ORDERED: MAGNESIUM HYDROX 2400MG/30ML ORAL SUSPENSION 30 ML CUP PO PRN (13:57)
[2022-12-29] MEDS ORDERED: BENZONATATE 200 MG CAPSULE PO PRN (13:57)
[2022-12-29] MEDS: QUEtiapine FUMARATE 100 MG TABLET (FP) PO SCH (21:33)
[2022-12-29] MEDS: METHOCARBAMOL 500 MG TABLET PO PRN (21:33)
[2022-12-29] MEDS: MELATONIN 5 MG TABLETS PO SCH (21:33)
[2022-12-29] MEDS: THIAMINE HCL 100 MG TABLET (FP) PO SCH (21:33)
[2022-12-29] MEDS: hydrOXYzine PAMOATE 25 MG CAPSULE (FP) PO PRN (21:33)
[2022-12-29] MEDS: LACTULOSE 20 GM/30 ML UDC (FOR ORAL USE ONLY) PO SCH (21:34)
[2022-12-30] MEDS: methaDONE 80 MG, methaDONE 20 MG PO SCH (06:32)
[2022-12-30] MEDS: LACTULOSE 20 GM/30 ML UDC (FOR ORAL USE ONLY) PO SCH ×3 (06:33→21:11)
[2022-12-30] MEDS ORDERED: NICOTINE POLACRILEX 2 MG GUM ONE (06:36)
[2022-12-30] MEDS ORDERED: methaDONE HCL 40 MG DISPERSABLE TABLET PO SCH (10:00)
[2022-12-30] MEDS: PRENATAL VITAMINS W/ FOLIC ACID TABLET (FP) PO SCH (10:10)
[2022-12-30] MEDS: NICOTINE POLACRILEX 2 MG GUM BUC PRN (10:11)
[2022-12-30 16:50] LABS: HIV INTERPRETATION NEGATIVE (NEGATIVE)
[2022-12-30] MEDS: THIAMINE HCL 100 MG TABLET (FP) PO SCH (21:10)
[2022-12-30] MEDS: MELATONIN 5 MG TABLETS PO SCH (21:10)
[2022-12-30] MEDS: QUEtiapine FUMARATE 100 MG TABLET (FP) PO SCH (21:11)
[2022-12-30] MEDS: METHOCARBAMOL 500 MG TABLET PO PRN (21:11)
[2022-12-31] MEDS: methaDONE 80 MG, methaDONE 20 MG PO SCH (06:07)
[2022-12-31] MEDS: LACTULOSE 20 GM/30 ML UDC (FOR ORAL USE ONLY) PO SCH ×3 (06:07→21:13)
[2022-12-31] MEDS: NICOTINE POLACRILEX 2 MG GUM BUC PRN ×5 (06:08→21:14)
[2022-12-31] MEDS: PRENATAL VITAMINS W/ FOLIC ACID TABLET (FP) PO SCH (09:46)
[2022-12-31] MEDS: MELATONIN 5 MG TABLETS PO SCH (21:12)
[2022-12-31] MEDS: THIAMINE HCL 100 MG TABLET (FP) PO SCH (21:12)
[2022-12-31] MEDS: QUEtiapine FUMARATE 100 MG TABLET (FP) PO SCH (21:13)
[2023-01-01] MEDS: methaDONE 80 MG, methaDONE 20 MG PO SCH (06:18)
[2023-01-01] MEDS: NICOTINE POLACRILEX 2 MG GUM BUC PRN ×3 (06:18→13:50)
[2023-01-01] MEDS: LACTULOSE 20 GM/30 ML UDC (FOR ORAL USE ONLY) PO SCH ×3 (06:18→21:09)
[2023-01-01] MEDS: PRENATAL VITAMINS W/ FOLIC ACID TABLET (FP) PO SCH (10:04)
[2023-01-01] MEDS: MELATONIN 5 MG TABLETS PO SCH (21:08)
[2023-01-01] MEDS: THIAMINE HCL 100 MG TABLET (FP) PO SCH (21:08)
[2023-01-01] MEDS: QUEtiapine FUMARATE 100 MG TABLET (FP) PO SCH (21:08)
[2023-01-01] MEDS: METHOCARBAMOL 500 MG TABLET PO PRN (21:08)
[2023-01-02] MEDS: methaDONE 80 MG, methaDONE 20 MG PO SCH (06:07)
[2023-01-02] MEDS: LACTULOSE 20 GM/30 ML UDC (FOR ORAL USE ONLY) PO SCH ×3 (06:08→21:33)
[2023-01-02] MEDS: NICOTINE POLACRILEX 2 MG GUM BUC PRN ×2 (07:55→21:35)
[2023-01-02] MEDS: PRENATAL VITAMINS W/ FOLIC ACID TABLET (FP) PO SCH (09:42)
[2023-01-02] MEDS: QUEtiapine FUMARATE 100 MG TABLET (FP) PO SCH (21:32)
[2023-01-02] MEDS: THIAMINE HCL 100 MG TABLET (FP) PO SCH (21:32)
[2023-01-02] MEDS: METHOCARBAMOL 500 MG TABLET PO PRN (21:32)
[2023-01-02] MEDS: MELATONIN 5 MG TABLETS PO SCH (21:33)
[2023-01-03] MEDS: methaDONE 80 MG, methaDONE 20 MG PO SCH (06:33)
[2023-01-03] MEDS: LACTULOSE 20 GM/30 ML UDC (FOR ORAL USE ONLY) PO SCH ×3 (06:35→21:03)
[2023-01-03] MEDS: NICOTINE POLACRILEX 2 MG GUM BUC PRN ×3 (06:35→21:05)
[2023-01-03] MEDS: PRENATAL VITAMINS W/ FOLIC ACID TABLET (FP) PO SCH (09:44)
[2023-01-03] MEDS: THIAMINE HCL 100 MG TABLET (FP) PO SCH (21:02)
[2023-01-03] MEDS: MELATONIN 5 MG TABLETS PO SCH (21:02)
[2023-01-03] MEDS: QUEtiapine FUMARATE 100 MG TABLET (FP) PO SCH (21:03)
[2023-01-03] MEDS: hydrOXYzine PAMOATE 25 MG CAPSULE (FP) PO PRN (21:03)
[2023-01-04] MEDS: LACTULOSE 20 GM/30 ML UDC (FOR ORAL USE ONLY) PO SCH ×3 (06:19→21:21)
[2023-01-04] MEDS: methaDONE 80 MG, methaDONE 20 MG PO SCH (06:19)
[2023-01-04] MEDS: NICOTINE POLACRILEX 2 MG GUM BUC PRN ×3 (06:19→21:22)
[2023-01-04] MEDS: PRENATAL VITAMINS W/ FOLIC ACID TABLET (FP) PO SCH (09:21)
[2023-01-04] MEDS: MELATONIN 5 MG TABLETS PO SCH (21:21)
[2023-01-04] MEDS: THIAMINE HCL 100 MG TABLET (FP) PO SCH (21:21)
[2023-01-04] MEDS: QUEtiapine FUMARATE 100 MG TABLET (FP) PO SCH (21:21)
[2023-01-05] MEDS: LACTULOSE 20 GM/30 ML UDC (FOR ORAL USE ONLY) PO SCH (06:30)
[2023-01-05] MEDS: methaDONE 80 MG, methaDONE 20 MG PO SCH (06:31)
[2023-01-05] MEDS: NICOTINE POLACRILEX 2 MG GUM BUC PRN ×3 (06:33→21:22)
[2023-01-05] MEDS: PRENATAL VITAMINS W/ FOLIC ACID TABLET (FP) PO SCH (10:34)
[2023-01-05] MEDS: QUEtiapine FUMARATE 100 MG TABLET (FP) PO SCH (21:22)
[2023-01-05] MEDS: MELATONIN 5 MG TABLETS PO SCH (21:22)
[2023-01-05] MEDS: THIAMINE HCL 100 MG TABLET (FP) PO SCH (21:22)
[2023-01-06] MEDS: methaDONE 80 MG, methaDONE 20 MG PO SCH (06:04)
[2023-01-06] MEDS: NICOTINE POLACRILEX 2 MG GUM BUC PRN ×3 (06:05→21:30)
[2023-01-06] MEDS: PRENATAL VITAMINS W/ FOLIC ACID TABLET (FP) PO SCH (09:23)
[2023-01-06] MEDS: TOLNAFTATE 1% CREAM 15 GM TUBE TP SCH ×2 (14:17→23:01)
[2023-01-06] MEDS: QUEtiapine FUMARATE 100 MG TABLET (FP) PO SCH (21:29)
[2023-01-06] MEDS: THIAMINE HCL 100 MG TABLET (FP) PO SCH (21:29)
[2023-01-06] MEDS: MELATONIN 5 MG TABLETS PO SCH (23:01)
[2023-01-07] MEDS: methaDONE 80 MG, methaDONE 20 MG PO SCH (06:12)
[2023-01-07] MEDS: NICOTINE POLACRILEX 2 MG GUM BUC PRN ×3 (06:13→21:18)
[2023-01-07] MEDS: TOLNAFTATE 1% CREAM 15 GM TUBE TP SCH ×2 (10:03→21:18)
[2023-01-07] MEDS: PRENATAL VITAMINS W/ FOLIC ACID TABLET (FP) PO SCH (10:03)
[2023-01-07] MEDS: THIAMINE HCL 100 MG TABLET (FP) PO SCH (21:17)
[2023-01-07] MEDS: MELATONIN 5 MG TABLETS PO SCH (21:17)
[2023-01-07] MEDS: QUEtiapine FUMARATE 100 MG TABLET (FP) PO SCH (21:18)
[2023-01-08] MEDS: methaDONE 80 MG, methaDONE 20 MG PO SCH (06:06)
[2023-01-08] MEDS: NICOTINE POLACRILEX 2 MG GUM BUC PRN ×2 (06:08→09:35)
[2023-01-08] MEDS: TOLNAFTATE 1% CREAM 15 GM TUBE TP SCH ×2 (09:33→21:22)
[2023-01-08] MEDS: PRENATAL VITAMINS W/ FOLIC ACID TABLET (FP) PO SCH (09:36)
[2023-01-08] MEDS: MELATONIN 5 MG TABLETS PO SCH (21:22)
[2023-01-08] MEDS: QUEtiapine FUMARATE 100 MG TABLET (FP) PO SCH (21:22)
[2023-01-08] MEDS: THIAMINE HCL 100 MG TABLET (FP) PO SCH (21:22)
[2023-01-09] MEDS: methaDONE 80 MG, methaDONE 20 MG PO SCH (06:11)
[2023-01-09] MEDS: NICOTINE POLACRILEX 2 MG GUM BUC PRN ×3 (06:12→21:13)
[2023-01-09] MEDS: PRENATAL VITAMINS W/ FOLIC ACID TABLET (FP) PO SCH (09:54)
[2023-01-09] MEDS: TOLNAFTATE 1% CREAM 15 GM TUBE TP SCH ×2 (09:55→21:13)
[2023-01-09] MEDS: THIAMINE HCL 100 MG TABLET (FP) PO SCH (21:12)
[2023-01-09] MEDS: QUEtiapine FUMARATE 100 MG TABLET (FP) PO SCH (21:12)
[2023-01-09] MEDS: MELATONIN 5 MG TABLETS PO SCH (21:12)
[2023-01-10] MEDS: methaDONE 80 MG, methaDONE 20 MG PO SCH (06:11)
[2023-01-10] MEDS: NICOTINE POLACRILEX 2 MG GUM BUC PRN ×3 (06:12→21:27)
[2023-01-10] MEDS: PRENATAL VITAMINS W/ FOLIC ACID TABLET (FP) PO SCH (09:33)
[2023-01-10] MEDS: TOLNAFTATE 1% CREAM 15 GM TUBE TP SCH ×2 (09:37→21:25)
[2023-01-10] MEDS: THIAMINE HCL 100 MG TABLET (FP) PO SCH (21:25)
[2023-01-10] MEDS: QUEtiapine FUMARATE 100 MG TABLET (FP) PO SCH (21:25)
[2023-01-10] MEDS: MELATONIN 5 MG TABLETS PO SCH (21:25)
[2023-01-11] MEDS: methaDONE 80 MG, methaDONE 20 MG PO SCH (06:11)
[2023-01-11] MEDS: NICOTINE POLACRILEX 2 MG GUM BUC PRN ×3 (06:11→21:29)
[2023-01-11] MEDS: PRENATAL VITAMINS W/ FOLIC ACID TABLET (FP) PO SCH (09:38)
[2023-01-11] MEDS: TOLNAFTATE 1% CREAM 15 GM TUBE TP SCH ×2 (09:38→21:28)
[2023-01-11] MEDS: QUEtiapine FUMARATE 100 MG TABLET (FP) PO SCH (21:27)
[2023-01-11] MEDS: MELATONIN 5 MG TABLETS PO SCH (21:27)
[2023-01-11] MEDS: THIAMINE HCL 100 MG TABLET (FP) PO SCH (21:28)
[2023-01-12] MEDS: methaDONE 80 MG, methaDONE 20 MG PO SCH (06:00)
[2023-01-12] MEDS: NICOTINE POLACRILEX 2 MG GUM BUC PRN ×3 (06:00→21:17)
[2023-01-12] MEDS: PRENATAL VITAMINS W/ FOLIC ACID TABLET (FP) PO SCH (10:08)
[2023-01-12] MEDS: TOLNAFTATE 1% CREAM 15 GM TUBE TP SCH ×2 (10:09→21:17)
[2023-01-12] MEDS: QUEtiapine FUMARATE 100 MG TABLET (FP) PO SCH (21:17)
[2023-01-12] MEDS: THIAMINE HCL 100 MG TABLET (FP) PO SCH (21:17)
[2023-01-12] MEDS: MELATONIN 5 MG TABLETS PO SCH (21:17)
[2023-01-13] MEDS: methaDONE 80 MG, methaDONE 20 MG PO SCH (06:11)
[2023-01-13] MEDS: NICOTINE POLACRILEX 2 MG GUM BUC PRN ×3 (06:12→12:58)
[2023-01-13] MEDS: PRENATAL VITAMINS W/ FOLIC ACID TABLET (FP) PO SCH (09:19)
[2023-01-13] MEDS: TOLNAFTATE 1% CREAM 15 GM TUBE TP SCH ×2 (11:00→23:04)
[2023-01-13] MEDS: MELATONIN 5 MG TABLETS PO SCH (23:04)
[2023-01-13] MEDS: QUEtiapine FUMARATE 100 MG TABLET (FP) PO SCH (23:04)
[2023-01-13] MEDS: THIAMINE HCL 100 MG TABLET (FP) PO SCH (23:04)
[2023-01-14] MEDS: methaDONE 80 MG, methaDONE 20 MG PO SCH (06:07)
[2023-01-14] MEDS: NICOTINE POLACRILEX 2 MG GUM BUC PRN ×3 (06:09→21:09)
[2023-01-14] MEDS: PRENATAL VITAMINS W/ FOLIC ACID TABLET (FP) PO SCH (10:06)
[2023-01-14] MEDS: TOLNAFTATE 1% CREAM 15 GM TUBE TP SCH ×2 (10:06→21:37)
[2023-01-14] MEDS: THIAMINE HCL 100 MG TABLET (FP) PO SCH (21:07)
[2023-01-14] MEDS: QUEtiapine FUMARATE 100 MG TABLET (FP) PO SCH (21:07)
[2023-01-14] MEDS: MELATONIN 5 MG TABLETS PO SCH (21:07)
[2023-01-15] MEDS: methaDONE 80 MG, methaDONE 20 MG PO SCH (05:56)
[2023-01-15] MEDS: NICOTINE POLACRILEX 2 MG GUM BUC PRN ×3 (05:58→21:29)
[2023-01-15] MEDS: PRENATAL VITAMINS W/ FOLIC ACID TABLET (FP) PO SCH (09:13)
[2023-01-15] MEDS: TOLNAFTATE 1% CREAM 15 GM TUBE TP SCH ×2 (09:13→21:29)
[2023-01-15] MEDS: MELATONIN 5 MG TABLETS PO SCH (21:29)
[2023-01-15] MEDS: THIAMINE HCL 100 MG TABLET (FP) PO SCH (21:29)
[2023-01-15] MEDS: QUEtiapine FUMARATE 100 MG TABLET (FP) PO SCH (21:29)
[2023-01-16] MEDS: NICOTINE POLACRILEX 2 MG GUM BUC PRN ×3 (06:02→21:32)
[2023-01-16] MEDS: methaDONE 80 MG, methaDONE 20 MG PO SCH (06:02)
[2023-01-16] MEDS: TOLNAFTATE 1% CREAM 15 GM TUBE TP SCH ×2 (09:53→22:08)
[2023-01-16] MEDS: PRENATAL VITAMINS W/ FOLIC ACID TABLET (FP) PO SCH (09:53)
[2023-01-16] MEDS: hydrOXYzine PAMOATE 25 MG CAPSULE (FP) PO PRN (21:30)
[2023-01-16] MEDS: THIAMINE HCL 100 MG TABLET (FP) PO SCH (21:30)
[2023-01-16] MEDS: QUEtiapine FUMARATE 100 MG TABLET (FP) PO SCH (21:30)
[2023-01-16] MEDS: MELATONIN 5 MG TABLETS PO SCH (21:31)
[2023-01-17] MEDS: methaDONE 80 MG, methaDONE 20 MG PO SCH (06:06)
[2023-01-17] MEDS: NICOTINE POLACRILEX 2 MG GUM BUC PRN ×3 (06:07→21:10)
[2023-01-17] MEDS: PRENATAL VITAMINS W/ FOLIC ACID TABLET (FP) PO SCH (09:28)
[2023-01-17] MEDS: TOLNAFTATE 1% CREAM 15 GM TUBE TP SCH ×2 (09:28→21:31)
[2023-01-17] MEDS: THIAMINE HCL 100 MG TABLET (FP) PO SCH (21:09)
[2023-01-17] MEDS: MELATONIN 5 MG TABLETS PO SCH (21:09)
[2023-01-17] MEDS: QUEtiapine FUMARATE 100 MG TABLET (FP) PO SCH (21:09)
[2023-01-18] MEDS: methaDONE 80 MG, methaDONE 20 MG PO SCH (06:10)
[2023-01-18] MEDS: NICOTINE POLACRILEX 2 MG GUM BUC PRN ×3 (06:13→21:31)
[2023-01-18] MEDS: PRENATAL VITAMINS W/ FOLIC ACID TABLET (FP) PO SCH (09:38)
[2023-01-18] MEDS: TOLNAFTATE 1% CREAM 15 GM TUBE TP SCH ×2 (09:38→21:31)
[2023-01-18] MEDS: MELATONIN 5 MG TABLETS PO SCH (21:29)
[2023-01-18] MEDS: THIAMINE HCL 100 MG TABLET (FP) PO SCH (21:29)
[2023-01-18] MEDS: QUEtiapine FUMARATE 100 MG TABLET (FP) PO SCH (21:29)
[2023-01-19] MEDS: methaDONE 80 MG, methaDONE 20 MG PO SCH (06:06)
[2023-01-19] MEDS: NICOTINE POLACRILEX 2 MG GUM BUC PRN ×4 (06:08→21:26)
[2023-01-19] MEDS: PRENATAL VITAMINS W/ FOLIC ACID TABLET (FP) PO SCH (09:54)
[2023-01-19] MEDS: TOLNAFTATE 1% CREAM 15 GM TUBE TP SCH ×2 (09:54→21:58)
[2023-01-19] MEDS: QUEtiapine FUMARATE 100 MG TABLET (FP) PO SCH (21:25)
[2023-01-19] MEDS: THIAMINE HCL 100 MG TABLET (FP) PO SCH (21:25)
[2023-01-19] MEDS: MELATONIN 5 MG TABLETS PO SCH (21:25)
[2023-01-20] MEDS: methaDONE 80 MG, methaDONE 20 MG PO SCH (06:00)
[2023-01-20] MEDS: NICOTINE POLACRILEX 2 MG GUM BUC PRN ×2 (06:01→09:18)
[2023-01-20 07:11] VITALS: RESP 16
[2023-01-20] MEDS: TOLNAFTATE 1% CREAM 15 GM TUBE TP SCH ×2 (09:17→21:19)
[2023-01-20] MEDS: PRENATAL VITAMINS W/ FOLIC ACID TABLET (FP) PO SCH (09:17)
[2023-01-20] MEDS: MELATONIN 5 MG TABLETS PO SCH (21:18)
[2023-01-20] MEDS: THIAMINE HCL 100 MG TABLET (FP) PO SCH (21:18)
[2023-01-20] MEDS: QUEtiapine FUMARATE 100 MG TABLET (FP) PO SCH (21:18)
[2023-01-21] MEDS: methaDONE 80 MG, methaDONE 20 MG PO SCH (06:04)
[2023-01-21 06:41] VITALS: BP 131/86; PULSE 78; TEMP 97.8
[2023-01-21] MEDS ORDERED: NICOTINE POLACRILEX 4 MG GUM BUC PRN (08:03)
[2023-01-21] MEDS: TOLNAFTATE 1% CREAM 15 GM TUBE TP SCH (09:00)
[2023-01-21] MEDS: PRENATAL VITAMINS W/ FOLIC ACID TABLET (FP) PO SCH (09:01)
== END 2023-01-21 09:22 | disposition home or self-care (01) | DRG 772 ==
LOC: YASAS 11:10 → Y3E 11:11
PROVIDERS: ADMIT Allergy & Immunology; ATTEND Psychiatry & Neurology Pain Medicine
PROC: HZ42ZZZ Group Counseling for Substance Abuse Treatment, Cognitive-Behavioral (ICD-10-PCS; principal; 2022-12-29)
DX: F10.20 Alcohol dependence, uncomplicated (principal); F11.20 Opioid dependence, uncomplicated; F14.20 Cocaine dependence, uncomplicated; F15.20 Other stimulant dependence, uncomplicated; F13.20 Sedative, hypnotic or anxiolytic dependence, uncomplicated; F12.20 Cannabis dependence, uncomplicated; F17.210 Nicotine dependence, cigarettes, uncomplicated; F19.282 Other psychoactive substance dependence with psychoactive substance-induced sleep disorder; F19.280 Other psychoactive substance dependence with psychoactive substance-induced anxiety disorder; F19.24 Other psychoactive substance dependence with psychoactive substance-induced mood disorder; F41.1 Generalized anxiety disorder; F90.9 Attention-deficit hyperactivity disorder, unspecified type; B35.1 Tinea unguium; R79.89 Other specified abnormal findings of blood chemistry; Z86.19 Personal history of other infectious and parasitic diseases
CPT/HCPCS: 36415; 82140; 86803; 87389; 87522

== ENCOUNTER 2023-07-21 14:18 | Inpatient (IN) | payer OTHER ==
[2023-07-21 15:34] VITALS: BMI 30.4
[2023-07-21] MEDS ORDERED: IBUPROFEN 600 MG TABLET (FP) PO PRN (17:36)
[2023-07-21] MEDS ORDERED: guaiFENesin 600 MG TABLET.ER (FP) PO PRN (17:36)
[2023-07-21] MEDS ORDERED: MAG HYDROX/AL HYDROX/SIMETH 30 ML UNIT-DOSE CUP PO PRN (17:36)
[2023-07-21] MEDS ORDERED: BENZOCAINE/MENTHOL (CHLORASEPTIC ) LOZENGE MM PRN (17:36)
[2023-07-21] MEDS ORDERED: ACETAMINOPHEN 325 MG TABLET (FP) PO PRN (17:36)
[2023-07-21] MEDS ORDERED: NALOXONE HCL 0.4 MG/ML VIAL IM PRN (17:36)
[2023-07-21] MEDS ORDERED: NALOXONE HCL (KLOXXADO) 8 MG SPRAY NS PRN (17:36)
[2023-07-21] MEDS ORDERED: DICYCLOMINE HCL 10 MG CAPSULE PO PRN (17:36)
[2023-07-21] MEDS ORDERED: POLYETHYLENE GLYCOL (HEALTHYLAX) 3350 17 GM PACKET PO PRN (17:36)
[2023-07-21] MEDS ORDERED: BISMUTH SUBSALICYLATE 524 MG/30 ML PO PRN (17:36)
[2023-07-21] MEDS ORDERED: LOPERAMIDE HCL 2 MG CAPSULE PO PRN (17:36)
[2023-07-21] MEDS ORDERED: ONDANSETRON *ODT* 4 MG TABLET SL PRN (17:36)
[2023-07-21] MEDS ORDERED: BENZONATATE 200 MG CAPSULE PO PRN (17:36)
[2023-07-21] MEDS ORDERED: IBUPROFEN 400 MG TABLET (FP) PO PRN (17:36)
[2023-07-21] MEDS: diazePAM 5 MG TABLET PO SCH (22:39)
[2023-07-21] MEDS: THIAMINE HCL 100 MG TABLET (FP) PO SCH (22:39)
[2023-07-21] MEDS: MELATONIN 5 MG TABLETS PO SCH (22:39)
[2023-07-21] MEDS: hydrOXYzine PAMOATE 25 MG CAPSULE (FP) PO PRN (22:42)
[2023-07-21] MEDS: METHOCARBAMOL 500 MG TABLET PO PRN (22:42)
[2023-07-22] MEDS: diazePAM 5 MG TABLET PO SCH ×4 (05:41→22:15)
[2023-07-22] MEDS: PRENATAL VITAMINS W/ FOLIC ACID TABLET (FP) PO SCH (10:24)
[2023-07-22 11:44] LABS: CHLORIDE 106 mmol/L (98-107); SODIUM 141 mmol/L (136-145)
[2023-07-22] MEDS: NICOTINE POLACRILEX 4 MG GUM BUC PRN ×3 (11:46→22:16)
[2023-07-22 11:58] LABS: ALBUMIN 2.8 g/dl (3.4-5.0); ANION GAP 7 mmol/L (4-13); BLOOD UREA NITROGEN 14.3 mg/dL (7-18); CALCIUM 8.2 mg/dL (8.5-10.1); CO2 29 mmol/L (21-32); GLUCOSE,RANDOM 73 mg/dL (74-106)
[2023-07-22 12:00] LABS: SGPT/ALT 45 U/L (13-61)
[2023-07-22 12:01] LABS: BILIRUBIN,TOTAL 0.4 mg/dL (0.2-1); CREATININE 0.9 mg/dL (0.55-1.3); HEMATOCRIT 35.8 % (35.4-49); MCH 31.4 pg (25.7-33.7); MCHC 33.5 g/dl (32.0-35.9); MEAN CELL VOLUME 93.7 fl (80-96); MEAN PLT VOLUME 7.4 fl (7.5-11.1); PLATELET COUNT 438 10^3/uL (134-434); RBC 3.83 M/mm3 (4.00-5.60); RDW 14.2 % (11.9-15.9); SGOT/AST 24 U/L (15-37); TOT PROT 6.4 g/dl (6.4-8.2); WHITE BLOOD COUNT 7.3 K/mm3 (4.0-10.0)
[2023-07-22 12:02] LABS: ALK PHOS 65 U/L (45-117)
[2023-07-22] MEDS: methaDONE HCL 40 MG DISPERSABLE TABLET PO SCH (12:51)
[2023-07-22] MEDS: QUEtiapine FUMARATE 100 MG TABLET (FP) PO SCH ×2 (13:22→22:15)
[2023-07-22] MEDS: MAGNESIUM HYDROX 2400MG/30ML ORAL SUSPENSION 30 ML CUP PO PRN (17:53)
[2023-07-22] MEDS: diazePAM 5 MG TABLET PO PRN (19:08)
[2023-07-22] MEDS ORDERED: traZODone HCL 100 MG TABLET (FP) PO SCH (22:00)
[2023-07-22] MEDS: THIAMINE HCL 100 MG TABLET (FP) PO SCH (22:15)
[2023-07-22] MEDS: MELATONIN 5 MG TABLETS PO SCH (22:15)
[2023-07-22] MEDS: hydrOXYzine PAMOATE 25 MG CAPSULE (FP) PO PRN (22:16)
[2023-07-22] MEDS: METHOCARBAMOL 500 MG TABLET PO PRN (22:16)
[2023-07-23] MEDS: diazePAM 5 MG TABLET PO SCH ×3 (05:28→22:16)
[2023-07-23] MEDS: methaDONE HCL 40 MG DISPERSABLE TABLET PO SCH (05:28)
[2023-07-23] MEDS: PRENATAL VITAMINS W/ FOLIC ACID TABLET (FP) PO SCH (10:20)
[2023-07-23] MEDS: QUEtiapine FUMARATE 100 MG TABLET (FP) PO SCH (10:21)
[2023-07-23] MEDS: NICOTINE POLACRILEX 4 MG GUM BUC PRN ×3 (10:22→22:18)
[2023-07-23] MEDS: hydrOXYzine PAMOATE 25 MG CAPSULE (FP) PO PRN ×2 (13:21→22:17)
[2023-07-23] MEDS: METHOCARBAMOL 500 MG TABLET PO PRN (22:16)
[2023-07-23] MEDS: THIAMINE HCL 100 MG TABLET (FP) PO SCH (22:17)
[2023-07-23] MEDS: MELATONIN 5 MG TABLETS PO SCH (22:17)
[2023-07-24] MEDS: diazePAM 5 MG TABLET PO SCH ×2 (05:44→17:31)
[2023-07-24] MEDS: methaDONE HCL 40 MG DISPERSABLE TABLET PO SCH (05:45)
[2023-07-24] MEDS: NICOTINE POLACRILEX 4 MG GUM BUC PRN ×6 (05:48→22:02)
[2023-07-24] MEDS: diazePAM 5 MG TABLET PO PRN ×2 (09:51→16:01)
[2023-07-24] MEDS: QUEtiapine FUMARATE 200 MG TABLET PO SCH (09:51)
[2023-07-24] MEDS: PRENATAL VITAMINS W/ FOLIC ACID TABLET (FP) PO SCH (09:52)
[2023-07-24] MEDS: LACTULOSE 20 GM/30 ML UDC (FOR ORAL USE ONLY) PO SCH ×2 (13:51→22:00)
[2023-07-24] MEDS: hydrOXYzine PAMOATE 25 MG CAPSULE (FP) PO PRN (21:59)
[2023-07-24] MEDS: METHOCARBAMOL 500 MG TABLET PO PRN (21:59)
[2023-07-24] MEDS: THIAMINE HCL 100 MG TABLET (FP) PO SCH (21:59)
[2023-07-24] MEDS: MELATONIN 5 MG TABLETS PO SCH (22:02)
[2023-07-25] MEDS: NICOTINE POLACRILEX 4 MG GUM BUC PRN ×3 (02:39→12:39)
[2023-07-25] MEDS: LACTULOSE 20 GM/30 ML UDC (FOR ORAL USE ONLY) PO SCH (05:28)
[2023-07-25] MEDS: methaDONE HCL 40 MG DISPERSABLE TABLET PO SCH (05:28)
[2023-07-25] MEDS ORDERED: diazePAM 5 MG TABLET PO ONE (06:00)
[2023-07-25 06:35] VITALS: TEMP 97.7
[2023-07-25 09:44] VITALS: BP 112/71; PULSE 100; RESP 18
[2023-07-25] MEDS: PRENATAL VITAMINS W/ FOLIC ACID TABLET (FP) PO SCH (10:08)
[2023-07-25] MEDS: QUEtiapine FUMARATE 200 MG TABLET PO SCH (10:09)
[2023-07-25] MEDS: hydrOXYzine PAMOATE 25 MG CAPSULE (FP) PO PRN (10:11)
[2023-07-25] MEDS: MAGNESIUM HYDROX 2400MG/30ML ORAL SUSPENSION 30 ML CUP PO PRN (12:51)
== END 2023-07-25 13:04 | disposition home or self-care (01) | DRG 773 ==
LOC: YASAS 14:18 → Y3N 17:35
PROVIDERS: ADMIT Allergy & Immunology; ATTEND Surgery
PROC: HZ2ZZZZ Detoxification Services for Substance Abuse Treatment (ICD-10-PCS; principal; 2023-07-21)
DX: F10.230 Alcohol dependence with withdrawal, uncomplicated (principal); F11.20 Opioid dependence, uncomplicated; F14.20 Cocaine dependence, uncomplicated; F13.20 Sedative, hypnotic or anxiolytic dependence, uncomplicated; F17.210 Nicotine dependence, cigarettes, uncomplicated; F31.9 Bipolar disorder, unspecified; F19.24 Other psychoactive substance dependence with psychoactive substance-induced mood disorder; Z86.19 Personal history of other infectious and parasitic diseases; Z56.0 Unemployment, unspecified; Z59.02 Unsheltered homelessness
CPT/HCPCS: 36415; 80053; 80307; 85027; 86780; 87635

== ENCOUNTER 2023-07-25 13:32 | Inpatient (IN) | payer OTHER ==
[2023-07-25] MEDS ORDERED: LOPERAMIDE HCL 2 MG CAPSULE PO PRN (14:36)
[2023-07-25] MEDS ORDERED: BENZOCAINE/MENTHOL (CHLORASEPTIC ) LOZENGE MM PRN (14:36)
[2023-07-25] MEDS ORDERED: guaiFENesin 600 MG TABLET.ER (FP) PO PRN (14:36)
[2023-07-25] MEDS ORDERED: IBUPROFEN 600 MG TABLET (FP) PO PRN (14:36)
[2023-07-25] MEDS ORDERED: NALOXONE HCL (KLOXXADO) 8 MG SPRAY NS PRN (14:36)
[2023-07-25] MEDS ORDERED: ACETAMINOPHEN 325 MG TABLET (FP) PO PRN (14:36)
[2023-07-25] MEDS ORDERED: NALOXONE HCL 0.4 MG/ML VIAL IVPUSH PRN (14:36)
[2023-07-25] MEDS ORDERED: BENZONATATE 200 MG CAPSULE PO PRN (14:36)
[2023-07-25] MEDS ORDERED: POLYETHYLENE GLYCOL (HEALTHYLAX) 3350 17 GM PACKET PO PRN (14:36)
[2023-07-25] MEDS ORDERED: IBUPROFEN 400 MG TABLET (FP) PO PRN (14:36)
[2023-07-25] MEDS ORDERED: MAG HYDROX/AL HYDROX/SIMETH 30 ML UNIT-DOSE CUP PO PRN (14:36)
[2023-07-25] MEDS: THIAMINE HCL 100 MG TABLET (FP) PO SCH (22:10)
[2023-07-25] MEDS: MELATONIN 5 MG TABLETS PO SCH (22:10)
[2023-07-26] MEDS: methaDONE HCL 40 MG DISPERSABLE TABLET PO SCH (06:26)
[2023-07-26] MEDS: QUEtiapine FUMARATE 200 MG TABLET PO SCH (10:00)
[2023-07-26] MEDS: PRENATAL VITAMINS W/ FOLIC ACID TABLET (FP) PO SCH (10:00)
[2023-07-26] MEDS ORDERED: PATIENT'S OWN MEDICATION (NON-FORMULARY) (Bupropion Hcl [Wellbutrin Xl] 300 MG Tab.Er.24h) PO SCH (10:00)
[2023-07-26] MEDS: MAGNESIUM HYDROX 2400MG/30ML ORAL SUSPENSION 30 ML CUP PO PRN (10:01)
[2023-07-26] MEDS: NICOTINE 14 MG/24 HOURS TOPICAL PATCH TD SCH (13:38)
[2023-07-26] MEDS: NICOTINE POLACRILEX 2 MG GUM BUC PRN ×2 (13:38→21:07)
[2023-07-26] MEDS: COLLOIDAL OATMEAL 1 BAR EACH TP PRN (19:06)
[2023-07-26] MEDS: THIAMINE HCL 100 MG TABLET (FP) PO SCH (21:04)
[2023-07-26] MEDS: MELATONIN 5 MG TABLETS PO SCH (21:04)
[2023-07-26] MEDS: METHOCARBAMOL 500 MG TABLET PO PRN (21:06)
[2023-07-27] MEDS: methaDONE HCL 40 MG DISPERSABLE TABLET PO SCH (06:30)
[2023-07-27] MEDS: NICOTINE POLACRILEX 2 MG GUM BUC PRN ×5 (06:30→22:08)
[2023-07-27] MEDS: NICOTINE 14 MG/24 HOURS TOPICAL PATCH TD SCH (10:04)
[2023-07-27] MEDS: PRENATAL VITAMINS W/ FOLIC ACID TABLET (FP) PO SCH (10:04)
[2023-07-27] MEDS: QUEtiapine FUMARATE 200 MG TABLET PO SCH (10:05)
[2023-07-27] MEDS ORDERED: hydrOXYzine PAMOATE 50 MG CAPSULE (FP) PO ONE (14:15)
[2023-07-27] MEDS: MAGNESIUM HYDROX 2400MG/30ML ORAL SUSPENSION 30 ML CUP PO PRN (17:23)
[2023-07-27] MEDS: METHOCARBAMOL 500 MG TABLET PO PRN (22:09)
[2023-07-27] MEDS: MELATONIN 5 MG TABLETS PO SCH (22:09)
[2023-07-27] MEDS: THIAMINE HCL 100 MG TABLET (FP) PO SCH (22:09)
[2023-07-28] MEDS: methaDONE HCL 40 MG DISPERSABLE TABLET PO SCH (06:06)
[2023-07-28] MEDS: NICOTINE POLACRILEX 2 MG GUM BUC PRN (06:07)
[2023-07-28] MEDS: QUEtiapine FUMARATE 200 MG TABLET PO SCH (09:05)
[2023-07-28] MEDS: PRENATAL VITAMINS W/ FOLIC ACID TABLET (FP) PO SCH (09:06)
[2023-07-28] MEDS: NICOTINE 14 MG/24 HOURS TOPICAL PATCH TD SCH (09:06)
[2023-07-28] MEDS: NICOTINE POLACRILEX 4 MG GUM BUC PRN ×3 (09:07→21:23)
[2023-07-28] MEDS: MAGNESIUM HYDROX 2400MG/30ML ORAL SUSPENSION 30 ML CUP PO PRN (09:07)
[2023-07-28] MEDS: THIAMINE HCL 100 MG TABLET (FP) PO SCH (21:24)
[2023-07-28] MEDS: METHOCARBAMOL 500 MG TABLET PO PRN (21:24)
[2023-07-28] MEDS: MELATONIN 5 MG TABLETS PO SCH (21:24)
[2023-07-29] MEDS: methaDONE HCL 40 MG DISPERSABLE TABLET PO SCH (06:11)
[2023-07-29] MEDS: NICOTINE POLACRILEX 4 MG GUM BUC PRN ×3 (06:12→21:34)
[2023-07-29] MEDS: QUEtiapine FUMARATE 200 MG TABLET PO SCH (09:28)
[2023-07-29] MEDS: hydrOXYzine PAMOATE 25 MG CAPSULE (FP) PO PRN ×2 (09:28→21:34)
[2023-07-29] MEDS: NICOTINE 14 MG/24 HOURS TOPICAL PATCH TD SCH (09:29)
[2023-07-29] MEDS: PRENATAL VITAMINS W/ FOLIC ACID TABLET (FP) PO SCH (09:29)
[2023-07-29] MEDS: SODIUM CHLORIDE NASAL SPRAY 44 ML BOTTLE NS PRN (09:29)
[2023-07-29] MEDS ORDERED: NICOTINE 14 MG/24 HOURS TOPICAL PATCH TD PRN (14:13)
[2023-07-29] MEDS: MELATONIN 5 MG TABLETS PO SCH (21:34)
[2023-07-29] MEDS: THIAMINE HCL 100 MG TABLET (FP) PO SCH (21:34)
[2023-07-30] MEDS: methaDONE HCL 40 MG DISPERSABLE TABLET PO SCH (06:16)
[2023-07-30] MEDS: NICOTINE POLACRILEX 4 MG GUM BUC PRN ×4 (06:18→21:19)
[2023-07-30] MEDS: PRENATAL VITAMINS W/ FOLIC ACID TABLET (FP) PO SCH (10:15)
[2023-07-30] MEDS: QUEtiapine FUMARATE 200 MG TABLET PO SCH (10:16)
[2023-07-30] MEDS: hydrOXYzine PAMOATE 25 MG CAPSULE (FP) PO PRN ×2 (10:16→21:18)
[2023-07-30] MEDS: MAGNESIUM HYDROX 2400MG/30ML ORAL SUSPENSION 30 ML CUP PO PRN (10:29)
[2023-07-30] MEDS: THIAMINE HCL 100 MG TABLET (FP) PO SCH (21:17)
[2023-07-30] MEDS: MELATONIN 5 MG TABLETS PO SCH (21:17)
[2023-07-31] MEDS: methaDONE HCL 40 MG DISPERSABLE TABLET PO SCH (06:12)
[2023-07-31] MEDS: NICOTINE POLACRILEX 4 MG GUM BUC PRN ×4 (06:16→21:20)
[2023-07-31] MEDS: QUEtiapine FUMARATE 200 MG TABLET PO SCH (09:40)
[2023-07-31] MEDS: DOCUSATE SODIUM 100 MG CAPSULE (FP) PO PRN (09:40)
[2023-07-31] MEDS: PRENATAL VITAMINS W/ FOLIC ACID TABLET (FP) PO SCH (09:40)
[2023-07-31] MEDS: MAGNESIUM HYDROX 2400MG/30ML ORAL SUSPENSION 30 ML CUP PO PRN (09:40)
[2023-07-31] MEDS: LACTULOSE 20 GM/30 ML UDC (FOR ORAL USE ONLY) PO PRN (16:14)
[2023-07-31] MEDS: hydrOXYzine PAMOATE 25 MG CAPSULE (FP) PO PRN ×2 (16:15→21:20)
[2023-07-31] MEDS: THIAMINE HCL 100 MG TABLET (FP) PO SCH (21:20)
[2023-07-31] MEDS: MELATONIN 5 MG TABLETS PO SCH (21:20)
[2023-08-01] MEDS: methaDONE HCL 40 MG DISPERSABLE TABLET PO SCH (05:37)
[2023-08-01] MEDS: PRENATAL VITAMINS W/ FOLIC ACID TABLET (FP) PO SCH (09:09)
[2023-08-01] MEDS: LACTULOSE 20 GM/30 ML UDC (FOR ORAL USE ONLY) PO PRN (09:10)
[2023-08-01] MEDS: QUEtiapine FUMARATE 200 MG TABLET PO SCH (09:10)
[2023-08-01] MEDS: NICOTINE POLACRILEX 4 MG GUM BUC PRN (09:11)
[2023-08-01] MEDS: THIAMINE HCL 100 MG TABLET (FP) PO SCH (21:24)
[2023-08-01] MEDS: MELATONIN 5 MG TABLETS PO SCH (21:24)
[2023-08-01] MEDS: hydrOXYzine PAMOATE 25 MG CAPSULE (FP) PO PRN (21:25)
[2023-08-02] MEDS: methaDONE HCL 40 MG DISPERSABLE TABLET PO SCH (06:07)
[2023-08-02] MEDS: NICOTINE POLACRILEX 4 MG GUM BUC PRN ×2 (06:07→21:15)
[2023-08-02] MEDS: hydrOXYzine PAMOATE 25 MG CAPSULE (FP) PO PRN ×2 (06:07→21:15)
[2023-08-02] MEDS: LACTULOSE 20 GM/30 ML UDC (FOR ORAL USE ONLY) PO PRN (09:45)
[2023-08-02] MEDS: QUEtiapine FUMARATE 200 MG TABLET PO SCH (09:46)
[2023-08-02] MEDS: PRENATAL VITAMINS W/ FOLIC ACID TABLET (FP) PO SCH (09:46)
[2023-08-02] MEDS: SODIUM CHLORIDE NASAL SPRAY 44 ML BOTTLE NS PRN ×2 (09:46→21:15)
[2023-08-02] MEDS: THIAMINE HCL 100 MG TABLET (FP) PO SCH (21:14)
[2023-08-02] MEDS: MELATONIN 5 MG TABLETS PO SCH (21:14)
[2023-08-03] MEDS: methaDONE HCL 40 MG DISPERSABLE TABLET PO SCH (06:05)
[2023-08-03] MEDS: hydrOXYzine PAMOATE 25 MG CAPSULE (FP) PO PRN (06:07)
[2023-08-03] MEDS: NICOTINE POLACRILEX 4 MG GUM BUC PRN ×4 (06:08→21:23)
[2023-08-03] MEDS: QUEtiapine FUMARATE 200 MG TABLET PO SCH (09:21)
[2023-08-03] MEDS: LACTULOSE 20 GM/30 ML UDC (FOR ORAL USE ONLY) PO PRN (09:22)
[2023-08-03] MEDS: PRENATAL VITAMINS W/ FOLIC ACID TABLET (FP) PO SCH (09:23)
[2023-08-03] MEDS: THIAMINE HCL 100 MG TABLET (FP) PO SCH (21:23)
[2023-08-03] MEDS: MELATONIN 5 MG TABLETS PO SCH (21:23)
[2023-08-04] MEDS: methaDONE HCL 40 MG DISPERSABLE TABLET PO SCH (06:01)
[2023-08-04] MEDS: NICOTINE POLACRILEX 4 MG GUM BUC PRN ×4 (06:02→21:11)
[2023-08-04] MEDS: LACTULOSE 20 GM/30 ML UDC (FOR ORAL USE ONLY) PO PRN (10:03)
[2023-08-04] MEDS: QUEtiapine FUMARATE 200 MG TABLET PO SCH (10:05)
[2023-08-04] MEDS: PRENATAL VITAMINS W/ FOLIC ACID TABLET (FP) PO SCH (10:05)
[2023-08-04] MEDS: hydrOXYzine PAMOATE 25 MG CAPSULE (FP) PO PRN (21:10)
[2023-08-04] MEDS: THIAMINE HCL 100 MG TABLET (FP) PO SCH (21:10)
[2023-08-04] MEDS: MELATONIN 5 MG TABLETS PO SCH (21:10)
[2023-08-05] MEDS: methaDONE HCL 40 MG DISPERSABLE TABLET PO SCH (06:13)
[2023-08-05] MEDS: NICOTINE POLACRILEX 4 MG GUM BUC PRN ×5 (06:14→21:29)
[2023-08-05] MEDS: PRENATAL VITAMINS W/ FOLIC ACID TABLET (FP) PO SCH (09:41)
[2023-08-05] MEDS: QUEtiapine FUMARATE 200 MG TABLET PO SCH (09:42)
[2023-08-05] MEDS: LACTULOSE 20 GM/30 ML UDC (FOR ORAL USE ONLY) PO PRN (09:42)
[2023-08-05] MEDS ORDERED: WITCH HAZEL 50% (TUCKS) 40 PAD/JAR PAD TP PRN (14:35)
[2023-08-05] MEDS: THIAMINE HCL 100 MG TABLET (FP) PO SCH (21:28)
[2023-08-05] MEDS: MELATONIN 5 MG TABLETS PO SCH (21:28)
[2023-08-05] MEDS: HYDROCORTISONE 2.5% TOPICAL CREAM 30 GM TUBE TP SCH (21:29)
[2023-08-06] MEDS: methaDONE HCL 40 MG DISPERSABLE TABLET PO SCH (06:17)
[2023-08-06] MEDS: HYDROCORTISONE 2.5% TOPICAL CREAM 30 GM TUBE TP SCH ×2 (09:50→22:12)
[2023-08-06] MEDS: QUEtiapine FUMARATE 200 MG TABLET PO SCH (09:52)
[2023-08-06] MEDS: LACTULOSE 20 GM/30 ML UDC (FOR ORAL USE ONLY) PO PRN (09:52)
[2023-08-06] MEDS: PRENATAL VITAMINS W/ FOLIC ACID TABLET (FP) PO SCH (09:52)
[2023-08-06] MEDS: NICOTINE POLACRILEX 4 MG GUM BUC PRN (09:53)
[2023-08-06] MEDS: MELATONIN 5 MG TABLETS PO SCH (22:12)
[2023-08-06] MEDS: THIAMINE HCL 100 MG TABLET (FP) PO SCH (22:12)
[2023-08-07] MEDS: methaDONE HCL 40 MG DISPERSABLE TABLET PO SCH (06:01)
[2023-08-07] MEDS: NICOTINE POLACRILEX 4 MG GUM BUC PRN ×3 (06:02→12:33)
[2023-08-07] MEDS: QUEtiapine FUMARATE 200 MG TABLET PO SCH (09:48)
[2023-08-07] MEDS: hydrOXYzine PAMOATE 25 MG CAPSULE (FP) PO PRN (09:48)
[2023-08-07] MEDS: HYDROCORTISONE 2.5% TOPICAL CREAM 30 GM TUBE TP SCH ×2 (09:49→21:36)
[2023-08-07] MEDS: PRENATAL VITAMINS W/ FOLIC ACID TABLET (FP) PO SCH (09:49)
[2023-08-07] MEDS: THIAMINE HCL 100 MG TABLET (FP) PO SCH (21:36)
[2023-08-07] MEDS: MELATONIN 5 MG TABLETS PO SCH (21:36)
[2023-08-08] MEDS: methaDONE HCL 40 MG DISPERSABLE TABLET PO SCH (06:09)
[2023-08-08] MEDS: NICOTINE POLACRILEX 4 MG GUM BUC PRN ×3 (06:10→21:31)
[2023-08-08] MEDS: QUEtiapine FUMARATE 200 MG TABLET PO SCH (09:47)
[2023-08-08] MEDS: PRENATAL VITAMINS W/ FOLIC ACID TABLET (FP) PO SCH (09:48)
[2023-08-08] MEDS: HYDROCORTISONE 2.5% TOPICAL CREAM 30 GM TUBE TP SCH ×2 (09:49→21:30)
[2023-08-08] MEDS: hydrOXYzine PAMOATE 25 MG CAPSULE (FP) PO PRN (21:30)
[2023-08-08] MEDS: THIAMINE HCL 100 MG TABLET (FP) PO SCH (21:30)
[2023-08-08] MEDS: MELATONIN 5 MG TABLETS PO SCH (21:30)
[2023-08-09] MEDS: methaDONE HCL 40 MG DISPERSABLE TABLET PO SCH (07:01)
[2023-08-09] MEDS: NICOTINE POLACRILEX 4 MG GUM BUC PRN ×3 (07:09→21:36)
[2023-08-09] MEDS: PRENATAL VITAMINS W/ FOLIC ACID TABLET (FP) PO SCH (09:32)
[2023-08-09] MEDS: QUEtiapine FUMARATE 200 MG TABLET PO SCH (09:32)
[2023-08-09] MEDS: LACTULOSE 20 GM/30 ML UDC (FOR ORAL USE ONLY) PO PRN (09:33)
[2023-08-09] MEDS: HYDROCORTISONE 2.5% TOPICAL CREAM 30 GM TUBE TP SCH ×2 (09:34→21:34)
[2023-08-09] MEDS: THIAMINE HCL 100 MG TABLET (FP) PO SCH (21:34)
[2023-08-09] MEDS: MELATONIN 5 MG TABLETS PO SCH (21:35)
[2023-08-09] MEDS: hydrOXYzine PAMOATE 25 MG CAPSULE (FP) PO PRN (21:36)
[2023-08-10] MEDS: NICOTINE POLACRILEX 4 MG GUM BUC PRN ×3 (06:27→21:31)
[2023-08-10] MEDS: methaDONE HCL 40 MG DISPERSABLE TABLET PO SCH (06:27)
[2023-08-10] MEDS: HYDROCORTISONE 2.5% TOPICAL CREAM 30 GM TUBE TP PRN (10:18)
[2023-08-10] MEDS: PRENATAL VITAMINS W/ FOLIC ACID TABLET (FP) PO SCH (10:19)
[2023-08-10] MEDS: QUEtiapine FUMARATE 200 MG TABLET PO SCH (10:19)
[2023-08-10] MEDS: LACTULOSE 20 GM/30 ML UDC (FOR ORAL USE ONLY) PO PRN (10:20)
[2023-08-10] MEDS: DOCUSATE SODIUM 100 MG CAPSULE (FP) PO PRN (10:20)
[2023-08-10] MEDS: MELATONIN 5 MG TABLETS PO SCH (21:30)
[2023-08-10] MEDS: THIAMINE HCL 100 MG TABLET (FP) PO SCH (21:31)
[2023-08-11] MEDS: methaDONE HCL 40 MG DISPERSABLE TABLET PO SCH (06:11)
[2023-08-11] MEDS: NICOTINE POLACRILEX 4 MG GUM BUC PRN ×2 (06:13→09:50)
[2023-08-11] MEDS: COLLOIDAL OATMEAL 1 BAR EACH TP PRN (09:47)
[2023-08-11] MEDS: PRENATAL VITAMINS W/ FOLIC ACID TABLET (FP) PO SCH (09:48)
[2023-08-11] MEDS: LACTULOSE 20 GM/30 ML UDC (FOR ORAL USE ONLY) PO PRN (09:48)
[2023-08-11] MEDS: QUEtiapine FUMARATE 200 MG TABLET PO SCH (09:49)
[2023-08-11] MEDS: HYDROCORTISONE 2.5% TOPICAL CREAM 30 GM TUBE TP PRN (09:50)
[2023-08-11] MEDS: MELATONIN 5 MG TABLETS PO SCH (21:13)
[2023-08-11] MEDS: THIAMINE HCL 100 MG TABLET (FP) PO SCH (21:13)
[2023-08-12] MEDS: methaDONE HCL 40 MG DISPERSABLE TABLET PO SCH (06:18)
[2023-08-12] MEDS: NICOTINE POLACRILEX 4 MG GUM BUC PRN ×3 (06:20→12:11)
[2023-08-12] MEDS: LACTULOSE 20 GM/30 ML UDC (FOR ORAL USE ONLY) PO PRN (10:12)
[2023-08-12] MEDS: PRENATAL VITAMINS W/ FOLIC ACID TABLET (FP) PO SCH (10:13)
[2023-08-12] MEDS: HYDROCORTISONE 2.5% TOPICAL CREAM 30 GM TUBE TP PRN (10:13)
[2023-08-12] MEDS: QUEtiapine FUMARATE 200 MG TABLET PO SCH (10:13)
[2023-08-12] MEDS: THIAMINE HCL 100 MG TABLET (FP) PO SCH (21:34)
[2023-08-12] MEDS: MELATONIN 5 MG TABLETS PO SCH (21:34)
[2023-08-13] MEDS: methaDONE HCL 40 MG DISPERSABLE TABLET PO SCH (06:12)
[2023-08-13] MEDS: NICOTINE POLACRILEX 4 MG GUM BUC PRN ×2 (06:13→09:55)
[2023-08-13] MEDS: QUEtiapine FUMARATE 200 MG TABLET PO SCH (09:51)
[2023-08-13] MEDS: PRENATAL VITAMINS W/ FOLIC ACID TABLET (FP) PO SCH (09:51)
[2023-08-13] MEDS: LACTULOSE 20 GM/30 ML UDC (FOR ORAL USE ONLY) PO PRN (09:56)
[2023-08-13] MEDS: THIAMINE HCL 100 MG TABLET (FP) PO SCH (22:16)
[2023-08-13] MEDS: MELATONIN 5 MG TABLETS PO SCH (22:16)
[2023-08-14] MEDS: methaDONE HCL 40 MG DISPERSABLE TABLET PO SCH (06:09)
[2023-08-14] MEDS: NICOTINE POLACRILEX 4 MG GUM BUC PRN ×2 (06:13→10:20)
[2023-08-14] MEDS: PRENATAL VITAMINS W/ FOLIC ACID TABLET (FP) PO SCH (10:18)
[2023-08-14] MEDS: HYDROCORTISONE 2.5% TOPICAL CREAM 30 GM TUBE TP PRN (10:18)
[2023-08-14] MEDS: QUEtiapine FUMARATE 200 MG TABLET PO SCH (10:18)
[2023-08-14] MEDS: LACTULOSE 20 GM/30 ML UDC (FOR ORAL USE ONLY) PO PRN (10:20)
[2023-08-14] MEDS: THIAMINE HCL 100 MG TABLET (FP) PO SCH (23:41)
[2023-08-14] MEDS: MELATONIN 5 MG TABLETS PO SCH (23:42)
[2023-08-15] MEDS: methaDONE HCL 40 MG DISPERSABLE TABLET PO SCH (06:05)
[2023-08-15] MEDS: NICOTINE POLACRILEX 4 MG GUM BUC PRN ×3 (06:05→20:02)
[2023-08-15] MEDS: QUEtiapine FUMARATE 200 MG TABLET PO SCH (09:33)
[2023-08-15] MEDS: PRENATAL VITAMINS W/ FOLIC ACID TABLET (FP) PO SCH (09:33)
[2023-08-15] MEDS: LACTULOSE 20 GM/30 ML UDC (FOR ORAL USE ONLY) PO PRN (09:34)
[2023-08-15] MEDS: THIAMINE HCL 100 MG TABLET (FP) PO SCH (21:15)
[2023-08-15] MEDS: MELATONIN 5 MG TABLETS PO SCH (22:15)
[2023-08-16] MEDS: methaDONE HCL 40 MG DISPERSABLE TABLET PO SCH (06:16)
[2023-08-16] MEDS: NICOTINE POLACRILEX 4 MG GUM BUC PRN ×2 (06:17→09:25)
[2023-08-16] MEDS: LACTULOSE 20 GM/30 ML UDC (FOR ORAL USE ONLY) PO PRN (09:23)
[2023-08-16] MEDS: QUEtiapine FUMARATE 200 MG TABLET PO SCH (09:23)
[2023-08-16] MEDS: PRENATAL VITAMINS W/ FOLIC ACID TABLET (FP) PO SCH (09:23)
[2023-08-16] MEDS: HYDROCORTISONE 2.5% TOPICAL CREAM 30 GM TUBE TP PRN (09:24)
[2023-08-16] MEDS: THIAMINE HCL 100 MG TABLET (FP) PO SCH (21:29)
[2023-08-16] MEDS: MELATONIN 5 MG TABLETS PO SCH (21:29)
[2023-08-17] MEDS: methaDONE HCL 40 MG DISPERSABLE TABLET PO SCH (06:19)
[2023-08-17] MEDS: NICOTINE POLACRILEX 4 MG GUM BUC PRN ×3 (06:21→13:36)
[2023-08-17] MEDS: QUEtiapine FUMARATE 200 MG TABLET PO SCH (10:06)
[2023-08-17] MEDS: HYDROCORTISONE 2.5% TOPICAL CREAM 30 GM TUBE TP PRN (10:07)
[2023-08-17] MEDS: PRENATAL VITAMINS W/ FOLIC ACID TABLET (FP) PO SCH (10:07)
[2023-08-17] MEDS: LACTULOSE 20 GM/30 ML UDC (FOR ORAL USE ONLY) PO PRN (10:08)
[2023-08-17] MEDS: THIAMINE HCL 100 MG TABLET (FP) PO SCH (21:27)
[2023-08-17] MEDS: MELATONIN 5 MG TABLETS PO SCH (21:27)
[2023-08-18] MEDS: methaDONE HCL 40 MG DISPERSABLE TABLET PO SCH (06:09)
[2023-08-18] MEDS: NICOTINE POLACRILEX 4 MG GUM BUC PRN ×2 (06:10→09:26)
[2023-08-18] MEDS: PRENATAL VITAMINS W/ FOLIC ACID TABLET (FP) PO SCH (09:24)
[2023-08-18] MEDS: QUEtiapine FUMARATE 200 MG TABLET PO SCH (09:24)
[2023-08-18] MEDS: LACTULOSE 20 GM/30 ML UDC (FOR ORAL USE ONLY) PO PRN (09:25)
[2023-08-18] MEDS: MELATONIN 5 MG TABLETS PO SCH (23:09)
[2023-08-18] MEDS: THIAMINE HCL 100 MG TABLET (FP) PO SCH (23:10)
[2023-08-19] MEDS: methaDONE HCL 40 MG DISPERSABLE TABLET PO SCH (06:11)
[2023-08-19] MEDS: NICOTINE POLACRILEX 4 MG GUM BUC PRN ×3 (06:11→21:12)
[2023-08-19 06:38] VITALS: RESP 16
[2023-08-19] MEDS: QUEtiapine FUMARATE 200 MG TABLET PO SCH (09:55)
[2023-08-19] MEDS: PRENATAL VITAMINS W/ FOLIC ACID TABLET (FP) PO SCH (09:55)
[2023-08-19] MEDS: LACTULOSE 20 GM/30 ML UDC (FOR ORAL USE ONLY) PO PRN (09:56)
[2023-08-19] MEDS: MELATONIN 5 MG TABLETS PO SCH (21:12)
[2023-08-19] MEDS: THIAMINE HCL 100 MG TABLET (FP) PO SCH (21:12)
[2023-08-20] MEDS: methaDONE HCL 40 MG DISPERSABLE TABLET PO SCH (06:11)
[2023-08-20] MEDS: NICOTINE POLACRILEX 4 MG GUM BUC PRN ×2 (06:12→09:05)
[2023-08-20 06:37] VITALS: BP 103/70; PULSE 84; TEMP 98.1
[2023-08-20] MEDS: PRENATAL VITAMINS W/ FOLIC ACID TABLET (FP) PO SCH (09:02)
[2023-08-20] MEDS: QUEtiapine FUMARATE 200 MG TABLET PO SCH (09:02)
== END 2023-08-20 09:12 | disposition home or self-care (01) | DRG 772 ==
LOC: YASAS 13:32 → Y3E 13:36
PROVIDERS: ADMIT Allergy & Immunology; ATTEND Psychiatry & Neurology Pain Medicine
PROC: HZ42ZZZ Group Counseling for Substance Abuse Treatment, Cognitive-Behavioral (ICD-10-PCS; principal; 2023-07-25)
DX: F10.20 Alcohol dependence, uncomplicated (principal); F11.20 Opioid dependence, uncomplicated; F13.20 Sedative, hypnotic or anxiolytic dependence, uncomplicated; F14.20 Cocaine dependence, uncomplicated; F17.210 Nicotine dependence, cigarettes, uncomplicated; F90.9 Attention-deficit hyperactivity disorder, unspecified type; F19.980 Other psychoactive substance use, unspecified with psychoactive substance-induced anxiety disorder; F19.982 Other psychoactive substance use, unspecified with psychoactive substance-induced sleep disorder; F19.94 Other psychoactive substance use, unspecified with psychoactive substance-induced mood disorder; R63.4 Abnormal weight loss; K59.00 Constipation, unspecified; Z86.19 Personal history of other infectious and parasitic diseases
CPT/HCPCS: 87635; 93005; 93010